=== PATIENT | female | born 1955 | race Caucasian/White ===

== ENCOUNTER → 2018-03-01 10:08 | Outpatient (REF) | payer SELFPAY | LOC: OM 10:08 | PROVIDERS: PCP Family Medicine; Visit Provider Nurse Practitioner Family | DX: Z02.1 Encounter for pre-employment examination (principal) ==

== ENCOUNTER 2018-07-15 00:50 | Outpatient (CLI) | payer OTHER, SELFPAY ==
--- NOTE | 2018-07-15 11:30 | DI.CT_ITS ---
SYMPTOM/DIAGNOSIS: ABD PAIN, R10.9, WT LOSS, F63.4, NAUSEA, R11.0, TOBACCO USE, Z72.0 CHEST, ABDOMEN AND PELVIC CT: Comparison is made with CT of the abdomen and pelvis dated 11/09/17. Images were performed from the clavicles through the ischial tuberosities after IV and oral contrast. There is dilatation of the ascending aorta to 4.1 cm. There is no evidence of dissection. No pleural or pericardial effusions or adenopathy is seen. No infiltrates or pulmonary nodules are identified. Screw and plate fixation is noted in the left clavicle. No lytic or blastic bony lesions are seen. Nerve root sheath cysts are noted in the sacral levels. Degenerative disc changes are noted. The patient is status post cholecystectomy. The liver, spleen, pancreas, kidneys and adrenals are unremarkable. The appendix is normal. The patient is status post hysterectomy. The bladder is unremarkable. Atherosclerotic changes are seen in the abdominal aorta. There is no evidence of an aneurysm. IMPRESSION: Dilatation of the ascending to 4.1 cm. No acute abnormality is seen in the chest, abdomen or pelvis.
[2018-07-15 11:51] LABS: CREATININE 0.86 mg/dL (0.55-1.02)
[2018-07-15] MEDS: Omnipaque 350 MG/ML 100 ML BTL IJ (13:38)
== END 2018-07-15 01:10 ==
PROVIDERS: PCP Family Medicine; Visit Provider Family Medicine
DX: R10.9 Unspecified abdominal pain (principal); R63.4 Abnormal weight loss; R11.0 Nausea; I77.819 Aortic ectasia, unspecified site; Z72.0 Tobacco use
CPT/HCPCS: 36415; 74177; 71260; 82565; J3490

== ENCOUNTER 2018-12-17 14:58 | Observation (INO) | payer MEDICAID, SELFPAY ==
[2018-12-17] VITALS (24 sets, daily range): BP systolic 114–166; BP diastolic 71–141; PULSE 70–131; RESP 13–21; TEMP 36.4–37.1; O2SAT 79–100
--- NOTE | 2018-12-17 15:03 | DI.RAD_ITS ---
SYMPTOM/DIAGNOSIS: UNRESPONSIVE, ? FX AP PELVIS: A single AP view of the pelvis was obtained. A single view is not adequate to exclude fracture but no fracture is identified on this film. Presumed old deformity of left iliac wing noted, this appears to have been present on previous CT of 07/15/18. PA AND LATERAL CHEST: The heart is enlarged. The lungs are grossly clear and well expanded. There may be slight pulmonary interstitial prominence on a chronic basis. No focal consolidation is seen. CONCLUSION: No evidence of acute disease.
--- NOTE | 2018-12-17 15:04 | W.ED.GENAD ---
Discharge Plan Disposition Patient Disposition: [facility] INPATIENT Condition: Stable Discharge Details Chief Complaint: AMS/LOC Clinical Impression: Altered mental status, Unresponsive state Admit Date/Time: 12/17/18 17:26 Admit Provider: Alfredo Phillips Attending Provider: Alfredo Phillips Primary Care Provider: Ailyn Barbosa ED Provider: Jessica Jimenes Medical Decision Making 63-year-old female with a history of reported spinal cancer, hypertension, hyperlipidemia, migraines and GERD who presents for unresponsiveness since 8 AM this morning. Fingerstick per EMS 130s, no response to Narcan. Vitals within normal limits per EMS, slightly hypotensive with systolic blood pressure in the 100s. EMS noted eyelids fluttering. Unable to assess for gag reflex. Patient taken immediately to CT to rule out CVA and no obvious acute bleeding on CT. Patient noted to have episode of shaking while and CT which did not appear consistent with seizure-like activity as it was waxing and waning. 1520 -- + gag reflex noted after back from CT. Vitals within normal limits. She still has intermittent shaking noted in R upper extremity but this resolves when lifting extremity. Does not appear c/w obvious seizure. Will give a dose of ativan to monitor response. EKG notes a rate of 88, sinus, and no acute ST findings. 1545 --roommate now present in the ED and states that patient was at her normal baseline last night. States she smokes marijuana but denies any alcohol or other drug use. He states he found patient at 2 PM this afternoon laying on the ground next to the toilet. There is no evidence of trauma. He states he believed that patient mowed the lawn and did some gardening today due to work noted around the house. He states that patient was recently terminated from her job in September and has been stressed due to this. Roommate also states that patient told him she was diagnosed with spinal cancer last year. There is no mention of this in the primary care doctor's note from 1 week ago. During this discussion in the room, patient appeared to demonstrate purposeful movement, twitching fingers in the L hand and moving both shoulders and R arm. Review of records from PCP office with Dr. Barbosa on 12/07/18 notes that patient was evaluated for her chronic low back pain and had refill of her tramadol. Bottle is present in the ED and notes that it is near full. Dr. Barbosa's note states that patient has been frustrated and having a hard time dealing with the recent loss of her job and inability to obtain disability. Labs and imaging reviewed so far and unremarkable. Normal white blood cell count, troponin negative, urinalysis notes ketones but no obvious infection. Brother is now present in the ED who states that he lives behind patient and did notice some tools outside in the yard today and believes she mowed the lawn. He denies any known history of seizures and states this is unlike her baseline. 1710 --remainder of imaging reviewed and unremarkable for acute findings. CT cervical spine notes a 1.5 cm right thyroid nodule and thyroid ultrasound recommended. 1720 --reassessment of patient noted that she has some purposeful movement but still unresponsive to voice and painful stimuli. Will admit for unresponsiveness and continued altered mental status. As roommate and brother had not seen patient earlier today, there is an unknown downtime when she was found at 2 PM and therefore would be contraindicated for TPA, and as she has had purposeful movement noted b/l at times, does not appear consistent with CVA, but likely can consider MRI upon admission. 1730 --d/w Dr. Phillips - accepts pt for admission. Medical Records Medical records reviewed: Yes I reviewed the patient's medical records. Imaging Data Radiologic Study: Radiologist's impression: CT Head Without Contrast EXAM DATE/TIME: 12/17/2018 3:02 PM CLINICAL HISTORY: 63 years old, female; Signs and symptoms; Other: Unresponsive, R/O acute CVA; Patient HX: Patient has spinal CA TECHNIQUE: Imaging protocol: Axial computed tomography images of the head without contrast. Coronal and sagittal reformatted images were created and reviewed. Radiation optimization: All CT scans at this facility use at least one of these dose optimization techniques: automated exposure control; mA and/or kV adjustment per patient size (includes targeted exams where dose is matched to clinical indication); or iterative reconstruction. Other technique: STROKE PROTOCOL was implemented. COMPARISON: No relevant prior studies available. FINDINGS: Brain: Age appropriate involutional change. No cerebral edema. No large territorial infarct. Normal hernandez-white differentiation. Midline shift: No extra-axial collections. No mass or midline shift. Ventricles: The ventricles are normal in position. No hydrocephalus. Bones/joints: No acute fracture. Sinuses: Mild mucosal thickening in the ethmoid sinuses. No air-fluid levels. Mastoid air cells: The tympanomastoid air cells are normally aerated as visualized. Orbits: The orbits are unremarkable as visualized. Soft tissues: The soft tissues are unremarkable. Vasculature: Calcification of the cavernous carotid arteries. IMPRESSION: 1. No acute intracranial findings. 2. As a negative CT scan does not exclude an acute stroke, if there is persistent concern for an acute infarct, followup MRI of the brain with diffusion weighted images (if there are no contraindications to MRI) or CT angiogram of the head and neck with perfusion imaging could be performed. Alternatively CT scan of the brain within 24 hours is recommended. Radiologic Study #2: Radiologist's impression: XR Chest, 2 Views EXAM DATE/TIME: 12/17/2018 3:03 PM CLINICAL HISTORY: 63 years old, female; Signs and symptoms; Other: Unresponsive, R/O acute process TECHNIQUE: Imaging protocol: XR of the chest, 2 views. COMPARISON: CT Abdomen^CAP WITH (Adult) 07/15/2018 1:24 PM FINDINGS: Lungs: Mild interstitial prominence may represent interstitial edema or inflammation. No focal parenchymal lung lesions. Pleural space: No pleural effusion. No pneumothorax. Heart/Mediastinum: Mild cardiomegaly. This appearance may be accentuated by AP portable technique. Vasculature: Tortuous calcified thoracic aorta. Bones/joints: Status post ORIF talar fracture. Widening of the LEFT acromioclavicular joint. Degenerative change) or clavicular joint. No acute osseous findings. Mild degenerative changes of the thoracic spine. IMPRESSION: 1. Mild cardiomegaly. 2. Mild interstitial prominence may represent interstitial edema or inflammation. Radiologic Study #3: Radiologist's impression: CT Cervical Spine Without Contrast EXAM DATE/TIME: 12/17/2018 3:25 PM CLINICAL HISTORY: 63 years old, female; Signs and symptoms; Other: R/O fracture, unknown injury TECHNIQUE: Imaging protocol: Axial computed tomography images of the cervical spine without contrast. Coronal and sagittal reformatted images were created and reviewed. Radiation optimization: All CT scans at this facility use at least one of these dose optimization techniques: automated exposure control; mA and/or kV adjustment per patient size (includes targeted exams where dose is matched to clinical indication); or iterative reconstruction. COMPARISON: No relevant prior studies available. FINDINGS: Vertebrae: Straightening of cervical lordosis. Mild dextroscoliosis. Mild anterolisthesis at C3-C4 may be on degenerative basis. Multilevel disc space narrowing from C3-C4 through C7-T1 and at T2-T3. Endplate osteophytes, facet arthropathy, and uncovertebral osteophyte formation at multiple levels. Multilevel bilateral foraminal stenosis. Mild central canal stenosis at C3-C4 through C6-C7. No acute fracture or traumatic subluxation. Discs/Spinal canal/Neural foramina: See Vertebrae Finding. Other bones/joints: No destructive osseous lesions. Soft tissues: Soft tissues are unremarkable. Oropharynx: Foci of calcification of the palatine and lingual tonsils consistent with prior infection or inflammation. Thyroid: 1.5 cm hypoattenuated RIGHT thyroid nodule. Lungs: Lung apices are grossly unremarkable. IMPRESSION: 1. No acute findings. 2. 1.5 cm RIGHT thyroid nodule. Thyroid sonography is recommended. Reference: Rusty Serna, et al. (2015). Managing Incidental Thyroid Nodules Detected on Imaging: White Paper of the ACR Incidental Thyroid Findings Committee. Journal of the [place] [employer], 12(2), 143-150. Radiologic Study #4: Radiologist's impression: XR Pelvis EXAM DATE/TIME: 12/17/2018 3:25 PM CLINICAL HISTORY: 63 years old, female; Signs and symptoms; Other: R/O fracture TECHNIQUE: Imaging protocol: XR pelvis. Views: 1 or 2 view. COMPARISON: CT Abdomen^CAP WITH (Adult) 07/15/2018 1:24 PM FINDINGS: Bones/joints: There is deformity of the LEFT lateral iliac bone which is likely developmental in nature and is unchanged since previous scan. No acute fracture or dislocation. Degenerative changes in the lumbar spine and sacroiliac joints. No aggressive osseous lesions. Soft tissues: Surgical clip in RIGHT lower quadrant. IMPRESSION: No acute findings. Lab Data Lab results reviewed: Yes I reviewed the patient's lab results. Laboratory Tests Range/Units 12/17/18 12/17/18 12/17/18 15:15 15:15 15:15 WBC (4.4-10.8) k/cumm 8.45 RBC (4.00-5.20) m/cumm 4.76 Hgb (12.0-15.5) g/dL 14.7 Hct (36.0-46.0) % 43.5 MCV (80-95) fL 91.4 MCH (27.0-33.0) pg 30.9 MCHC (32.0-36.0) g/dL 33.8 RDW (11.7-14.6) % 13.0 Plt Count (130-400) x1000/uL 187 MPV (8.0-11.0) fL 9.6 Immature Gran % 0.2 Neutrophils % 73.0 Lymphocytes % 18.1 Monocytes % 6.9 Eosinophils % 1.4 Basophils % 0.4 Absolute Neutrophils (1.2-6.7) k/cumm 6.17 Absolute Lymphocytes (1.2-3.4) k/cumm 1.53 Absolute Monocytes (0.11-0.7) k/cumm 0.58 Absolute Eosinophils (0.0-0.7) k/cumm 0.12 Absolute Basophils (0.0-0.2) k/cumm 0.03 Sodium (136-145) mmol/L 139 Potassium (3.5-5.1) mmol/L 3.4 L Chloride (98-107) mmol/L 100 Carbon Dioxide (21.0-32.0) mmol/L 25.5 Anion Gap (3-11) mmol/L 13.5 H BUN (7-18) mg/dL 16 Creatinine (0.55-1.02) mg/dL 0.96 Estimated GFR/1.73 m2 (mL/min/1.73m2) 59.09 Glucose (70-100) mg/dL 116 H Calcium (8.5-10.1) mg/dL 9.5 Magnesium (1.8-2.4) mg/dL 2.3 Total Bilirubin (0.2-1.0) mg/dL 0.2 AST (15-37) U/L 14 L ALT (12-78) U/L 20 Alkaline Phosphatase (46-116) U/L 107 Troponin I (0.00-0.06) ng/mL < 0.02 Total Protein (6.4-8.2) g/dL 7.9 Albumin (3.4-5.0) g/dL 3.9 Urine Color (Yellow) Urine Clarity Urine pH (5-8) Ur Specific [place] (1.005-1.025) Urine Protein (Negative) mg/dL Urine Ketones (Negative) mg/dL Urine Blood (Negative) Urine Nitrite (Negative) Urine Bilirubin (Negative) Urine Urobilinogen (Up TO 0.2) EU/dL Ur Leukocyte Esterase (Negative) Urine RBC (0-2) Urine WBC (0-5) HPF Ur Epithelial Cells (Negative) HPF Urine Crystals (Negative) HPF Urine Bacteria (Negative) HPF Urine Casts (Negative) LPF Urine Mucus (Negative) Ur Culture Indicated? Urine Glucose (Negative) mg/dL Salicylates (2.8-20.0) mg/dL 5.6 Urine Opiates Screen (Negative) Urine Methadone Screen (Negative) Acetaminophen (10-30) ug/mL < 2 L Ur Barbiturates Screen (Negative) Ur Tricyclics Screen (Negative) Ur Amphetamines Screen (Negative) U Benzodiazepines Scrn (Negative) Urine Cocaine Screen (Negative) Ur THC Screen (Negative) Ethyl Alcohol (<3) mg/dL Range/Units 12/17/18 12/17/18 12/17/18 15:15 15:27 15:27 WBC (4.4-10.8) k/cumm RBC (4.00-5.20) m/cumm Hgb (12.0-15.5) g/dL Hct (36.0-46.0) % MCV (80-95) fL MCH (27.0-33.0) pg MCHC (32.0-36.0) g/dL RDW (11.7-14.6) % Plt Count (130-400) x1000/uL MPV (8.0-11.0) fL Immature Gran % Neutrophils % Lymphocytes % Monocytes % Eosinophils % Basophils % Absolute Neutrophils (1.2-6.7) k/cumm Absolute Lymphocytes (1.2-3.4) k/cumm Absolute Monocytes (0.11-0.7) k/cumm Absolute Eosinophils (0.0-0.7) k/cumm Absolute Basophils (0.0-0.2) k/cumm Sodium (136-145) mmol/L Potassium (3.5-5.1) mmol/L Chloride (98-107) mmol/L Carbon Dioxide (21.0-32.0) mmol/L Anion Gap (3-11) mmol/L BUN (7-18) mg/dL Creatinine (0.55-1.02) mg/dL Estimated GFR/1.73 m2 (mL/min/1.73m2) Glucose (70-100) mg/dL Calcium (8.5-10.1) mg/dL Magnesium (1.8-2.4) mg/dL Total Bilirubin (0.2-1.0) mg/dL AST (15-37) U/L ALT (12-78) U/L Alkaline Phosphatase (46-116) U/L Troponin I (0.00-0.06) ng/mL Total Protein (6.4-8.2) g/dL Albumin (3.4-5.0) g/dL Urine Color (Yellow) Yellow Urine Clarity Clear Urine pH (5-8) 6.0 Ur Specific [place] (1.005-1.025) 1.020 Urine Protein (Negative) mg/dL Negative Urine Ketones (Negative) mg/dL 40 H Urine Blood (Negative) Moderate H Urine Nitrite (Negative) Negative Urine Bilirubin (Negative) Negative Urine Urobilinogen (Up TO 0.2) EU/dL 0.2 Ur Leukocyte Esterase (Negative) Negative Urine RBC (0-2) 20-50 H Urine WBC (0-5) HPF 3-5 Ur Epithelial Cells (Negative) HPF Few Urine Crystals (Negative) HPF Negative Urine Bacteria (Negative) HPF Negative Urine Casts (Negative) LPF 0-2 hyaline Urine Mucus (Negative) Negative Ur Culture Indicated? No Urine Glucose (Negative) mg/dL Negative Salicylates (2.8-20.0) mg/dL Urine Opiates Screen (Negative) Negative Urine Methadone Screen (Negative) Negative Acetaminophen (10-30) ug/mL Ur Barbiturates Screen (Negative) Negative Ur Tricyclics Screen (Negative) Negative Ur Amphetamines Screen (Negative) Negative U Benzodiazepines Scrn (Negative) Negative Urine Cocaine Screen (Negative) Negative Ur THC Screen (Negative) Positive Ethyl Alcohol (<3) mg/dL < 3.0 ECG Data Attestation: I personally reviewed and interpreted this ECG (s) as follows: Interpretation: #1 - Rate of 88, sinus, no acute ST elevation or depression, QTC 438. QRS 88. #2 - done due to concern from nurse for possible tachycardia - HR 180s on monitor but pt appeared to be shaking - HR on EKG 87, sinus, no acute ST elevation or depression, QTc 452, QRS 88. HPI General Mode of arrival: EMS. Date/Time Provider Initiated Documentation: 12/17/18 15:01. Limitations to Documentation: altered mental status. Information obtained by: EMS. HPI Narrative: Patient is a 63-year-old female with a history of reported spinal cancer, GERD, hypertension, high cholesterol, migraines and tobacco abuse who presents for unresponsiveness since 8 AM this morning. Per EMS, patient was found by her roommate to be unresponsive at 8 AM. EMS states upon their arrival, patient was noted to have eyelids fluttering but otherwise has been unresponsive. Fingerstick 130s. No response to Narcan. Patient is reported to be taking tramadol but no other known opioids. Related Data Home Medications Medication Instructions Recorded Confirmed propranolol 20 mg PO BID 08/20/14 12/17/18 Colace 50 mg PO BID PRN tab-cap 10/03/14 12/25/17 senna 8.6 mg PO BID PRN 10/03/14 12/17/18 tramadol 50 mg PO QID PRN #20 tab NS 11/15/17 12/17/18 cranberry extract 500 mg PO DAILY 11/22/17 12/25/17 promethazine 25 mg PO Q6H PRN #15 tab 11/24/17 12/25/17 oxycodone 5 mg PO Q6H PRN PRN #15 tab 12/01/17 12/25/17 pantoprazole [Protonix] 40 mg PO DAILY AM 12/17/18 12/17/18 Previous Rx's Medication Instructions Recorded promethazine 25 mg PO Q6H PRN #15 tab 11/24/17 oxycodone 5 mg PO Q6H PRN PRN #15 tab 12/01/17 Allergies Allergy/AdvReac Type Severity Reaction Status Date / Time Penicillins Allergy severe Unverified 12/25/17 18:51 rash, anaphylaxis sumatriptan [From Imitrex] Allergy chest pain Unverified 12/25/17 18:51 Review of Systems Review of Systems Unobtainable due to mental status [facility] Medical History Cancer (Acute) Hyperlipidemia Migraine Osteoarthritis Tobacco abuse Surgical History Cholecystectomy (12/01/17) EGD - MAC (11/24/17) Social History Smoking/Tobacco Use Status: Current every day Drug use: Never Do you feel safe in your relationship?: Yes Exam Const General: no acute distress Orientation: other (unresponsive to voice, painful stimuli) HENMT Head: normal to inspection Ears: hearing grossly normal bilaterally, external ears normal and TM's normal bilaterally General nose exam: external nose normal Face and sinus: normal facial exam Teeth and gingiva: dentition normal Other: unable to open mouth to assess gag reflex Eyes General: appearance normal, both eyes and all related structures Eyelids: other (eyelashes fluttering) Pupils: PERRL Neck Neck: normal visual inspection Lymphatic: no lymphadenopathy noted Chest Chest: normal inspection of the chest Resp Effort & Inspection: normal respiratory effort Auscultation: clear to auscultation bilaterally Cardio Rate: regular rate Rhythm: regular rhythm GI Inspection: normal to inspection Palpation: soft, not firm, no guarding, no hepatosplenomegaly, no masses and nontender Auscultation: normal bowel sounds Skin General skin exam: no rashes or lesions noted Neuro General: other (unresponsive to voice, painful stimuli) Extrem General: normal to inspection and normal capillary refill
--- NOTE | 2018-12-17 15:16 | DI.CT_ITS ---
SYMPTOM/DIAGNOSIS: UNRESPONSIVE, ? ACUTE CVA, UNKNOWN INJURY, ? C SPINE FX NONCONTRAST HEAD CT: A noncontrast cranial CT was performed. There is mild generalized cerebral atrophy. There is no evidence of acute intracranial hemorrhage, mass effect or midline shift. Paranasal sinuses and mastoid air cells are well aerated as visualized. Orbital and temporal bone structures appear intact. CONCLUSION: No evidence of acute intracranial process. CERVICAL SPINE CT: CT examination of the cervical spine was performed utilizing multi slice acquisition and multi planar reconstruction. No cervical mass or adenopathy is seen. Tracheal laryngeal structures appear intact. Images obtained through the lung apices are unremarkable There are marked degenerative changes involving the cervical spine. There is no evidence of acute fracture or dislocation. CONCLUSION: No evidence of acute cervical injury.
[2018-12-17 15:29] LABS: Abs Immature Grans 0.02 k/cumm (0.0-0.09); Absolute Basophil Count 0.03 k/cumm (0.0-0.2); Absolute Eosinophil Count 0.12 k/cumm (0.0-0.7); Absolute Lymphocyte Count 1.53 k/cumm (1.2-3.4); Absolute Monocyte Count 0.58 k/cumm (0.11-0.7); Absolute Neutrophil Count 6.17 k/cumm (1.2-6.7); Basophils % 0.4; Eosinophils % 1.4; HCT 43.5 % (36.0-46.0); HGB 14.7 g/dL (12.0-15.5); Immature Grans % 0.2; Lymphocytes % 18.1; Mean Corp. HGB Concentration 33.8 g/dL (32.0-36.0); Mean Corpuscular Hemoglobin 30.9 pg (27.0-33.0); Mean Corpuscular Volume 91.4 fL (80-95); Mean Platelet Volume 9.6 fL (8.0-11.0); Monocytes % 6.9; Platelet Count 187 x1000/uL (130-400); RBC 4.76 m/cumm (4.00-5.20); White Blood Cell Count 8.45 k/cumm (4.4-10.8)
[2018-12-17] MEDS: LORazepam 2 MG/ML VIAL (15:35)
--- NOTE | 2018-12-17 15:35 | DI.VRAD_ITS ---
EXAM: CT Head Without Contrast EXAM DATE/TIME: 12/17/2018 3:02 PM CLINICAL HISTORY: 63 years old, female; Signs and symptoms; Other: Unresponsive, R/O acute CVA; Patient HX: Patient has spinal CA TECHNIQUE: Imaging protocol: Axial computed tomography images of the head without contrast. Coronal and sagittal reformatted images were created and reviewed. Radiation optimization: All CT scans at this facility use at least one of these dose optimization techniques: automated exposure control; mA and/or kV adjustment per patient size (includes targeted exams where dose is matched to clinical indication); or iterative reconstruction. Other technique: STROKE PROTOCOL was implemented. COMPARISON: No relevant prior studies available. FINDINGS: Brain: Age appropriate involutional change. No cerebral edema. No large territorial infarct. Normal hernandez-white differentiation. Midline shift: No extra-axial collections. No mass or midline shift. Ventricles: The ventricles are normal in position. No hydrocephalus. Bones/joints: No acute fracture. Sinuses: Mild mucosal thickening in the ethmoid sinuses. No air-fluid levels. Mastoid air cells: The tympanomastoid air cells are normally aerated as visualized. Orbits: The orbits are unremarkable as visualized. Soft tissues: The soft tissues are unremarkable. Vasculature: Calcification of the cavernous carotid arteries. IMPRESSION: 1. No acute intracranial findings. 2. As a negative CT scan does not exclude an acute stroke, if there is persistent concern for an acute infarct, followup MRI of the brain with diffusion weighted images (if there are no contraindications to MRI) or CT angiogram of the head and neck with perfusion imaging could be performed. Alternatively CT scan of the brain within 24 hours is recommended. ASSESSMENT: ASPECTS ([place] Stroke Program Early CT Score) is 10. Dictated and Authenticated by: Charley Dalton MD. Ordering:LAI Lopez MD
[2018-12-17 15:50] LABS: Bilirubin Negative (Negative); Blood Moderate (Negative); Clarity Clear; Glucose Negative (Negative); Ketones 40 mg/dL (Negative); Leukocyte Esterase Negative (Negative); Nitrite Negative (Negative); Urobilinogen 0.2 EU/dL (Up TO 0.2)
[2018-12-17 15:54] LABS: ETHANOL BLOOD < 3.0 mg/dL (<3)
[2018-12-17 15:56] LABS: *AMPHETAMINES SCREEN URINE Negative (Negative); *BARBITURATES SCREEN URINE Negative (Negative); *BENZODIAZEPINES SCREEN URINE Negative (Negative); Cannabinoids THC POSITIVE (Negative); Cocaine Screen,Urine Negative (Negative); METHADONE URINE SCREEN Negative (Negative); OPIATES URINE SCREEN Negative (Negative)
[2018-12-17 15:57] LABS: Tricyclic Antidepressants Negative (Negative)
[2018-12-17 15:58] LABS: ALT 20 U/L (12-78); AST 14 U/L (15-37); Albumin 3.9 g/dL (3.4-5.0); Alkaline Phosphatase 107 U/L (46-116); Anion Gap 13.5 mmol/L (3-11); BUN 16 mg/dL (7-18); Bilirubin, Total 0.2 mg/dL (0.2-1.0); CO2 25.5 mmol/L (21.0-32.0); CREATININE 0.96 mg/dL (0.55-1.02); Calcium 9.5 mg/dL (8.5-10.1); Chloride 100 mmol/L (98-107); Estimated GFR 59.09 (mL/min/1.73m2); Glucose 116 mg/dL (70-100); Magnesium 2.3 mg/dL (1.8-2.4); Potassium 3.4 mmol/L (3.5-5.1); Sodium 139 mmol/L (136-145); Total Protein 7.9 g/dL (6.4-8.2)
[2018-12-17 16:03] LABS: Troponin I < 0.02 ng/mL (0.00-0.06)
[2018-12-17 16:15] LABS: Bacteria Negative HPF (Negative); C & S Indicated? No; Casts 0-2 Hyaline LPF (Negative); Crystals Negative HPF (Negative); Epithelial Cells Few HPF (Negative); Mucus Negative (Negative); RBC 20-50 (0-2)
[2018-12-17 16:41] LABS: Salicylate 5.6 mg/dL (2.8-20.0)
--- NOTE | 2018-12-17 16:41 | NUR.NOTE ---
pt returned to CT scan with nurse . she had some purposeful movement with her head position . she has not opened her eyes. her brother has arrived . he has spoken to Dr Jimenes, Nursing Note:
[2018-12-17 16:53] LABS: Acetaminophen < 2 ug/mL (10-30)
--- NOTE | 2018-12-17 17:05 | DI.VRAD_ITS ---
EXAM: CT Cervical Spine Without Contrast EXAM DATE/TIME: 12/17/2018 3:25 PM CLINICAL HISTORY: 63 years old, female; Signs and symptoms; Other: R/O fracture, unknown injury TECHNIQUE: Imaging protocol: Axial computed tomography images of the cervical spine without contrast. Coronal and sagittal reformatted images were created and reviewed. Radiation optimization: All CT scans at this facility use at least one of these dose optimization techniques: automated exposure control; mA and/or kV adjustment per patient size (includes targeted exams where dose is matched to clinical indication); or iterative reconstruction. COMPARISON: No relevant prior studies available. FINDINGS: Vertebrae: Straightening of cervical lordosis. Mild dextroscoliosis. Mild anterolisthesis at C3-C4 may be on degenerative basis. Multilevel disc space narrowing from C3-C4 through C7-T1 and at T2-T3. Endplate osteophytes, facet arthropathy, and uncovertebral osteophyte formation at multiple levels. Multilevel bilateral foraminal stenosis. Mild central canal stenosis at C3-C4 through C6-C7. No acute fracture or traumatic subluxation. Discs/Spinal canal/Neural foramina: See Vertebrae Finding. Other bones/joints: No destructive osseous lesions. Soft tissues: Soft tissues are unremarkable. Oropharynx: Foci of calcification of the palatine and lingual tonsils consistent with prior infection or inflammation. Thyroid: 1.5 cm hypoattenuated RIGHT thyroid nodule. Lungs: Lung apices are grossly unremarkable. IMPRESSION: 1. No acute findings. 2. 1.5 cm RIGHT thyroid nodule. Thyroid sonography is recommended. Reference: Rusty Serna., et al. (2015). Managing Incidental Thyroid Nodules Detected on Imaging: White Paper of the ACR Incidental Thyroid Findings Committee. Journal of the [place] [employer], 12(2), 143-150. Dictated and Authenticated by: Charley Dalton MD. Ordering:LAI Lopez MD
--- NOTE | 2018-12-17 17:08 | DI.VRAD_ITS ---
EXAM: XR Pelvis EXAM DATE/TIME: 12/17/2018 3:25 PM CLINICAL HISTORY: 63 years old, female; Signs and symptoms; Other: R/O fracture TECHNIQUE: Imaging protocol: XR pelvis. Views: 1 or 2 view. COMPARISON: CT Abdomen^CAP WITH (Adult) 07/15/2018 1:24 PM FINDINGS: Bones/joints: There is deformity of the LEFT lateral iliac bone which is likely developmental in nature and is unchanged since previous scan. No acute fracture or dislocation. Degenerative changes in the lumbar spine and sacroiliac joints. No aggressive osseous lesions. Soft tissues: Surgical clip in RIGHT lower quadrant. IMPRESSION: No acute findings. Dictated and Authenticated by: Charley Dalton MD. Ordering:LAI Lopez MD
--- NOTE | 2018-12-17 17:10 | DI.VRAD_ITS ---
EXAM: XR Chest, 2 Views EXAM DATE/TIME: 12/17/2018 3:03 PM CLINICAL HISTORY: 63 years old, female; Signs and symptoms; Other: Unresponsive, R/O acute process TECHNIQUE: Imaging protocol: XR of the chest, 2 views. COMPARISON: CT Abdomen^CAP WITH (Adult) 07/15/2018 1:24 PM FINDINGS: Lungs: Mild interstitial prominence may represent interstitial edema or inflammation. No focal parenchymal lung lesions. Pleural space: No pleural effusion. No pneumothorax. Heart/Mediastinum: Mild cardiomegaly. This appearance may be accentuated by AP portable technique. Vasculature: Tortuous calcified thoracic aorta. Bones/joints: Status post ORIF talar fracture. Widening of the LEFT acromioclavicular joint. Degenerative change) or clavicular joint. No acute osseous findings. Mild degenerative changes of the thoracic spine. IMPRESSION: 1. Mild cardiomegaly. 2. Mild interstitial prominence may represent interstitial edema or inflammation. Dictated and Authenticated by: Charley Dalton MD. Ordering:LAI Lopez MD
--- NOTE | 2018-12-17 17:50 | HPE_ITS ---
Date of service: 12/17/18 Time of Service: 17:50 Assessment and Plan (1) Altered mental state: Start date: 12/17/18 Current visit: Yes Status: Acute This is a 63-year-old lady who was admitted for observation after an event of altered mental status with unknown etiology other than possibly a migraine equivalent with left hemiparesis which has been historically recurrent by patient's history upon admission never with associated severe altered mental status as she was found today. She was outside working in the heat and is darkly tanned though and she did not appear dehydrated upon admission. She has been under extreme stress recently worried about a spinal cancer which has not been diagnosed or evaluated and 40 pound weight loss with chronic nausea over last year with probable depression. Further evaluation of the weight loss is warranted. Her loss of consciousness appearance of urinary incontinence is also consistent with a possible seizure and she could have been postictal when found with slowly resolving but prolonged return to baseline mentation. Her tremors did not respond to Ativan in the ED and this was not given when she was on MedSu rg with tremors intermittently. She will be observed overnight with telemetry and monitoring lab as well as IV hydration with potassium supplements that she had a slightly low potassium. Did not appear to overdose on any of her medications but she did have ketones in her urine indicating possible poor intake recently. Presently she persists with left hemiparesis and this has not from the past with her migraines but not this severe. CT scan imaging was negative for CVA but she does have severe degenerative disc disease of her C- spine with some spinal stenosis. She does deserve an MRI but this could be performed outpatient if she resolves her hemiparesis. If she is not improving she may need to be admitted or transferred for further evaluation. By history she has never had persistent left hemiparesis with her migraines. We also consider a conversion disorder with her severe depressive symptoms. Outpatient psychiatric evaluation would be appropriate. Qualifiers: Altered mental status type: transient alteration of awareness Qualified Code(s): R40.4 - Transient alteration of awareness (2) Acute left hemiparesis: Start date: 12/17/18 Current visit: Yes Status: Acute As per discussion altered mental status the patient has a prolonged left hemiparesis compared to her history of migraine headaches with left-sided weakness. This may be a reversible neurological deficit or TIA without CVA but MRI would be helpful with this differential diagnosis. There is no indication for acute interventions. I will at least give her a baby aspirin daily. (3) Migraine: Current visit: No Status: Chronic Patient did not have a headache today but did have a left-sided weakness and altered mental status or syncopal type episode is not typical with her migraines. Once again she could have had a seizure activity but is not active and we will hold off changing her medical therapy for now. If she has recurrent seizure-like activity we could begin treatment during this observation. It appears she does not take anything specifically for her migraine headaches. She was on propranolol in the past probably for prophylaxis. This is not on her active medication list but she is on gabapentin. 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 Her roommate saw her the evening prior to admission and she was normal and the day of admission found her on her bathroom floor on her back but no obvious trauma with urinary incontinence but no seizure-like activity at the time. EMS was called and checked her glucometer which was in the 130s and gave her Narcan with no response. The patient is currently on tramadol. Her bottle of tramadol at home was almost full and did not look like she was taking more of this medication recently. In the ED the patient was barely responsive moving her left side less than her right side but had a gag reflex with some purposeful movements and tremors which were not seizure-like. In the ED she was evaluated for possible CVA with CT scanning of her head and C-spine which were unrevealing. The patient was found at 2 PM and had not been seen since the morning or evening before therefore with an unknown amount of time down would have disqualified her for TPA per CVA protocol. It was decided to observe her overnight considering transfer if she had worsening symptoms since MRI was not be available at this facility. Repeat CT scan could also be performed if her neurological status changed. Shortly after the patient was admitted to the floor, the nurse was concerned about her left side being flaccid but upon calling the ED physician who examined her this finding has been waxing and waning since her admission to the ED. By the time I arrived at the hospital and saw the patient she had less flaccidity of her left side and was moving her arm and leg and was awake and talking which was different from her ED evaluation. She did admit to having migraine headaches with left-sided weakness in the arms and legs in the past and today she did not have a headache but feels this weakness was more severe but similar to her previous episodes. Upon interview she did not have a headache today at all and she was feeling depressed and down about her chronic medical problems thinking that she has tumors on her thoracic spine which have not been diagnosed because of her unwillingness to proceed with evaluation because of cost. She was last seen at [facility] in the orthopedic department for thoracic back pain and had been recommended to have an MRI which has never been done. CT scan did reveal degenerative changes with scoliosis and possibility of nerve root impingement at the level of T6-T7 and T8. Patient had lost 40 pounds with chronic nausea over the last year and told that orthopedic senior firmware engineer in May 2018 that her PMD was doing nothing about it. 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 I did encourage her to follow through with evaluation for what she thinks are spinal cancers. She is anxious, appears hypervigilant with thinking the worse and obviously depressed which may be the main reason for her weight loss. Review of Systems Constitutional Denies excessive sweating, Reports fatigue, Denies frequent falls, Reports headache(s) (Migraines with left hemiparesis not as severe as today), Denies night sweats and Reports weight loss (40 pounds in one year) Eyes Denies change in vision, Denies diplopia, Denies loss of vision and Denies photophobia ENT Reports headache(s) (Migraines with left hemiparesis not as severe as today), Denies hearing loss, Denies disequilibrium and Denies sinus pain Cardiovascular Denies diaphoresis, Reports syncope, Denies rapid heart rate, Denies edema, Denies irregular heart rhythm, Denies claudication, Denies palpitations and Denies dyspnea on exertion Respiratory Denies dyspnea on exertion Gastrointestinal Denies abdominal pain, Denies change in bowel habits, Reports nausea and Denies vomiting Genitourinary Denies abnormal vaginal bleeding and Denies hematuria Musculoskeletal Reports back pain (Around right flank and mid back), Reports myalgias, Reports arthralgias, Reports limited range of motion, Denies muscle weakness and Reports stiffness Neurologic Reports behavioral changes, Reports syncope, Denies frequent falls, Reports headache(s) (Migraines with left hemiparesis not as severe as today), Reports focal weakness, Denies loss of vision, Reports radicular pain (From mid thoracic back), Denies convulsions and Denies disequilibrium Psychiatric Reports behavioral changes, Reports change in appetite, Reports depression and Denies suicidal ideation (But hopelessness) Endocrine Denies cold intolerance, Denies excessive sweating, Reports fatigue, Denies heat intolerance and Denies palpitations Hematologic/Lymphatic Denies easy bleeding, Denies easy bruising and Denies lymphadenopathy [facility] Medical History Cancer (Suspected) Hyperlipidemia Migraine Osteoarthritis Tobacco abuse Surgical History History of hysterectomy with bilateral oophorectomy (Resolved) Cholecystectomy (12/01/17) EGD - MAC (11/24/17) Social History Smoking/Tobacco Use Status: Current every day Drug use: Never Do you feel safe in your relationship?: Yes Meds Home Medications Medication Instructions Recorded Confirmed Type propranolol 20 mg PO BID 08/20/14 12/17/18 History Colace 50 mg PO BID PRN tab-cap 10/03/14 12/17/18 History senna 8.6 mg PO BID PRN 10/03/14 12/17/18 History tramadol 50 mg PO TID PRN PRN #20 tab NS 11/15/17 12/17/18 History cranberry extract 500 mg PO DAILY 11/22/17 12/17/18 History promethazine 25 mg PO Q6H PRN #15 tab 11/24/17 12/25/17 Rx oxycodone 5 mg PO Q6H PRN PRN #15 tab 12/01/17 12/25/17 Rx amlodipine 5 mg PO DAILY 12/17/18 12/17/18 History gabapentin 300 mg PO TID 12/17/18 12/17/18 History pantoprazole [Protonix] 40 mg PO DAILY AM 12/17/18 12/17/18 History Allergies Allergy/AdvReac Type Severity Reaction Status Date / Time Penicillins Allergy severe Unverified 12/25/17 18:51 rash, anaphylaxis sumatriptan [From Imitrex] Allergy chest pain Unverified 12/25/17 18:51 Exam Narrative Exam Narrative: General: Patient is lethargic and slow with monotonous voice, in no acute distress but appears chronically depressed. She is alert and oriented x3. She appears older than stated age with marked sun damage over her exposed skin of the face and neck as well as her upper extremities. She is moderately obese despite the history of losing 40 pounds over the last year. HEENT: Normocephalic with eyes revealing pupils equal and reactive to light symmetrically, extraocular movement intact without nystagmus and sclera anicteric. Oropharynx with dry oral mucosa and tongue protruded in the midline. Ears normal. Neck: Supple without JVD or bruits. Back: Kyphotic with stooped posture and decreased range of motion, tender over the thoracic spine. No CVA tenderness. Lungs: Clear to auscultation and percussion with decreased aeration of the right hemithorax. Bronchovesicular breath sounds diffusely. Heart: Regular rate and rhythm with 3/6 systolic murmur left sternal border and no gallops. Breasts: Not examined. Abdomen: Obese contour, soft and nontender with no palpable hepatosplenomegaly. Bowel sounds positive all quadrants. Genitalia and rectal: Not examined. Extremities: Without pitting edema or cyanosis and no clubbing. All joints have fair range of motion with the left side passively. Neuro: Cranial nerves II through XII appear to be grossly intact, normal strength and movement on the right side with movement only against gravity on the left side, negative Babinski bilaterally, DTRs are decreased on the left compared to right. Sensory is grossly intact. Cerebellar testing was not performed patient in bed. Neuropsych: Memory appear to be intact remote and recent, mood is depressed with flattened affect and slow monotonous voice. She does appear to be hypervigilant with her reporting of past history with assumptions of a back cancer despite no work-up or pathology. Results Imaging Imaging Studies: EXAM: XR Chest, 2 Views EXAM DATE/TIME: 12/17/2018 3:03 PM CLINICAL HISTORY: 63 years old, female; Signs and symptoms; Other: Unresponsive, R/O acute process TECHNIQUE: Imaging protocol: XR of the chest, 2 views. COMPARISON: CT Abdomen^CAP WITH (Adult) 07/15/2018 1:24 PM FINDINGS: Lungs: Mild interstitial prominence may represent interstitial edema or inflammation. No focal parenchymal lung lesions. Pleural space: No pleural effusion. No pneumothorax. Heart/Mediastinum: Mild cardiomegaly. This appearance may be accentuated by AP portable technique. Vasculature: Tortuous calcified thoracic aorta. Bones/joints: Status post ORIF talar fracture. Widening of the LEFT acromioclavicular joint. Degenerative change) or clavicular joint. No acute osseous findings. Mild degenerative changes of the thoracic spine. IMPRESSION: 1. Mild cardiomegaly. 2. Mild interstitial prominence may represent interstitial edema or inflammation. Dictated and Authenticated by: Charley Dalton MD. EXAM: XR Pelvis EXAM DATE/TIME: 12/17/2018 3:25 PM CLINICAL HISTORY: 63 years old, female; Signs and symptoms; Other: R/O fracture TECHNIQUE: Imaging protocol: XR pelvis. Views: 1 or 2 view. COMPARISON: CT Abdomen^CAP WITH (Adult) 07/15/2018 1:24 PM FINDINGS: Bones/joints: There is deformity of the LEFT lateral iliac bone which is likely developmental in nature and is unchanged since previous scan. No acute fracture or dislocation. Degenerative changes in the lumbar spine and sacroiliac joints. No aggressive osseous lesions. Soft tissues: Surgical clip in RIGHT lower quadrant. IMPRESSION: No acute findings. Dictated and Authenticated by: Charley Dalton MD. EXAM: CT Cervical Spine Without Contrast EXAM DATE/TIME: 12/17/2018 3:25 PM CLINICAL HISTORY: 63 years old, female; Signs and symptoms; Other: R/O fracture, unknown injury TECHNIQUE: Imaging protocol: Axial computed tomography images of the cervical spine without contrast. Coronal and sagittal reformatted images were created and reviewed. Radiation optimization: All CT scans at this facility use at least one of these dose optimization techniques: automated exposure control; mA and/or kV adjustment per patient size (includes targeted exams where dose is matched to clinical indication); or iterative reconstruction. COMPARISON: No relevant prior studies available. FINDINGS: Vertebrae: Straightening of cervical lordosis. Mild dextroscoliosis. Mild anterolisthesis at C3-C4 may be on degenerative basis. Multilevel disc space narrowing from C3-C4 through C7-T1 and at T2-T3. Endplate osteophytes, facet arthropathy, and uncovertebral osteophyte formation at multiple levels. Multilevel bilateral foraminal stenosis. Mild central canal stenosis at C3-C4 through C6-C7. No acute fracture or traumatic subluxation. Discs/Spinal canal/Neural foramina: See Vertebrae Finding. Other bones/joints: No destructive osseous lesions. Soft tissues: Soft tissues are unremarkable. Oropharynx: Foci of calcification of the palatine and lingual tonsils consistent with prior infection or inflammation. Thyroid: 1.5 cm hypoattenuated RIGHT thyroid nodule. Lungs: Lung apices are grossly unremarkable. IMPRESSION: 1. No acute findings. 2. 1.5 cm RIGHT thyroid nodule. Thyroid sonography is recommended. Reference: Rusty Serna, et al. (2015). Managing Incidental Thyroid Nodules Detected on Imaging: White Paper of the ACR Incidental Thyroid Findings Committee. Journal of the [place] [employer], 12(2), 143-150. Dictated and Authenticated by: Charley Dalton MD. Labs : 12/17/18 15:15 12/17/18 15:15 Laboratory Results - last 24 hr 12/17/18 12/17/18 12/17/18 15:15 15:15 15:15 WBC 8.45 RBC 4.76 Hgb 14.7 Hct 43.5 MCV 91.4 MCH 30.9 MCHC 33.8 RDW 13.0 Plt Count 187 MPV 9.6 Immature Gran % 0.2 Neutrophils % 73.0 Lymphocytes % 18.1 Monocytes % 6.9 Eosinophils % 1.4 Basophils % 0.4 Absolute Neutrophils 6.17 Absolute Lymphocytes 1.53 Absolute Monocytes 0.58 Absolute Eosinophils 0.12 Absolute Basophils 0.03 Sodium 139 Potassium 3.4 L Chloride 100 Carbon Dioxide 25.5 Anion Gap 13.5 H BUN 16 Creatinine 0.96 Estimated GFR/1.73 m2 59.09 Glucose 116 H Calcium 9.5 Magnesium 2.3 Total Bilirubin 0.2 AST 14 L ALT 20 Alkaline Phosphatase 107 Troponin I < 0.02 Total Protein 7.9 Albumin 3.9 Urine Color Urine Clarity Urine pH Ur Specific [place] Urine Protein Urine Ketones Urine Blood Urine Nitrite Urine Bilirubin Urine Urobilinogen Ur Leukocyte Esterase Urine RBC Urine WBC Ur Epithelial Cells Urine Crystals Urine Bacteria Urine Casts Urine Mucus Ur Culture Indicated? Urine Glucose Salicylates 5.6 Urine Opiates Screen Urine Methadone Screen Acetaminophen < 2 L Ur Barbiturates Screen Ur Tricyclics Screen Ur Amphetamines Screen U Benzodiazepines Scrn Urine Cocaine Screen Ur THC Screen Ethyl Alcohol 12/17/18 12/17/18 12/17/18 15:15 15:27 15:27 WBC RBC Hgb Hct MCV MCH MCHC RDW Plt Count MPV Immature Gran % Neutrophils % Lymphocytes % Monocytes % Eosinophils % Basophils % Absolute Neutrophils Absolute Lymphocytes Absolute Monocytes Absolute Eosinophils Absolute Basophils Sodium Potassium Chloride Carbon Dioxide Anion Gap BUN Creatinine Estimated GFR/1.73 m2 Glucose Calcium Magnesium Total Bilirubin AST ALT Alkaline Phosphatase Troponin I Total Protein Albumin Urine Color Yellow Urine Clarity Clear Urine pH 6.0 Ur Specific [place] 1.020 Urine Protein Negative Urine Ketones 40 H Urine Blood Moderate H Urine Nitrite Negative Urine Bilirubin Negative Urine Urobilinogen 0.2 Ur Leukocyte Esterase Negative Urine RBC 20-50 H Urine WBC 3-5 Ur Epithelial Cells Few Urine Crystals Negative Urine Bacteria Negative Urine Casts 0-2 hyaline Urine Mucus Negative Ur Culture Indicated? No Urine Glucose Negative Salicylates Urine Opiates Screen Negative Urine Methadone Screen Negative Acetaminophen Ur Barbiturates Screen Negative Ur Tricyclics Screen Negative Ur Amphetamines Screen Negative U Benzodiazepines Scrn Negative Urine Cocaine Screen Negative Ur THC Screen Positive Ethyl Alcohol < 3.0 Last Vital Signs Temp 36.8 C 12/17/18 17:08 Pulse 88 12/17/18 17:08 Resp 18 12/17/18 17:08 BP 114/80 12/17/18 17:08 Pulse Ox 100 12/17/18 17:08
[2018-12-17] MEDS: POTASSIUM CHLORIDE/0.9% NACL 1,000 ML 125 MEQ IV (19:18)
[2018-12-17 20:18] LABS: Troponin I < 0.02 ng/mL (0.00-0.06)
[2018-12-17] MEDS: LORazepam 0.5 MG TAB PO (22:21)
[2018-12-17] MEDS: Acetaminophen 500 MG TAB 1000 MG PO (22:22)
[2018-12-18] VITALS (10 sets, daily range): BP systolic 124–138; BP diastolic 75–85; PULSE 62–78; RESP 16–20; TEMP 36.7–37; O2SAT 96–99
[2018-12-18 00:33] LABS: Troponin I < 0.02 ng/mL (0.00-0.06)
[2018-12-18] MEDS: traMADol 50 MG TAB PO ×4 (03:23→21:10)
[2018-12-18 07:00] LABS: HCT 39.2 % (36.0-46.0); HGB 13.2 g/dL (12.0-15.5); Mean Corp. HGB Concentration 33.7 g/dL (32.0-36.0); Mean Corpuscular Hemoglobin 31.2 pg (27.0-33.0); Mean Corpuscular Volume 92.7 fL (80-95); Mean Platelet Volume 10.1 fL (8.0-11.0); Platelet Count 215 x1000/uL (130-400); RBC 4.23 m/cumm (4.00-5.20); White Blood Cell Count 6.42 k/cumm (4.4-10.8)
[2018-12-18 07:04] LABS: ALT 15 U/L (12-78); AST 11 U/L (15-37); Alkaline Phosphatase 85 U/L (46-116); Anion Gap 9.6 mmol/L (3-11); BUN 8 mg/dL (7-18); Bilirubin, Total 0.3 mg/dL (0.2-1.0); CO2 23.4 mmol/L (21.0-32.0); CREATININE 0.71 mg/dL (0.55-1.02); Calcium 8.6 mg/dL (8.5-10.1); Chloride 107 mmol/L (98-107); Creatine Kinase 66 U/L (26-192); Glucose 88 mg/dL (70-100); Potassium 3.8 mmol/L (3.5-5.1); Sodium 140 mmol/L (136-145); Total Protein 6.5 g/dL (6.4-8.2)
[2018-12-18] MEDS: Gabapentin 300 MG CAP PO ×3 (08:05→19:28)
[2018-12-18] MEDS: Pantoprazole 40 MG TABCR PO (08:05)
[2018-12-18] MEDS: Aspirin 81 MG CHEW PO (08:06)
[2018-12-18] MEDS: Acetaminophen 500 MG TAB 1000 MG PO ×2 (08:06→14:22)
[2018-12-18] MEDS: amLODIPine 5 MG TAB PO (08:06)
[2018-12-18] MEDS: Nicotine 21 MG/24 HR PATCH TD (08:37)
[2018-12-18] MEDS: POTASSIUM CHLORIDE/0.9% NACL 1,000 ML 125 MEQ IV ×2 (09:46→18:10)
--- NOTE | 2018-12-18 12:11 | PT.INIE ---
Date of service: 12/18/18 Time of Service: 11:30 PT Notes Inpatient Physical Therapy Evaluation Date: 12/18/18 Referring Doctor: Dr. Springer PT Orders: PT CONSULT: eval/treat Precautions: fall, standard Patient Profile/Admitting Diagnosis: Patient admitted 12/17/2018 from the emergency room, after being found unconscious by her roommate. She presented with altered mental status, left hemiparesis, and complaints of recent 40 pound weight loss. She had extensive work-up, with CVA ruled out, and working diagnosis of migraine equivalent. PMHX: Degenerative disc disease of the cervical spine; cervical stenosis; thoracic scoliosis with nerve root impingement at T6-7, T7-8. Patient reports h/o traumatic injury to left shoulder, with history of clavicle fracture (status post ORIF) and what sounds to be a rotator cuff tear. She also has chronic left knee pain without surgical history. Social History/Home Situation: Patient lives in a private home with a roommate. She states that her home is fully handicapped accessible. She does have stairs to her bedroom, although has a chair lift that she can use when necessary. 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 States that she is actively looking for work at this time. She does not perform any regular exercise regimen, although states that she is very active with her garden. Equipment Owned/DME: Patient does not utilize an assistive device at baseline. Lives in a handicap accessible home Subjective: Virgie states that she is feeling a bit better. She feels as though she is getting some of her strength back. She is anxious to get up and walking, and is hopeful that she can leave the hospital as soon as possible. She reports that she has had episodes similar to this in the past, with symptoms typically lasting about 3 days. She states that this time felt worse in terms of the amount of weakness and her loss of consciousness Objective: General Observation: Patient is resting in chair at initiation of session. She has an IV in the RUE. No additional lines. Mental Status: A and O x3. Patient initially demonstrates mild signs of agitation, with limited eye contact and short responses to direct questions. By end of session she is more easily conversant. Pain: Chronic left shoulder and left knee pain ROM: Right Upper Extremity: Shoulder flexion 175 degrees. Shoulder external rotation actively to 50 degrees. Elbow and wrist motion WFL. Left Upper Extremity: Active and active assisted left shoulder flexion allows 100 degrees, limited by pain. She demonstrates full functional internal rotation of the left shoulder. Active shoulder external rotation allows 50 degrees. Elbow and wrist motion WFL. Right Lower Extremity: WFL Left Lower Extremity: WFL Strength: Right Upper Extremity: Shoulder flexion 4+/5. Biceps 5/5. Triceps 5/5. Shoulder internal rotation 4+/5. Shoulder external rotation 4+/5. Left Upper Extremity: Shoulder flexion 3-/5. Biceps 4/5. Triceps 4/5. Shoulder internal rotation 4+/5. Shoulder external rotation 4+/5. Right Lower Extremity: Hip flexion 5/5. Quads 5/5. Ankle dorsiflexion 5/5. Left Lower Extremity: Hip flexion 5/5. Quads 4+/5. Ankle dorsiflexion 4/5. Bed Mobility/Transfers: Sit to stand: Supervision Stand to sit: Supervision Gait: Patient ambulates 300 feet without assistive device, CGA. She demonstrates mild ataxia, worsening with distance, with mild path deviation and occasional crossing of steps. Balance: Static Sitting: Normal Dynamic Sitting: Normal Static Standing: Good Dynamic Standing: Good Special Tests: Four position balance test shows 4/4 (0% deficit) Mobility Limitations Standardized Measure [facility] 6 clicks Basic Mobility Inpatient Short Form: Raw Score: 21 CMS Score: 29% deficit Informed Consent/Education: Patient instructed in purpose of PT consult and plan of care. Patient was instructed in a therapeutic exercise program, as noted in flow sheet. She was instructed in seated transverse abdominal activation with addition of dynamic movement patterns within her pain tolerance. She is also instructed in independent exercise program for completion between PT sessions, including seated March, L AQ, ankle pumps. Assessment: Patient is a 63 year old female referred to physical therapy services with the diagnosis of eval/treat. Patient presents with clinical signs and symptoms consistent with altered gait and diminished balance resulting from her acute medical issues. She is continuing to undergo medical work-up, and will benefit from skilled PT intervention during her acute care stay in order to maximize safety and independence prior to returning home. Patient does have chronic issues with her left shoulder left knee and back, and would likely benefit from outpatient PT upon discharge; we discussed this extensively today and patient will consider her options. She currently demonstrates the following impairment level findings: 1. Decreased left upper extremity range of motion 2. Gait impairments, with mild ataxia 3. Chronic back pain 4. Decreased left upper extremity strength 5. Decreased left lower Impairments are contributing to the following functional limitations: 1. Increased fall risk 2. Gait impairments 3. Poorly managed chronic pain Patient is assessed as Moderate 50614 complexity based on the following: History: 63-year-old female being seen in acute care setting after a loss of consciousness at home with residual left upper and lower extremity weakness. Currently presenting with mild ataxia and definitive weakness, although in the presence of multiple chronic musculoskeletal issues. Examination: Functional limitations as noted above Presentation: Evolving, with patient currently undergoing extensive medical work-up Decision Making: Moderate complexity Goals: Goals X1 week 1. Supine-Sit : independent 2. Sit-Supine : independent 3. Sit-Stand : independent 4. Stand-Sit : independent 5. Bed-Chair : independent 6. Chair-Bed : independent 7. Gait: independent x 300' 8. Stairs : supervision x 5 steps with bilat rail Plan of Care/Treatment Plan: 1-2x/day, 7 days/week x 1 week. Plan of care has been reviewed with the CAKE PRESS OPERATOR HELPER providing the service under Physical Therapy direction. Initiate Physical Therapy intervention for strengthening, bed mobility, transfers, gait, stairs, balance training, use of assistive device. DISCHARGE RECOMMENDATIONS: Home with out anticipated equipment needs. Patient has been strongly encouraged to consider outpatient physical therapy for management of her chronic musculoskeletal issues. TREATMENT CODE/TIME: 11:30-12:05 ([id number]) Jennifer Ogden PT, DPT [facility]
--- NOTE | 2018-12-18 12:30 | IN_ITS ---
Date of service: 12/18/18 Time of Service: 11:30 PT Notes Inpatient Physical Therapy Evaluation Date: 12/18/18 Referring Doctor: Dr. Springer PT Orders: PT CONSULT: eval/treat Precautions: fall, standard Patient Profile/Admitting Diagnosis: Patient admitted 12/17/2018 from the emergency room, after being found unconscious by her roommate. She presented with altered mental status, left hemiparesis, and complaints of recent 40 pound weight loss. She had extensive work-up, with CVA ruled out, and working diagnosis of migraine equivalent. PMHX: Degenerative disc disease of the cervical spine; cervical stenosis; thoracic scoliosis with nerve root impingement at T6-7, T7-8. Patient reports h/o traumatic injury to left shoulder, with history of clavicle fracture (status post ORIF) and what sounds to be a rotator cuff tear. She also has chronic left knee pain without surgical history. Social History/Home Situation: Patient lives in a private home with a roommate. She states that her home is fully handicapped accessible. She does have stairs to her bedroom, although has a chair lift that she can use when necessary. 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 States that she is actively looking for work at this time. She does not perform any regular exercise regimen, although states that she is very active with her garden. Equipment Owned/DME: Patient does not utilize an assistive device at baseline. Lives in a handicap accessible home Subjective: Virgie states that she is feeling a bit better. She feels as though she is getting some of her strength back. She is anxious to get up and walking, and is hopeful that she can leave the hospital as soon as possible. She reports that she has had episodes similar to this in the past, with symptoms typically lasting about 3 days. She states that this time felt worse in terms of the amount of weakness and her loss of consciousness Objective: General Observation: Patient is resting in chair at initiation of session. She has an IV in the RUE. No additional lines. Mental Status: A and O x3. Patient initially demonstrates mild signs of agitation, with limited eye contact and short responses to direct questions. By end of session she is more easily conversant. Pain: Chronic left shoulder and left knee pain ROM: Right Upper Extremity: Shoulder flexion 175 degrees. Shoulder external rotation actively to 50 degrees. Elbow and wrist motion WFL. Left Upper Extremity: Active and active assisted left shoulder flexion allows 100 degrees, limited by pain. She demonstrates full functional internal rotation of the left shoulder. Active shoulder external rotation allows 50 degrees. Elbow and wrist motion WFL. Right Lower Extremity: WFL Left Lower Extremity: WFL Strength: Right Upper Extremity: Shoulder flexion 4+/5. Biceps 5/5. Triceps 5/5. Shoulder internal rotation 4+/5. Shoulder external rotation 4+/5. Left Upper Extremity: Shoulder flexion 3-/5. Biceps 4/5. Triceps 4/5. Shoulder internal rotation 4+/5. Shoulder external rotation 4+/5. Right Lower Extremity: Hip flexion 5/5. Quads 5/5. Ankle dorsiflexion 5/5. Left Lower Extremity: Hip flexion 5/5. Quads 4+/5. Ankle dorsiflexion 4/5. Bed Mobility/Transfers: Sit to stand: Supervision Stand to sit: Supervision Gait: Patient ambulates 300 feet without assistive device, CGA. She demonstrates mild ataxia, worsening with distance, with mild path deviation and occasional crossing of steps. Balance: Static Sitting: Normal Dynamic Sitting: Normal Static Standing: Good Dynamic Standing: Good Special Tests: Four position balance test shows 4/4 (0% deficit) Mobility Limitations Standardized Measure [facility] 6 clicks Basic Mobility Inpatient Short Form: Raw Score: 21 CMS Score: 29% deficit Informed Consent/Education: Patient instructed in purpose of PT consult and plan of care. Patient was instructed in a therapeutic exercise program, as noted in flow sheet. She was instructed in seated transverse abdominal activation with addition of dynamic movement patterns within her pain tolerance. She is also instructed in independent exercise program for completion between PT sessions, including seated March, L AQ, ankle pumps. Assessment: Patient is a 63 year old female referred to physical therapy services with the diagnosis of eval/treat. Patient presents with clinical signs and symptoms consistent with altered gait and diminished balance resulting from her acute medical issues. She is continuing to undergo medical work-up, and will benefit from skilled PT intervention during her acute care stay in order to maximize safety and independence prior to returning home. Patient does have chronic issues with her left shoulder left knee and back, and would likely benefit from outpatient PT upon discharge; we discussed this extensively today and patient will consider her options. She currently demonstrates the following impairment level findings: 1. Decreased left upper extremity range of motion 2. Gait impairments, with mild ataxia 3. Chronic back pain 4. Decreased left upper extremity strength 5. Decreased left lower Impairments are contributing to the following functional limitations: 1. Increased fall risk 2. Gait impairments 3. Poorly managed chronic pain Patient is assessed as Moderate 62553 complexity based on the following: History: 63-year-old female being seen in acute care setting after a loss of consciousness at home with residual left upper and lower extremity weakness. Currently presenting with mild ataxia and definitive weakness, although in the presence of multiple chronic musculoskeletal issues. Examination: Functional limitations as noted above Presentation: Evolving, with patient currently undergoing extensive medical work-up Decision Making: Moderate complexity Goals: Goals X1 week 1. Supine-Sit : independent 2. Sit-Supine : independent 3. Sit-Stand : independent 4. Stand-Sit : independent 5. Bed-Chair : independent 6. Chair-Bed : independent 7. Gait: independent x 300' 8. Stairs : supervision x 5 steps with bilat rail Plan of Care/Treatment Plan: 1-2x/day, 7 days/week x 1 week. Plan of care has been reviewed with the SERVICE ORDER EXPEDITER providing the service under Physical Therapy direction. Initiate Physical Therapy intervention for strengthening, bed mobility, transfers, gait, stairs, balance training, use of assistive device. DISCHARGE RECOMMENDATIONS: Home with out anticipated equipment needs. Patient has been strongly encouraged to consider outpatient physical therapy for management of her chronic musculoskeletal issues. TREATMENT CODE/TIME: 11:30-12:05 ([id number]) Jennifer Ogden PT, DPT [facility]
--- NOTE | 2018-12-18 14:11 | PGE_ITS ---
Date of Service Date of service: 12/18/18 Time of Service: 14:09 Assessment and Plan (1) Acute left hemiparesis: Current visit: Yes Status: Resolved Ddx: atypical migraine (patient has a history thereof) with post-ictal state, TIA, sz. Doubt conversion d/o. EEG is being obtained. Planned for MRI/MRA brain tomorrow, US of carotids, echo. Neurology consulted. asa + statin until more information is available. Continue to monitor on tele. (2) Encephalopathy acute: Current visit: Yes Status: Resolved ?post-ictal state. EEG ordered. Neuro consult tomorrow. Monitor on tele. (3) GERD (gastroesophageal reflux disease): Current visit: No Status: Chronic PPI. Possible explanation of chronic nausea. (4) Tobacco abuse: Current visit: No Status: Chronic provide nicotine replacement (5) Hyperlipidemia: Current visit: No Status: Chronic check fasting lipid panel. (6) Unintentional weight loss: Current visit: Yes Status: Acute Seems to be driven by nausea, causing decreased PO intake. Malignancy workup as outpatient. As the patient is on chronic pain meds (ultram), will start bowel regimen. (7) Chronic pain: Current visit: Yes Status: Chronic as above. [facility] records reviewed. She was supposed to have an MRI of thoracic and lumbar spine as outpatient. She didn't get them done because she did not think she could lay flat for 3 hours. I feel that the patient should still get these tests as outpatient, but possibly on two different occasions. (8) Discharge planning issues: Current visit: Yes Status: Acute Full code. Likely discharge home tomorrow. (9) DVT prophylaxis: Current visit: Yes Status: Acute TEDs + SCDs - avoid chemical DVT ppx due to risks of hemorrhagic conversion of CVA, if indeed TIA/CVA. Subjective Interval history since last seen: Ms Wall states that she is nearly at her baseline. She had a headache this morning (linear in the center - top of her head to the front). This has now resolved. Her LUE weakness has resolved. She complains of back pain and requests tramadol. She denies dizziness, chest pain, shortness of breath, abdominal pain. Reports nausea for 6 months - she does not think it's reflux. She states that's the reason why she lost 50 lbs in 6 months. She now recalls feeling nauseated and going to the bathroom thinking she might vomit prior to waking up at the hospital. Exam Narrative Exam Narrative: General: very pleasant middle-aged female, sitting in a chair, appears nervous, A&Ox3 Neuro: no neuro deficits appreciated. CN II - XII incact, intact strength BUE/BLE. Limited ROM L shoulder (chronic). HEENT: EOMI, MMM Heart: RRR, no m/r/g Lungs: CTAB GI: abdomen is soft, nontender, nondistended Extremities: no e/c/c BLE's, 5/5 strength throughout Objective Objective Clinical Data: Abnormal lab results 12/17/18 12/17/18 12/17/18 Range/Units 15:15 15:15 15:27 Potassium 3.4 L (3.5-5.1) mmol/L Anion Gap 13.5 H (3-11) mmol/L Glucose 116 H (70-100) mg/dL AST 14 L (15-37) U/L Albumin (3.4-5.0) g/dL Urine Ketones 40 H (Negative) mg/dL Urine Blood Moderate H (Negative) Urine RBC 20-50 H (0-2) Acetaminophen < 2 L (10-30) ug/mL 12/18/18 Range/Units 06:15 Potassium (3.5-5.1) mmol/L Anion Gap (3-11) mmol/L Glucose (70-100) mg/dL AST 11 L (15-37) U/L Albumin 3.0 L (3.4-5.0) g/dL Urine Ketones (Negative) mg/dL Urine Blood (Negative) Urine RBC (0-2) Acetaminophen (10-30) ug/mL Vital Signs Temperature 36.9 C 12/18/18 10:55 Temperature Source Tympanic 12/18/18 10:55 Pulse 62 12/18/18 10:55 Pulse Rhythm Regular 12/18/18 09:11 Pulse 84 12/17/18 15:50 Respiratory Rate 20 12/18/18 10:55 Respiratory Effort Non-Labored 12/18/18 09:11 Respiratory Depth Normal 12/18/18 09:11 Respiratory Pattern Normal 12/18/18 09:11 Blood Pressure 138/84 12/18/18 10:55 Blood Pressure Mean 96 12/17/18 15:46 Blood Pressure Position Supine 12/17/18 15:02 Pulse Oximetry 99 12/18/18 10:55 Oxygen Delivery Method Room Air 12/18/18 10:55 Oxygen Flow Rate 0 12/18/18 10:55 Pain Level 4 12/18/18 09:06 Comment 12/17/18 18:38 Intake & Output 12/17/18 12/18/18 12/18/18 23:59 11:59 23:59 Intake Total 240 / 240 1306.25 / 1316.25 131. Output Total 1000 / 1000 1475 / 1475 Balance -760 / -760 -168.75 / -158.75 10 / -158.75 Weight 62.8 kg 59.1 kg Intake: IV 906.25 / 916.25 . Oral 240 / 240 400 / 400 Output: Urine 1000 / 1000 1475 / 1475 Other: Urine Color Yellow Yellow Yellow Urine Appearance Clear Clear Clear Urine Odor Normal Comment pt voided in toilet; not measured. first void since sanchez removal Voiding Methods Toilet Laboratory Results WBC 6.42 k/cumm (4.4-10.8) 12/18/18 06:15 RBC 4.23 m/cumm (4.00-5.20) 12/18/18 06:15 Hgb 13.2 g/dL (12.0-15.5) 12/18/18 06:15 Hct 39.2 % (36.0-46.0) 12/18/18 06:15 MCV 92.7 fL (80-95) 12/18/18 06:15 MCH 31.2 pg (27.0-33.0) 12/18/18 06:15 MCHC 33.7 g/dL (32.0-36.0) 12/18/18 06:15 RDW 13.0 % (11.7-14.6) 12/18/18 06:15 Plt Count 215 x1000/uL (130-400) 12/18/18 06:15 MPV 10.1 fL (8.0-11.0) 12/18/18 06:15 Immature Gran % 0.2 12/17/18 15:15 Neutrophils % 73.0 12/17/18 15:15 Lymphocytes % 18.1 12/17/18 15:15 Monocytes % 6.9 12/17/18 15:15 Eosinophils % 1.4 12/17/18 15:15 Basophils % 0.4 12/17/18 15:15 Absolute Neutrophils 6.17 k/cumm (1.2-6.7) 12/17/18 15:15 Absolute Lymphocytes 1.53 k/cumm (1.2-3.4) 12/17/18 15:15 Absolute Monocytes 0.58 k/cumm (0.11-0.7) 12/17/18 15:15 Absolute Eosinophils 0.12 k/cumm (0.0-0.7) 12/17/18 15:15 Absolute Basophils 0.03 k/cumm (0.0-0.2) 12/17/18 15:15 Sodium 140 mmol/L (136-145) 12/18/18 06:15 Potassium 3.8 mmol/L (3.5-5.1) 12/18/18 06:15 Chloride 107 mmol/L (98-107) 12/18/18 06:15 Carbon Dioxide 23.4 mmol/L (21.0-32.0) 12/18/18 06:15 Anion Gap 9.6 mmol/L (3-11) 12/18/18 06:15 BUN 8 mg/dL (7-18) D 12/18/18 06:15 Creatinine 0.71 mg/dL (0.55-1.02) 12/18/18 06:15 Estimated GFR/1.73 m2 >= 60.00 (mL/min/1.73m2) 12/18/18 06:15 Glucose 88 mg/dL (70-100) 12/18/18 06:15 Calcium 8.6 mg/dL (8.5-10.1) 12/18/18 06:15 Magnesium 2.3 mg/dL (1.8-2.4) 12/17/18 15:15 Total Bilirubin 0.3 mg/dL (0.2-1.0) 12/18/18 06:15 AST 11 U/L (15-37) L 12/18/18 06:15 ALT 15 U/L (12-78) 12/18/18 06:15 Alkaline Phosphatase 85 U/L (46-116) 12/18/18 06:15 Creatine Kinase 66 U/L (26-192) 12/18/18 06:15 Troponin I < 0.02 ng/mL (0.00-0.06) 12/17/18 23:47 Total Protein 6.5 g/dL (6.4-8.2) 12/18/18 06:15 Albumin 3.0 g/dL (3.4-5.0) L 12/18/18 06:15 TSH 0.90 uIU/mL (0.358-3.74) 12/17/18 19:44 Urine Color Yellow (Yellow) 12/17/18 15:27 Urine Clarity Clear 12/17/18 15:27 Urine pH 6.0 (5-8) 12/17/18 15:27 Ur Specific [place] 1.020 (1.005-1.025) 12/17/18 15:27 Urine Protein Negative mg/dL (Negative) 12/17/18 15:27 Urine Ketones 40 mg/dL (Negative) H 12/17/18 15:27 Urine Blood Moderate (Negative) H 12/17/18 15:27 Urine Nitrite Negative (Negative) 12/17/18 15:27 Urine Bilirubin Negative (Negative) 12/17/18 15:27 Urine Urobilinogen 0.2 EU/dL (Up TO 0.2) 12/17/18 15:27 Ur Leukocyte Esterase Negative (Negative) 12/17/18 15:27 Urine RBC 20-50 (0-2) H 12/17/18 15:27 Urine WBC 3-5 HPF (0-5) 12/17/18 15:27 Ur Epithelial Cells Few HPF (Negative) 12/17/18 15:27 Urine Crystals Negative HPF (Negative) 12/17/18 15:27 Urine Bacteria Negative HPF (Negative) 12/17/18 15:27 Urine Casts 0-2 hyaline LPF (Negative) 12/17/18 15:27 Urine Mucus Negative (Negative) 12/17/18 15:27 Ur Culture Indicated? No 12/17/18 15:27 Urine Glucose Negative mg/dL (Negative) 12/17/18 15:27 Salicylates 5.6 mg/dL (2.8-20.0) 12/17/18 15:15 Urine Opiates Screen Negative (Negative) 12/17/18 15:27 Urine Methadone Screen Negative (Negative) 12/17/18 15:27 Acetaminophen < 2 ug/mL (10-30) L 12/17/18 15:15 Ur Barbiturates Screen Negative (Negative) 12/17/18 15:27 Ur Tricyclics Screen Negative (Negative) 12/17/18 15:27 Ur Amphetamines Screen Negative (Negative) 12/17/18 15:27 U Benzodiazepines Scrn Negative (Negative) 12/17/18 15:27 Urine Cocaine Screen Negative (Negative) 12/17/18 15:27 Ur THC Screen Positive (Negative) 12/17/18 15:27 Ethyl Alcohol < 3.0 mg/dL (<3) 12/17/18 15:15
--- NOTE | 2018-12-18 14:56 | PDOC.CMIN ---
Care Management Initial Assess REASON FOR HOSPITALIZATION:: AMS PAST MEDICAL HISTORY/PAST SURGICAL HISTORY:: Hyperlipidemia, Migraine, Osteoarthritis, Tobacco abuse, cholecystectomy, EGD-MAC, hysterectomy with bilateral oophorectomy PREVIOUS FUNCTIONAL STATUS/SOCIAL/FAMILY SUPPORTS:: Virgie resides in [place], with a male roomate, she is . Her primary contact is her brother who resides nearby in [place], [place]. Virgie recently became unemployed and has increased stressors in her life. She has baseline depression, is generally independent with ADLs in the community. She had mowed the lawn and worked in her garden prior to admission. CURRENT FUNCTIONAL STATUS:: Virgie is lying in bed, working with an aide. She was permitted a one time order from the provider to enable her to shower and was preparing to do so. ADVANCE DIRECTIVES:: None on file. Has patient been provided with information about the portal?: Yes Did the patient sign up for the portal?: No CODE STATUS:: Full Code INSURANCE COVERAGE / FINANCIAL ISSUES:: [employer]. [employer] CURRENT HOME/COMMUNITY SERVICES/EQUIPMENT:: Raised toilet seat, grab bars, ramp, latasha lift device PRIMARY CARE PHYSICIAN:: Ailyn Barbosa POTENTIAL DISCHARGE NEEDS:: MRI, MRA, outpatient follow up plan. Possible order for psyche consult as well. PATIENT/FAMILY EDUCATION NEEDS:: Review of instructions, discuss Ask Me Three. ANTICIPATED BARRIERS TO DISCHARGE:: None identified. TRANSPORTATION:: Via private vehicle with family or friend. PLAN:: Virgie will have a work up per her presentation per MD, anticipate MRI/MRA. Virgie will likely discharge tomorrow with an outpatient follow up plan including her PCP. She will transport via private vehicle with family.
[2018-12-18] MEDS: Normal Saline Flush 10 ML SYR IVP (16:05)
[2018-12-18] MEDS: Docusate Sodium 100 MG CAP PO (19:28)
[2018-12-19] MEDS: POTASSIUM CHLORIDE/0.9% NACL 1,000 ML 125 MEQ IV ×2 (01:45→09:45)
[2018-12-19 03:35] VITALS: BP 123/82; PULSE 65; RESP 16; TEMP 36.4; O2SAT 96
[2018-12-19] MEDS: traMADol 50 MG TAB PO (04:41)
[2018-12-19 07:01] VITALS: PULSE 67
[2018-12-19 07:16] LABS: BUN 6 mg/dL (7-18); CREATININE 0.66 mg/dL (0.55-1.02); Calcium 8.6 mg/dL (8.5-10.1); Chloride 106 mmol/L (98-107); Cholesterol 201 mg/dL (50-200); Glucose 82 mg/dL (70-100); HDL Cholesterol 41 mg/dL (40-60); LDL CHOLESTEROL 128 mg/dL (<100); Magnesium 1.8 mg/dL (1.8-2.4); Sodium 140 mmol/L (136-145); Triglyceride 125 mg/dL (30-150)
[2018-12-19 07:20] VITALS: BP 145/93; PULSE 70; RESP 18; TEMP 37; O2SAT 97
[2018-12-19] MEDS: Docusate Sodium 100 MG CAP PO (07:43)
[2018-12-19] MEDS: Gabapentin 300 MG CAP PO ×2 (07:43→13:31)
[2018-12-19] MEDS: amLODIPine 5 MG TAB PO (07:43)
[2018-12-19] MEDS: Pantoprazole 40 MG TABCR PO (07:43)
[2018-12-19] MEDS: Aspirin 81 MG CHEW PO (07:43)
[2018-12-19] MEDS: Acetaminophen 500 MG TAB 1000 MG PO (07:55)
--- NOTE | 2018-12-19 08:00 | DI.US_ITS ---
SYMPTOMS/DIAGNOSIS: TRANSIENT NEUROLOGICAL DEFICIT BILATERAL DUPLEX CAROTID ULTRASOUND: Duplex evaluation of the carotid circulation was performed according to the usual protocol. There is little if any visible atheromatous plaque in the carotid circulation. Flow velocities in common internal and external carotid arteries are within normal limits bilaterally. There is bilateral antegrade vertebral flow. CONCLUSION: No evidence of a hemodynamically significant carotid stenosis.
[2018-12-19 08:08] LABS: Vitamin D 25 Total 24.9 ng/ml (30-100)
--- NOTE | 2018-12-19 08:35 | PDOC.EEG ---
EEG: [facility] Department of Neurology INPATIENT EEG REPORT Date of Recordin12/18/18 Interpreting Physician: Dr. Brionna Tracy Reason for study: Ms. Wall is a 63 year-old woman with a past medical history of migraines, hypertension, hyperlipidemia, and chronic low back pain on tramadol. She was admitted 12/17/2018 after she was found unresponsive by her roommate. Current Medications: Current Medications Acetaminophen (Tylenol) 1,000 mg PO Q6H PRN PRN Last Admin: 12/19/18 07:55 Dose: 1,000 mg Documented by: Al Hydrox/Mg Hydrox/Simethicone (Mylanta Liquid) 30 ml PO Q2H PRN PRN Amlodipine Besylate (Norvasc) 5 mg PO DAILY [facility] Last Admin: 12/19/18 07:43 Dose: 5 mg Documented by: Aspirin () 81 mg PO DAILY [facility] Last Admin: 12/19/18 07:43 Dose: 81 mg Documented by: Dimethicone/Zinc Oxide (Jayshree Protect Cream) 0 gm TP PRN PRN Docusate Sodium (Colace) 100 mg PO BID [facility] Last Admin: 12/19/18 07:43 Dose: 100 mg Documented by: Gabapentin (Neurontin) 300 mg PO TID [facility] Last Admin: 12/19/18 07:43 Dose: 300 mg Documented by: Potassium Chloride/Sodium Chloride (Kcl 20meq/Ns) 1,000 mls @ 125 mls/hr IV INFUSION [facility] Last Admin: 12/19/18 01:45 Dose: 125 mls/hr Documented by: IV Miscellaneous Supplies () 1 each IV DIRECTED [facility] Lorazepam (Ativan) 0.5 mg PO TID PRN PRN Last Admin: 12/17/18 22:21 Dose: 0.5 mg Documented by: Magnesium Hydroxide (Milk Of Magnesia) 30 ml PO DAILY PRN PRN Nicotine (Nicoderm Cq) 21 mg TD DAILY [facility] Last Admin: 12/18/18 08:37 Dose: 21 mg Documented by: Pantoprazole Sodium (Protonix) 40 mg PO 0730 [facility] Last Admin: 12/19/18 07:43 Dose: 40 mg Documented by: Pt's Own Cranberry (500mg Tablet) 1 each PO DAILY [facility] Last Admin: 12/19/18 07:44 Dose: Not Given Documented by: Polyethylene Glycol (Miralax) 17 gm PO DAILY PRN PRN PRN Reason: Constipation Promethazine HCl (Phenergan) 25 mg PO Q6H PRN PRN Sodium Chloride (Saline Flush 10 Ml Syringe) 0 ml IVP PRN PRN Last Admin: 12/18/18 16:05 Dose: 20 ml Documented by: Tramadol HCl (Ultram) 50 mg PO QID PRN PRN Last Admin: 12/19/18 04:41 Dose: 50 mg Documented by: METHODS: A 21 channel digitized electroencephalogram was performed in the [facility] Med/Surg Floor or ICU. The 10/20 international system of electrode placement was used and bipolar and referential electrode montages were recorded. In addition to EEG the patient was monitored for EKG and lateral/vertical eye movements. Activation procedures of photic stimulation and hyperventilation were performed if applicable. Video was used during activation procedures and during events where applicable. The duration of the recording was 30 minutes. DESCRIPTION OF EEG: The patient was noted to be awake, drowsy, and asleep during the recording. During maximal wakefulness a 10-Hz posterior background rhythm was present which was well-modulated, symmetrical, reactive to eye opening, and of moderate voltage. With eye opening the background activity changed to a low voltage mixture of alpha, beta, and occasional theta range frequencies. Faster frequencies were present in the bilateral anterior head regions. There was a normal anterior-posterior voltage gradient. During drowsiness, there was attenuation of the posterior dominant background rhythm and vertex waves. Stage II sleep was present with symmetrical sleep spindles, K-complexes, and vertex waves. During drowsiness, there were occasional, left > right, asynchronous, moderate-amplitude, temporal sharp-waves (F7/T3 and T4/F8). These were not clearly epileptiform. Activating Procedures: Photic stimulation was performed which produced a symmetrical posterior driving response at various flash frequencies. Hyperventilation was not performed. EKG: EKG revealed normal sinus rhythm. INTERPRETATION: This EEG is normal during the awake and sleep states as well as during photic stimulation. During drowsiness, there were occasional, left > right, temporal sharp-waves (F7/T3 and T4/F8). These were not clearly epileptiform. PRIOR EEG: none CLINICAL CORRELATION: No focal regions of cerebral dysfunction or definite epileptiform activity was present. Epilepsy remains a clinical diagnosis and a normal EEG does not rule out epilepsy. Clinical correlation is advised. Brionna Tracy MD
--- NOTE | 2018-12-19 08:38 | PDOC.EEG_ITS ---
EEG: [facility] Department of Neurology INPATIENT EEG REPORT Date of Recordin12/18/18 Interpreting Physician: Dr. Brionna Tracy Reason for study: Ms. Wall is a 63 year-old woman with a past medical history of migraines, hypertension, hyperlipidemia, and chronic low back pain on tramadol. She was admitted 12/17/2018 after she was found unresponsive by her roommate. Current Medications: Current Medications Acetaminophen (Tylenol) 1,000 mg PO Q6H PRN PRN Last Admin: 12/19/18 07:55 Dose: 1,000 mg Documented by: Al Hydrox/Mg Hydrox/Simethicone (Mylanta Liquid) 30 ml PO Q2H PRN PRN Amlodipine Besylate (Norvasc) 5 mg PO DAILY [facility] Last Admin: 12/19/18 07:43 Dose: 5 mg Documented by: Aspirin () 81 mg PO DAILY [facility] Last Admin: 12/19/18 07:43 Dose: 81 mg Documented by: Dimethicone/Zinc Oxide (Jayshree Protect Cream) 0 gm TP PRN PRN Docusate Sodium (Colace) 100 mg PO BID [facility] Last Admin: 12/19/18 07:43 Dose: 100 mg Documented by: Gabapentin (Neurontin) 300 mg PO TID [facility] Last Admin: 12/19/18 07:43 Dose: 300 mg Documented by: Potassium Chloride/Sodium Chloride (Kcl 20meq/Ns) 1,000 mls @ 125 mls/hr IV INFUSION [facility] Last Admin: 12/19/18 01:45 Dose: 125 mls/hr Documented by: IV Miscellaneous Supplies () 1 each IV DIRECTED [facility] Lorazepam (Ativan) 0.5 mg PO TID PRN PRN Last Admin: 12/17/18 22:21 Dose: 0.5 mg Documented by: Magnesium Hydroxide (Milk Of Magnesia) 30 ml PO DAILY PRN PRN Nicotine (Nicoderm Cq) 21 mg TD DAILY [facility] Last Admin: 12/18/18 08:37 Dose: 21 mg Documented by: Pantoprazole Sodium (Protonix) 40 mg PO 0730 [facility] Last Admin: 12/19/18 07:43 Dose: 40 mg Documented by: Pt's Own Cranberry (500mg Tablet) 1 each PO DAILY [facility] Last Admin: 12/19/18 07:44 Dose: Not Given Documented by: Polyethylene Glycol (Miralax) 17 gm PO DAILY PRN PRN PRN Reason: Constipation Promethazine HCl (Phenergan) 25 mg PO Q6H PRN PRN Sodium Chloride (Saline Flush 10 Ml Syringe) 0 ml IVP PRN PRN Last Admin: 12/18/18 16:05 Dose: 20 ml Documented by: Tramadol HCl (Ultram) 50 mg PO QID PRN PRN Last Admin: 12/19/18 04:41 Dose: 50 mg Documented by: METHODS: A 21 channel digitized electroencephalogram was performed in the [facility] Med/Surg Floor or ICU. The 10/20 international system of electrode placement was used and bipolar and referential electrode montages were recorded. In addition to EEG the patient was monitored for EKG and lateral/vertical eye movements. Activation procedures of photic stimulation and hyperventilation were performed if applicable. Video was used during activation procedures and during events where applicable. The duration of the recording was 30 minutes. DESCRIPTION OF EEG: The patient was noted to be awake, drowsy, and asleep during the recording. During maximal wakefulness a 10-Hz posterior background rhythm was present which was well-modulated, symmetrical, reactive to eye opening, and of moderate voltage. With eye opening the background activity changed to a low voltage mixture of alpha, beta, and occasional theta range frequencies. Faster frequencies were present in the bilateral anterior head regions. There was a normal anterior-posterior voltage gradient. During drowsiness, there was attenuation of the posterior dominant background rhythm and vertex waves. Stage II sleep was present with symmetrical sleep spindles, K-complexes, and vertex waves. During drowsiness, there were occasional, left > right, asynchronous, moderate- amplitude, temporal sharp-waves (F7/T3 and T4/F8). These were not clearly epileptiform. Activating Procedures: Photic stimulation was performed which produced a symmetrical posterior driving response at various flash frequencies. Hyperventilation was not performed. EKG: EKG revealed normal sinus rhythm. INTERPRETATION: This EEG is normal during the awake and sleep states as well as during photic stimulation. During drowsiness, there were occasional, left > right, temporal sharp-waves (F7/T3 and T4/F8). These were not clearly epileptiform. PRIOR EEG: none CLINICAL CORRELATION: No focal regions of cerebral dysfunction or definite epileptiform activity was present. Epilepsy remains a clinical diagnosis and a normal EEG does not rule out epilepsy. Clinical correlation is advised. Brionna Tracy MD
[2018-12-19 09:09] LABS: Vitamin B12 184 pg/mL (193-986)
--- NOTE | 2018-12-19 10:52 | MERGE_ITS ---
*[facility]* *[facility]* [address] [place] [address] Date of study: 12/19/2018 Transthoracic Echocardiography M-mode, complete 2D, complete spectral Doppler, and color Doppler *STUDY CONCLUSIONS* Summary: 1. Left ventricle: The cavity size was normal. Systolic function was hyperdynamic. The estimated ejection fraction was 65-70%. Diastolic parameters were normal. There was no evidence of elevated ventricular filling pressure by Doppler parameters. 2. Mitral valve: There was mild regurgitation. 3. Right ventricle: The cavity size was normal. Wall thickness was normal. Systolic function was normal. 4. Atrial septum: No defect or patent foramen ovale was identified. 5. Pulmonary arteries: Pulmonary systolic pressure was in the range of 20mm Hg to 30mm Hg. 6. Inferior vena cava: The vessel was normal in size. The respirophasic diameter changes were in the normal range (greater than or equal to 50%), consistent with normal central venous pressure. *PATIENT PRESENTATION* Height: 170.2cm ((67in) ) S/D Pressure: 145 / 93 Weight: 59kg ((129.7lb) ) BSA: 1.67m^2 Test start time: 10:52 AM. Test stop time: 11:45 AM. PERFORMING Unknown CONSULTING Ailyn Barbosa PERFORMING [facility] CREATIVE DIRECTOR Alka Castanon Yelena A REFERRING Kogan, Yelena A *PROCEDURE DATA* Procedure information: This study was interpreted by [facility]. Pertinent images and digital data are archived for permanent storage and are available for subsequent review. No prior study was available for comparison. Study status: Routine. Transthoracic echocardiography. M-mode, complete 2D, complete spectral Doppler, and color Doppler. A Transthoracic Echocardiogram was performed. Scanning was performed from the parasternal, apical, subcostal, and suprasternal notch acoustic windows. Images were obtained using an [employer] sc 2000 cardiac ultrasound machine. Image quality was good. Study completion: The patient tolerated the procedure well. History: PMH: Transient Neurological deficit. *CARDIAC ANATOMY* Left ventricle: The cavity size was normal. Systolic function was hyperdynamic. The estimated ejection fraction was 65-70%. The tissue Doppler parameters were normal. Diastolic parameters were normal. There was no evidence of elevated ventricular filling pressure by Doppler parameters. Aortic valve: Doppler: VTI ratio of LVOT to aortic valve: 0.7. Valve area (VTI): 2cm^2. Indexed valve area (VTI): 1.2cm^2/m^2. Peak velocity ratio of LVOT to aortic valve: 0.61. Valve area (Vmax): 1.7cm^2. Indexed valve area (Vmax): 1cm^2/m^2. Mean velocity ratio of LVOT to aortic valve: 0.6. Valve area (Vmean): 1.7cm^2. Indexed valve area (Vmean): 1cm^2/m^2. Mean gradient (S): 4.8mm Hg. Peak gradient (S): 9.3mm Hg. Mitral valve: Doppler: There was no evidence for stenosis. There was mild regurgitation. Valve area by pressure half-time: 3.9cm^2. Indexed valve area by pressure half-time: 2.3cm^2/m^2. Peak gradient (D): 3.6mm Hg. Left atrium: The atrium was normal in size. Atrial septum: No defect or patent foramen ovale was identified. Right ventricle: The cavity size was normal. Wall thickness was normal. Systolic function was normal. Pulmonic valve: Doppler: There was no evidence for stenosis. There was no significant regurgitation. Peak gradient (S): 2.9mm Hg. Tricuspid valve: Doppler: There was mild regurgitation. Pulmonary artery: Poorly visualized. Pulmonary systolic pressure was in the range of 20mm Hg to 30mm Hg. Right atrium: The atrium was normal in size. Pericardium: There was no pericardial effusion. Systemic veins: Inferior vena cava: The vessel was normal in size. The respirophasic diameter changes were in the normal range (greater than or equal to 50%), consistent with normal central venous pressure. Measurements Left ventricle Value Reference LV ID, ED, PLAX 3.9 cm 3.5 - 6.0 LV ID, ES, PLAX 2.5 cm 2.1 - 4.0 LV PW thickness, ED, PLAX 0.9 cm LV end-diastolic volume, 1-p A2C 67 ml LV ejection fraction, 1-p A2C 61 % LV end-diastolic volume, 1-p A4C 65 ml LV ejection fraction, 1-p A4C 59 % LV e', lateral 0.136 m/sec LV E/e', lateral 7 LV e', medial 0.079 m/sec LV E/e', medial 12 LV e', average 0.108 m/sec LV E/e', average 9 Ventricular septum Value Reference IVS thickness, ED, PLAX 0.9 cm LVOT Value Reference LVOT ID, A-P 1.9 cm LVOT area 2.8 cm^2 LVOT peak velocity, S 0.93 m/sec LVOT mean velocity, S 0.62 m/sec LVOT VTI, S 22.4 cm LVOT peak gradient, S 3.5 mm Hg LVOT mean gradient, S 1.8 mm Hg Stroke volume (SV), LVOT DP 63 ml Stroke index (SV/bsa), LVOT DP 38 ml/m^2 Aortic valve Value Reference Aortic valve peak velocity, S 1.5 m/sec Aortic valve mean velocity, S 1.04 m/sec Aortic valve VTI, S 32.0 cm Aortic mean gradient, S 4.8 mm Hg Aortic peak gradient, S 9.3 mm Hg VTI ratio, LVOT/AV 0.7 Aortic valve area, VTI 2 cm^2 Velocity ratio, peak, LVOT/AV 0.61 Aortic valve area, peak velocity 1.7 cm^2 Velocity ratio, mean, LVOT/AV 0.6 Aortic valve area, mean velocity 1.7 cm^2 Aortic valve area/bsa, mean velocity 1 cm^2/m^2 Aorta Value Reference Aortic root ID, ED 2.7 cm Ascending aorta ID, A-P, S 3.7 cm Left atrium Value Reference LA ID, A-P, ES 3.1 cm LA ID/bsa, A-P 1.9 cm/m^2 <=2.2 LA area, ES, A4C 14 cm^2 8.8 - 23.4 LA area, ES, A2C 17 cm^2 LA volume/bsa, S 26 ml/m^2 LA volume, ES, 2-p 41 ml LA volume/bsa, ES, 2-p 24 ml/m^2 LA/aortic root ratio 1.17 Mitral valve Value Reference Mitral E-wave peak velocity 0.95 m/sec Mitral A-wave peak velocity 0.72 m/sec Mitral deceleration time 196 ms 150 - 230 Mitral pressure half-time 57 ms Mitral peak gradient, D 3.6 mm Hg Mitral E/A ratio, peak 1.31 Mitral valve area, PHT, DP 3.9 cm^2 Tricuspid valve Value Reference Tricuspid regurg peak velocity 2.4 m/sec Tricuspid peak RV-RA gradient 23.6 mm Hg Right atrium Value Reference RA area, ES, A4C 12.4 cm^2 8.3 - 19.5 Pulmonic valve Value Reference Pulmonic peak gradient, S 2.9 mm Hg Legend: (L) and (H) lyndsay values outside specified reference range. I have personally reviewed the images and have reviewed and edited the reported findings. Electronically signed by Juan Fernandez MD 12/19/2018 18:09
--- NOTE | 2018-12-19 11:01 | INDS_ITS ---
Date of service: 12/19/18 Time of Service: 08:10 PT Notes Date: 12/19/18 Referring Doctor: Dr. Springer PT Orders: PT CONSULT: eval/treat Precautions: fall, standard Treatment Dates: 12/18/18 - 12/19/18 Patient Profile/Admitting Diagnosis: Patient admitted 12/17/2018 from the emergency room, after being found unconscious by her roommate. She presented with altered mental status, left hemiparesis, and complaints of recent 40 pound weight loss. She had extensive work-up, with CVA ruled out, and working diagnosis of migraine equivalent. PMHX: Degenerative disc disease of the cervical spine; cervical stenosis; thoracic scoliosis with nerve root impingement at T6-7, T7-8. Patient reports h/o traumatic injury to left shoulder, with history of clavicle fracture (status post ORIF) and what sounds to be a rotator cuff tear. She also has chronic left knee pain without surgical history. Social History/Home Situation: Patient lives in a private home with a roommate. She states that her home is fully handicapped accessible. She does have stairs to her bedroom, although has a chair lift that she can use when necessary. 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 States that she is actively looking for work at this time. She does not perform any regular exercise regimen, although states that she is very active with her garden. Equipment Owned/DME: Patient does not utilize an assistive device at baseline. Lives in a handicap accessible home Subjective: Virgie states that she is feeling good. She's very anxious to return home. She'd like to be able to walk around on her own, stating that her knee feels better when she moves. Objective: General Observation: Patient is resting in chair at initiation of session. She has an IV in the RUE. No additional lines. Mental Status: A and O x3. Pain: Chronic left shoulder and left knee pain ROM: Right Upper Extremity: Shoulder flexion 175 degrees. Shoulder external rotation actively to 50 degrees. Elbow and wrist motion WFL. Left Upper Extremity: Active and active assisted left shoulder flexion allows 100 degrees, limited by pain. She demonstrates full functional internal rotation of the left shoulder. Active shoulder external rotation allows 50 degrees. Elbow and wrist motion WFL. Right Lower Extremity: WFL Left Lower Extremity: WFL Strength: Right Upper Extremity: Shoulder flexion 4+/5. Biceps 5/5. Triceps 5/5. Shoulder internal rotation 4+/5. Shoulder external rotation 4+/5. Left Upper Extremity: Shoulder flexion 3-/5. Biceps 4/5. Triceps 4/5. Shoulder internal rotation 4+/5. Shoulder external rotation 4+/5. Right Lower Extremity: Hip flexion 5/5. Quads 5/5. Ankle dorsiflexion 5/5. Left Lower Extremity: Hip flexion 5/5. Quads 4+/5. Ankle dorsiflexion 4/5. Bed Mobility/Transfers: Sit to stand: Independent Stand to sit: Independent Gait: Patient ambulates 600 feet without assistive device, Supervision only. No ataxia noted today, although moderate antalgia with increasing distance, with decreased stance time on the left as compared to the right. Patient was able to demonstrate effective management of IV pole, and good safety awareness with independent ambulation. Balance: Static Sitting: Normal Dynamic Sitting: Normal Static Standing: Normal Dynamic Standing: Good Special Tests: Four position balance test shows 4/4 (0% deficit) Mobility Limitations Standardized Measure [facility] 6 clicks Basic Mobility Inpatient Short Form: Raw Score: 24 CMS Score: 0% deficit Informed Consent/Education: Patient instructed in purpose of PT consult and plan of care. Patient was instructed in a therapeutic exercise program, as noted in flow sheet. She was cleared for independent ambulation in her room and in the halls, and nursing was notified to change. Assessment: Patient is a 63 year old female referred to physical therapy services with the diagnosis of eval/treat. Patient participated in skilled PT intervention for 2 sessions over the past two days, making excellent gains in independence and mobility. She is now functioning at baseline, and is appropriate for discharge from PT services in acute care setting. She has been encouraged to consider outpatient PT for management of her chronic musculoskeletal issues, which she will consider. Goals: Goals X1 week 1. Supine-Sit : independent (MET) 2. Sit-Supine : independent(MET) 3. Sit-Stand : independent(MET) 4. Stand-Sit : independent(MET) 5. Bed-Chair : independent(MET) 6. Chair-Bed : independent(MET) 7. Gait: independent x 300'(MET) 8. Stairs : supervision x 5 steps with bilat rail (not assessed) Plan of Care/Treatment Plan: D/C from PT in acute care setting. DISCHARGE RECOMMENDATIONS: Home with out anticipated equipment needs. Patient has been strongly encouraged to consider outpatient physical therapy for management of her chronic musculoskeletal issues. TREATMENT CODE/TIME: 8:10-8:40([id number]) Jennifer Ogden, PT, DPT [facility]
--- NOTE | 2018-12-19 11:12 | PDOC.CMDIS ---
LACE Index Scoring Tool - Questions: Length of Stay (in days): 2 Acuity (Admit via E.D.?): Yes E.D. Visits: 2 - Answers: Total Score: 7 Risk of Readmission: Low Risk Care Management Discharge Reason for Hospitalization: AMS Discharge Plan: Virgie will likely discharge home with an outpatient follow up plan. She will follow up with her PCP and plan of care as prescribed. She will transport via private vehicle with family. Patient/Family Education Needs: Review of discharge instructions, discuss Ask Me Three.
--- NOTE | 2018-12-19 12:00 | DI.MRI_ITS ---
SYMPTOMS/DIAGNOSIS: TRANSIENT NEUROLOGICAL DEFICITS MR ANGIOGRAM, LOWER BRULE OF TONY REGION: MR angiography of the region of the cahto of Tony was performed according to the usual protocol. The visualized internal carotid arteries appear intact with no evidence of aneurysm, dissection or stenosis. Middle cerebral arteries and major branches appear intact bilaterally. No evidence of aneurysm, dissection or stenosis. The anterior cerebral arteries are supplied from the left internal carotid artery with a prominent anterior communicating artery and absent or diminutive A1 segment on the right. Anterior cerebral arteries and major branches appear intact. Basilar artery appears unremarkable, as do the posterior cerebral arteries. No evidence of dissection, aneurysm or stenosis. CONCLUSION: Negative MR angiography, cahto of Tony region. BRAIN MRI: MRI examination of the brain was performed according to the usual protocol. There are changes of mild generalized cerebral atrophy. There are multiple focal areas of abnormal signal in periventricular white matter and the jay bilaterally, consistent with microvascular ischemic changes. No other focal signal abnormality identified in the brain. Diffusion weighted imaging shows no evidence of infarction. Susceptibility weighted imaging shows no evidence of intracranial hemorrhage. The orbital and temporal bone structures appear intact as visualized, as does the pituitary. CONCLUSION: Microvascular ischemic changes of white matter. No other significant findings.
[2018-12-19 12:10] VITALS: BP 142/89; PULSE 69; RESP 19; TEMP 37; O2SAT 96
--- NOTE | 2018-12-19 12:29 | CMDISCH_ITS ---
LACE Index Scoring Tool - Questions: Length of Stay (in days): 2 Acuity (Admit via E.D.?): Yes E.D. Visits: 2 - Answers: Total Score: 7 Risk of Readmission: Low Risk Care Management Discharge Reason for Hospitalization: AMS Discharge Plan: iVrgie will likely discharge home with an outpatient follow up plan. She will follow up with her PCP and plan of care as prescribed. She will transport via private vehicle with family. Patient/Family Education Needs: Review of discharge instructions, discuss Ask Me Three.
[2018-12-19] MEDS: Nicotine 21 MG/24 HR PATCH TD (12:56)
--- NOTE | 2018-12-19 15:24 | W.NEUROCONSU ---
Date of service: 12/19/18 Time of Service: 15:24 Assessment and Plan (1) Spell of altered consciousness: Current visit: Yes Status: Acute (2) Conversion disorder: Current visit: Yes Status: Suspected Ms. Wall is a 63-year-old, right-handed woman with a past medical history of hypertension, hyperlipidemia, cigarette smoking, and chronic low back pain. She was admitted after she was found unresponsive by her roommate at home. She was down for an unknown period of time, but less than 3 hours. She was witnessed to have intermittent asynchronous twitching not consistent with seizure activity. She regained alertness several hours after she was found down but complained of mild left hemiparesis, which has also now resolved. Her neurological exam was normal. She has had an extensive work-up including a brain MRI, EEG, cardiac monitoring, carotid ultrasound, echocardiogram, and laboratory work-up, all of which have been unremarkable. Her initial clinical symptoms could have been consistent with syncope +/- complicated migraine, however, the prolonged unresponsiveness of this event makes these not likely. Her clinical history was not consistent with seizure either. I agree with extended cardiac monitoring. Otherwise, conversion disorder remains on the differential diagnosis. I have no further recommendations. She should follow-up in the neurology clinic if she has any further events. DISCLAIMER: This note was created using [employer] voice recognition software. History of Present Illness Chief Complaint: spell Narrative: Handedness: right. HPI: Ms. Wall is a 63-year-old woman with a past medical history of hypertension, hyperlipidemia, chronic low back pain, migraine headaches, GERD, and cigarette smoking. On 12/17/2018, she woke up feeling generally well. Between 10 and 11 AM, she went outside to perform yard work. At some point, she developed nausea. This is not unusual for her as she notes chronic nausea which she attributes to her spine disease. However, she was also dizzy. She describes the dizziness as both a lightheadedness and vertigo. She went inside to the bathroom and the next thing she knows is she is waking up in the hospital. She was found unresponsive next to the toilet by her roommate around 2 PM and subsequently brought to the [facility] emergency room. Her fingerstick blood sugar was in the 130s, her systolic blood pressure was in the 100s, and she had no response to Narcan. In the emergency room she was found to be generally unresponsive, with eyelid fluttering, and some tremulous movements. The ER physician noted that these tended to wax and wane and involve different extremities. He did not think that they were consistent with seizure. However, he gave her Ativan with no change in her symptoms. Further work-up included a CT head which I was able to review and was unremarkable. Her EKG was also unremarkable. Laboratory studies were significant for normal CK, negative UA, and negative urine tox screen. As the day went on, the ER physician noted some purposeful movements, however, she remained generally unresponsive. At some point on 12/17/18, she became responsive. Today, she tells me that she can recall being completely paralyzed on the left side of her body with ongoing seizures on the right side of her body. She does not know how long these lasted for because she was unresponsive. However, upon gaining consciousness, she reports ongoing severe left hemiparesis and right seizure activity for another hour with gradual improvement of her left hemiparesis over 24 hours. Her son Austin agrees. She is currently asymptomatic. She denies any type of headache during this time. She has no prior history of loss of consciousness or seizures. She has a previous history of a head injury at age 15 when she fell off a horse and suffered a skull fracture with loss of consciousness. She has no family history of seizures that she is aware of. She has no prior history of meningitis or encephalitis. She reports a baseline chronic mild left hemiparesis. She has reported to other providers worsening left hemiparesis with previous migraine headaches. Recent stressors include the loss of her job in September. Further work-up has included a CT of the C-spine which was significant for a right thyroid nodule. She underwent an MRI/MRA of the head today which I was able to review. There are no acute findings. She has moderate chronic white matter disease changes. She underwent an EEG which showed occasional left greater than right temporal sharps during drowsiness only. These were not clearly epileptiform. Sleep was obtained. She also underwent a TTE and a carotid ultrasound. These were unremarkable. Consults Requesting physician: Nola Springer Review of Systems Review of Systems All systems reviewed & are unremarkable except as noted in HPI and below [facility] Medical History Hypertension (Chronic) Chronic pain (Chronic) Cancer (Suspected) Hyperlipidemia Migraine Osteoarthritis Tobacco abuse Surgical History H/O surgical procedure (Acute 08/22/14) History of hysterectomy with bilateral oophorectomy (Resolved) Cholecystectomy (12/01/17) EGD - MAC (11/24/17) Social History Smoking/Tobacco Use Status: Current every day Alcohol Intake: current Alcohol Intake frequency: holidays/special occasions only Drug use: Occasionally Substance use type: marijuana Household members: other Number of Children: 1 current occupation: DIRECTOR OF [employer] Do you feel safe in your relationship?: Yes Visit Medication and Allergies Active Medications Generic Name Dose Route Start Last Admin Trade Name Freq PRN Reason Stop Dose Admin Acetaminophen 1,000 mg 12/18/18 14:11 12/19/18 07:55 Tylenol PO 1,000 mg Q6H PRN PRN Administration Al Hydrox/Mg Hydrox/Simethicone 30 ml 12/17/18 17:31 Mylanta Liquid PO Q2H PRN PRN Amlodipine Besylate 5 mg 12/18/18 08:30 12/19/18 07:43 Norvasc PO 5 mg DAILY FAZAL Administration Aspirin 81 mg 12/18/18 08:30 12/19/18 07:43 PO 81 mg DAILY FAZAL Administration Calcium Citrate 950 mg 12/20/18 08:30 Citracal PO DAILY [facility] Cholecalciferol 2,000 units 12/20/18 08:30 Vitamin D PO DAILY [facility] Cyanocobalamin 1,000 mcg 12/19/18 15:30 Vitamin B-12 IM/SC TODAY FAZAL Cyanocobalamin 1,000 mcg 12/20/18 08:30 Vitamin B-12 PO DAILY FAZAL Dimethicone/Zinc Oxide 0 gm 12/17/18 17:25 Jayshree Protect Cream TP PRN PRN Docusate Sodium 100 mg 12/18/18 20:00 12/19/18 07:43 Colace PO 100 mg BID FAZAL Administration Gabapentin 300 mg 12/18/18 08:30 12/19/18 13:31 Neurontin PO 300 mg TID FAZAL Administration Potassium Chloride/Sodium Chloride 1,000 mls @ 125 mls/hr 12/17/18 17:45 12/19/18 14:35 Kcl 20meq/Ns IV 125 mls/hr INFUSION FAZAL Infusion IV Miscellaneous Supplies 1 each 12/17/18 15:15 IV DIRECTED FAZAL Lorazepam 0.5 mg 12/17/18 21:37 12/17/18 22:21 Ativan PO 0.5 mg TID PRN PRN Administration Magnesium Hydroxide 30 ml 12/17/18 17:31 Milk Of Magnesia PO DAILY PRN PRN Nicotine 21 mg 12/18/18 08:30 12/19/18 12:56 Nicoderm Cq TD 21 mg DAILY FAZAL Administration Pantoprazole Sodium 40 mg 12/18/18 07:30 12/19/18 07:43 Protonix PO 40 mg 0730 FAZAL Administration Pt's Own Cranberry 1 each 12/19/18 08:30 12/19/18 07:44 500mg Tablet PO Not Given DAILY FAZAL Polyethylene Glycol 17 gm 12/17/18 17:31 Miralax PO DAILY PRN PRN Constipation Promethazine HCl 25 mg 12/18/18 08:20 Phenergan PO Q6H PRN PRN Sodium Chloride 0 ml 12/17/18 15:01 12/18/18 16:05 Saline Flush 10 Ml Syringe IVP 20 ml PRN PRN Administration Tramadol HCl 50 mg 12/18/18 14:11 12/19/18 04:41 Ultram PO 50 mg QID PRN PRN Administration Allergies Penicillins Allergy (Unverified 12/25/17 18:51) severe rash, anaphylaxis sumatriptan [From Imitrex] Allergy (Unverified 12/25/17 18:51) chest pain Exam Narrative Exam Narrative: Physical Exam: Gen: Patient of apparent stated age, NAD Head and face: no facial or cranial abnormalities Neck: Supple, no meningismus, no occipital tenderness CV: + S1, S2, RRR, no murmur Resp: CTA B/L Abd: soft, nontender, nondistended Ext: No edema. No clubbing or cyanosis. No bony deformity. Neuro Exam: Language: fluency, naming, repetition, and comprehension intact; Mental Status: AAOx3, current events intact, fund of knowledge intact; Speech: no dysarthria Cranial nerves: Funduscopy: not performed CN II: visual meza intact CN III, IV, : extraocular movements intact, no nystagmus, pupils symmetric and reactive to light CN V: face sensation intact to LT and PP CN VII: no facial asymmetry noted CN VIII: hearing intact bilaterally CN IX, X: palate rises symmetrically CN XI: trapezius/SCM 5/5 bilaterally CN XII: protrudes tongue symmetrically Sensory: intact to LT, PP in all extremities Motor: bulk and tone intact. Fine motor movements intact bilaterally. No pronator drift. Strength 5/5 throughout including the deltoids, biceps, triceps, wrist extensors, hip flexors, knee flexors, knee extensors, ankle flexors, and ankle extensors. Reflexes: 2+ at the biceps, triceps, brachioradialis, patella, and achilles tendons bilaterally; toes down going bilaterally; Coordination: FTN and HTS intact bilaterally Gait: deferred Results Last Vital Signs Temp 37.0 C 12/19/18 07:20 Pulse 70 12/19/18 07:20 Resp 18 12/19/18 07:20 BP 145/93 H 12/19/18 07:20 Pulse Ox 97 12/19/18 07:20 Labs : 12/18/18 06:15 12/19/18 06:45 Laboratory Results - last 24 hr 12/19/18 12/19/18 06:45 06:45 Sodium 140 Potassium 4.0 Chloride 106 Carbon Dioxide 24.0 Anion Gap 10.0 BUN 6 L Creatinine 0.66 Estimated GFR/1.73 m2 >= 60.00 Glucose 82 Calcium 8.6 Magnesium 1.8 Triglycerides 125 Total Cholesterol 201 H LDL Cholesterol Direct 128 H HDL Cholesterol 41 Vitamin B12 184 L 25-OH Vitamin D Total 24.9 L
[2018-12-19 15:27] VITALS: PULSE 63
--- NOTE | 2018-12-19 15:56 | CHAPLAIN ---
I had a short visit with Virgie. She was waiting to talk with the neurologist and hoping to be discharged today. A friend or family member was with her. She was pleasant but did not seem to want to have more of a conversation.
--- NOTE | 2018-12-19 16:46 | W.PM.DS.N ---
Date of service: 12/19/18 Time of Service: 16:46 DS: Diagnosis Discharge Diagnosis (1) Conversion disorder: Status: Suspected (2) Acute left hemiparesis: Status: Resolved (3) Encephalopathy acute: Status: Resolved (4) GERD (gastroesophageal reflux disease): Status: Chronic (5) Tobacco abuse: Status: Chronic (6) Hyperlipidemia: Status: Chronic (7) Unintentional weight loss: Status: Acute (8) Chronic pain: Status: Chronic (9) Hemiplegic migraine: Status: Resolved Asessment and Plan: history of (10) Vitamin B12 deficiency: Status: Chronic (11) Vitamin D deficiency: Status: Chronic (12) Hypokalemia: Status: Resolved Discharge Plan Disposition Patient Disposition: HOME Condition: Stable Discharge Details Reason For Visit: AMS Admit Date/Time: 12/17/18 17:26 Admit Provider: Alfredo Phillips Attending Provider: Alfredo Phillips Primary Care Provider: Ailyn Barbosa [facility] Course Hospital Course: Ms Wall is a 63 year old female with PMHx of chronic pain, GERD, chronic nausea, OA, tobacco abuse and hemiplegic migraine, observed on [facility] hospitalist service from 12/17/18 through 12/19/18 for episode of prolonged unresponsiveness. The patient was found unresponsive in her bathroom, did not respond to narcan. While the original event was not witness, when the patient was found, per patient and son, she had right-sided seizures and her left-side was paralized. LUE weakness was appreciated in the ED. This resolved by 24 hours from the original incident. The patient had a prolonged period of unresponsiveness in the ED, but now states she could hear what was going on around her and feel the sternal rub. The patient underwent CT head (negative), carotid Ultrasound (negative), MRI brain, showing microvascular chronic ischemic changes, but no acute signficant findings, MRA brain (negative) and echo (pending at the time of discharge). The patient also had an EEG, negative for epileptiform activity. She was evaluated by neurology - Dr Tracy felt that the description of patient's symptoms did not fit any one category. It was unlikely to have been a seizure (negative CPK, atypical presentation); atypical migraine would not have resulted in unresponsiveness and neither would a TIA. Syncope is still possible, but would not be followed by a prolonged period of unresponsiveness in the presence of normal vital signs. Intoxication is unlikely. It is felt that the patient likely has conversion disorder. She is recommended to be discharged home with a cardiac event recorder and not to drive until cleared by PCP. She may follow up with neurology if the PCP feels that follow up is necessary - it is not strongly felt so at the time of discharge. As far as her chronic nausea, a referral to GI as outpatient is recommended, if it has not be pursued already. Home Meds and New Rx's Prescriptions: New cyanocobalamin (vitamin B-12) [Vitamin B-12] 500 mcg Tablet 1,000 mcg PO DAILY Qty: 0 RF: 0 nicotine 21 mg/24 hr Patch 24 Hour 21 mg Transdermal DAILY Qty: 0 RF: 0 calcium citrate [Calcitrate] 200 mg (950 mg) Tablet 950 mg PO DAILY Qty: 0 RF: 0 cholecalciferol (vitamin D3) 1,000 unit Tablet 2,000 units PO DAILY Qty: 0 RF: 0 Continued Colace 50 MG capsule 50 mg PO BID PRNRF: 0 senna 8.6 MG capsule 8.6 mg PO BID PRNRF: 0 tramadol 50 MG tablet 50 mg PO TID PRN PRNQty: 20 RF: 0 propranolol 20 MG tablet 20 mg PO BID RF: 0 pantoprazole [Protonix] 40 mg Tablet,Delayed Release (Dr/Ec) 40 mg PO DAILY AM RF: 0 amlodipine 5 mg Tablet 5 mg PO DAILY RF: 0 gabapentin 300 mg Capsule 300 mg PO TID RF: 0 cranberry extract 500 MG tablet 500 mg PO DAILY RF: 0 promethazine 25 MG tablet 25 mg PO Q6H PRNQty: 15 RF: 2 Discontinued oxycodone 5 MG tablet 5 mg PO Q6H PRN PRN (Reason: Pain) Qty: 15 RF: 0 Discharge Instructions Instructions: Syncope (DC) Additional Instructions: You should not drive until cleared by PCP. You should stop smoking. Return to the hospital with any fever, bleeding, chest pain, shortness of breath, or fainting. Stand Alone Forms: Nursing Discharge Form Referrals: Ailyn Barbosa [Primary Care Provider] - Activity:: You should not drive Equipment/Supplies:: No Equipment Needed Diet:: As Tolerated Discharge Orders Discharge Orders: Discharge Order (Routine); Ordered 12/19/18 Ordered By: Nola Springer Other Ambulatory Orders: Cardiac Event Recorder (Outpt) (ONCE) Location: Determined by Patient Ordered By: Nola Springer Exam Narrative Exam Narrative: General: very pleasant middle-aged female, sitting in a chair, appears nervous, A&Ox3 Neuro: no neuro deficits appreciated. CN II - XII incact, intact strength BUE/BLE. Limited ROM L shoulder (chronic). HEENT: EOMI, MMM Heart: RRR, no m/r/g Lungs: CTAB GI: abdomen is soft, nontender, nondistended Extremities: no e/c/c BLE's, 5/5 strength throughout DS: Data Vitals/I&O Vitals and I&O: Vital Signs Temperature 37.0 C 12/19/18 12:10 Temperature Source Tympanic 12/19/18 12:10 Pulse 63 12/19/18 15:27 Pulse Rhythm Regular 12/19/18 07:35 Pulse 84 12/17/18 15:50 Respiratory Rate 19 12/19/18 12:10 Respiratory Effort Non-Labored 12/19/18 07:35 Respiratory Depth Normal 12/19/18 07:35 Respiratory Pattern Normal 12/19/18 07:35 Blood Pressure 142/89 H 12/19/18 12:10 Blood Pressure Mean 96 12/17/18 15:46 Blood Pressure Position Supine 12/17/18 15:02 Pulse Oximetry 96 12/19/18 12:10 Oxygen Delivery Method Room Air 12/19/18 12:10 Oxygen Flow Rate 0 12/19/18 12:10 Pain Level 1 12/19/18 12:10 Comment 12/17/18 18:38 Intake & Output 12/18/18 12/19/18 12/19/18 23:59 11:59 23:59 Intake Total 1630 / 2936.25 1979.167 / 2354.584 375.417 / 2353.584 Output Total 300 / 300 Balance 1630 / 1461.25 1679.167 / 2053.584 375.417 / 2053.584 Weight 61.2 kg Intake: IV 1010 / 1916.25 1979.167 / 4.584 135.417 / 2113.584 Oral 620 / 1020 240 / 240 Output: Urine 300 / 300 Other: Urine Color Pale Yellow Urine Appearance Clear Clear Urine Odor None None Comment pt voided in toilet; not measured. first void since sanchez removal up at [place] to void in toilet Voiding Methods Toilet Toilet Toilet Completed studies during hospitalization [Text1]: CXR 12/17/18: No evidence of acute disease. CT head 12/17/18: No evidence of acute intracranial process. CT spine 12/17/18: No evidence of acute cervical injury. XR LP pelvis 12/17/18: A single AP view of the pelvis was obtained. A single view is not adequate to exclude fracture but no fracture is identified on this film. Presumed old deformity of left iliac wing noted, this appears to have been present on previous CT of 07/15/18. US carotid 12/19/18: No evidence of a hemodynamically significant carotid stenosis. MR brain 12/19/18: Microvascular ischemic changes of white matter. No other significant findings. MRA brain 12/19/18: Negative MR angiography, [place] region. Pending studies at discharge: Echo Labs on day of discharge: Labs from last 24 hours 12/19/18 12/19/18 06:45 06:45 Sodium 140 Potassium 4.0 Chloride 106 Carbon Dioxide 24.0 Anion Gap 10.0 BUN 6 L Creatinine 0.66 Estimated GFR/1.73 m2 >= 60.00 Glucose 82 Calcium 8.6 Magnesium 1.8 Triglycerides 125 Total Cholesterol 201 H LDL Cholesterol Direct 128 H HDL Cholesterol 41 Vitamin B12 184 L 25-OH Vitamin D Total 24.9 L PFSH Medical History Cancer (Suspected) Hyperlipidemia Migraine Osteoarthritis Tobacco abuse Surgical History History of hysterectomy with bilateral oophorectomy (Resolved) Cholecystectomy (12/01/17) EGD - MAC (11/24/17) Social History Smoking/Tobacco Use Status: Current every day Drug use: Never Do you feel safe in your relationship?: Yes
[2018-12-19 16:47] VITALS: BP 147/96; PULSE 69; RESP 18; TEMP 36.7; O2SAT 98
[2018-12-19] MEDS: Cyanocobalamin 1000 MCG/ML VIAL IM/SC (17:53)
--- NOTE | 2019-01-23 11:49 | CER_ITS ---
DATE OF DICTATION: January 23, 2019 [facility] CARDIAC EVENT MONITOR REPORT REFERRING PHYSICIAN: Bao Porter M.D. DIAGNOSIS: Syncope and collapse. ENROLLMENT: 12/19/2018 until 01/17/2019 FINDINGS: 1. Baseline sinus rhythm, 52-151 bpm, average 80 bpm. 2. Twenty manually-detected events: a. Seven events without reported symptoms: all sinus rhythm, one episode with single PVC. b. Thirteen events with reported symptoms (tired or fatigued, lightheadedness, chest pain or pressure, flutter or skipped beats, lightheadedness, dizziness): all sinus rhythm/sinus tachycardia, one episode with brief atrial run. 3. No significant arrhythmia detected, no atrial fibrillation. 4. No significant pauses or bradycardia.
== END 2018-12-19 18:00 | disposition home or self-care (01) ==
LOC: ER 17:46 → MS 18:29
PROVIDERS: Admitting Provider Family Medicine; Emergency Provider Physician Assistant; PCP Family Medicine; Visit Provider Internal Medicine
DX: G93.49 Other encephalopathy (principal); G81.94 Hemiplegia, unspecified affecting left nondominant side; F17.210 Nicotine dependence, cigarettes, uncomplicated; K21.9 Gastro-esophageal reflux disease without esophagitis; E78.5 Hyperlipidemia, unspecified; R63.4 Abnormal weight loss; G89.29 Other chronic pain; Z56.0 Unemployment, unspecified; I34.0 Nonrheumatic mitral (valve) insufficiency; I10 Essential (primary) hypertension
CPT/HCPCS: 36415; 36416; 51702; 70544; 80048; 80053; 80061; 80307; 82306; 82550; 82962; 83721; 85027; 93005; 93270; 95819; 97110; 97162; 97530; 99217; 99220; 99225; 99255; 99285; 70450; 70551; 71046; 72125; 72170; 74177; 80320; 80329; 81003; 81015; 82607; 83735; 84443; 84484; 85025; 93010; 93306; 93880; G0378; J2060; J3420

== ENCOUNTER 2019-07-26 22:32 | Outpatient (REF) | payer MEDICAID, SELFPAY ==
[2019-07-26 22:33] LABS: Abs Immature Grans 0.01 k/cumm (0.0-0.09); Absolute Basophil Count 0.03 k/cumm (0.0-0.2); Absolute Eosinophil Count 0.26 k/cumm (0.0-0.7); Absolute Lymphocyte Count 2.13 k/cumm (1.2-3.4); Absolute Neutrophil Count 3.92 k/cumm (1.2-6.7); Basophils % 0.4; Eosinophils % 3.7; HCT 42.8 % (36.0-46.0); HGB 14.2 g/dL (12.0-15.5); Immature Grans % 0.1 %; Lymphocytes % 30.6; Mean Corp. HGB Concentration 33.2 g/dL (32.0-36.0); Mean Corpuscular Volume 93.4 fL (80-95); Mean Platelet Volume 10.7 fL (8.0-11.0); Monocytes % 8.6; Neutrophils % 56.6; Platelet Count 219 x1000/uL (130-400); RBC 4.58 m/cumm (4.00-5.20); White Blood Cell Count 6.95 k/cumm (4.4-10.8)
[2019-07-26 23:10] LABS: ALT 16 U/L (14-59); AST 17 U/L (15-37); Albumin 3.8 g/dL (3.4-5.0); Alkaline Phosphatase 82 U/L (46-116); Anion Gap 8.8 mmol/L (3-11); BUN 19 mg/dL (7-18); Bilirubin, Total 0.3 mg/dL (0.2-1.0); CO2 30.2 mmol/L (21.0-32.0); Calcium 9.2 mg/dL (8.5-10.1); Chloride 102 mmol/L (98-107); Glucose 74 mg/dL (74-106); Potassium 4.1 mmol/L (3.5-5.1); Sodium 141 mmol/L (136-145); Total Protein 7.1 g/dL (6.4-8.2); Vitamin B12 297 pg/mL (193-986)
[2019-07-27 05:27] LABS: Vitamin D 25 Total 56.3 ng/ml (30-100)
== END 2019-07-26 22:52 ==
LOC: NCHCN 22:32
PROVIDERS: PCP Family Medicine; Visit Provider Family Medicine
DX: R63.4 Abnormal weight loss (principal)
CPT/HCPCS: 80053; 82306; 82607; 85025

== ENCOUNTER 2021-03-19 14:34 | Outpatient (REF) | payer MEDICAID, SELFPAY ==
[2021-03-19 14:33] LABS: ALT 33 U/L (14-59); AST 17 U/L (15-37); Albumin 3.8 g/dL (3.4-5.0); Alkaline Phosphatase 144 U/L (46-116); Anion Gap 8.7 mmol/L (3-11); BUN 11 mg/dL (7-18); Bilirubin, Total 0.3 mg/dL (0.2-1.0); CO2 30.3 mmol/L (21.0-32.0); CREATININE 0.8 mg/dL (0.55-1.02); Calcium 9.6 mg/dL (8.5-10.1); Calculated LDL 175 mg/dL (<100); Chloride 106 mmol/L (98-107); Cholesterol 261 mg/dL (<200); Glucose 88 mg/dL (74-106); HDL Cholesterol 50 mg/dL (40-60); Potassium 4.8 mmol/L (3.5-5.1); Sodium 145 mmol/L (136-145); Total Protein 7.5 g/dL (6.4-8.2); Triglyceride 184 mg/dL (<150)
== END 2021-03-19 14:35 | disposition home or self-care (01) ==
LOC: NCHCN 14:34
PROVIDERS: PCP Family Medicine; Visit Provider Family Medicine
DX: I10 Essential (primary) hypertension (principal); E78.5 Hyperlipidemia, unspecified
CPT/HCPCS: 80053; 80061

== ENCOUNTER 2022-10-29 13:49 | Emergency (ER) | payer OTHER, SELFPAY ==
[2022-10-29 13:51] VITALS: BP 136/89; PULSE 72; RESP 16; TEMP 36.8; O2SAT 100
--- NOTE | 2022-10-29 14:42 | ED.GENADUL_ITS ---
Discharge Plan Disposition Patient Disposition: Home Discharge Details Clinical Impression: Nausea & vomiting Primary Care Provider: Ailyn Barbosa ED Provider: Rosie Meyer Home Meds and New Rx's Prescriptions: New prochlorperazine maleate [Compazine] 10 mg tablet 10 mg PO Q6H PRNQty: 14 0RF prochlorperazine maleate [Compazine] 10 mg tablet 10 mg PO Q6H PRNQty: 10 0RF Continued sennosides [senna] 8.6 mg tablet 8.6 mg PO BID hydrocortisone 2.5 % solution 1 applic TP DAILY PRN hydrocortisone 2.5 % cream 1 applic TP BID PRN acetaminophen [Tylenol Extra Strength] 500 mg tablet 500 mg PO BID PRN meloxicam 15 mg tablet 15 mg PO DAILY alprazolam 0.5 mg tablet 0.5 mg PO ONCE Rx Instructions: 1 tab before flying and 1 tab one later after if needed. calcium carbonate [Calcium 500] 500 mg calcium (1,250 mg) tablet 500 mg PO BID PreserVision AREDS [id number] abmc-nv-kqil capsule 1 cap PO BID cholecalciferol (vitamin D3) 25 mcg (1,000 unit) capsule 25 mcg PO DAILY meloxicam 15 mg tablet,disintegrating 15 mg PO BID Qty: 14 0RF tramadol 50 MG tablet 50 mg PO TID PRN PRNQty: 20 pantoprazole [Protonix] 40 mg Tablet,Delayed Release (Dr/Ec) 40 mg PO DAILY AM amlodipine 5 mg Tablet 5 mg PO DAILY Rx Instructions: amlodipine/besylate gabapentin 300 mg Capsule 300 mg PO TID cranberry extract 500 mg tablet 500 mg PO BID Discharge Instructions Instructions: Acute Nausea and Vomiting (ED) Additional Instructions: Take Compazine as needed for nausea and vomiting Liquids followed by bland diet as tolerated Increase your fluid hydration, Gatorade, juaquin mariaa Return earlier should you have fever, chills, abdominal pain, uncontrolled vomiting, decreased bowel movements Recommend reevaluation by your doctor tomorrow and recheck of your liver enzymes as they are slightly elevated within the next several weeks Referrals: Ailyn Barbosa [Primary Care Provider] - Discharge Data Discharge Date/Time-TO BE ENTERED AT DEPARTURE: 10/29/22 19:14 Medical Decision Making <Bertha Toribio NP - Last Filed: 11/03/22 16:09> 67-year-old female presents to the ER with a chief complaint of nausea vomiting diarrhea and fever for the last 3 days. She has been unable to take any of her medications. She does have a past medical history of conversion disorder, acute encephalopathy, GERD hyperlipidemia hypertension Work-up ordered including CBC CMP urinalysis Upon initial presentation patient is actively retching. CT abdomen pelvis ordered. Care is to be handed off to oncoming provider Rosie Meyer pending labs and CT. This text was generated using [employer] dictation system, please disregard any oddities of phrase or misspellings. LB: Care accepted in transfer from [facility], nurse practitioner pending CT abdomen and pelvis, CT shows evidence of dilated loops of bowel, concern for possible developing bowel obstruction although on reassessment, patient is marked markedly improved after fluids and antiemetics, she is able to tolerate p.o., she has intact bowel sounds abdomen nontender abdominal exam without distention She has been moving her bowels without difficulty Case is discussed with Dr. Mcnamara, surgery who recommends if there is any concern for bowel obstruction admission, however patient would like discharge home, she has no clinical signs or symptoms consistent with bowel obstruction at time of my assessment, she does prefer to be discharged home at this time will take Compazine as needed She will return immediately should she have any new or worsening complaints, these were reviewed in detail with patient She is discharged home in stable condition with stable vitals, tolerating p.o. with a Compazine prescription 0 <CHRISTIANO Fatima - Last Filed: 10/29/22 21:32> Work-up ordered including CBC CMP urinalysis LB: Care accepted in transfer from [facility], nurse practitioner pending CT abdomen and pelvis, CT shows evidence of dilated loops of bowel, concern for possible developing bowel obstruction although on reassessment, patient is marked markedly improved after fluids and antiemetics, she is able to tolerate p.o., she has intact bowel sounds abdomen nontender abdominal exam without distention She has been moving her bowels without difficulty Case is discussed with Dr. Mcnamara, surgery who recommends if there is any concern for bowel obstruction admission, however patient would like discharge home, she has no clinical signs or symptoms consistent with bowel obstruction at time of my assessment, she does prefer to be discharged home at this time will take Compazine as needed She will return immediately should she have any new or worsening complaints, these were reviewed in detail with patient She is discharged home in stable condition with stable vitals, tolerating p.o. with a Compazine prescription 0 HPI <Bertha Toribio NP - Last Filed: 11/03/22 16:09> General Mode of arrival: ambulatory . Date/Time Provider Initiated Documentation: 10/29/22 14:30 . Limitations to Documentation: no limitations . Information obtained by: patient, RN notes reviewed and old records reviewed . HPI Narrative: 67-year-old female presents to the ER with a chief complaint of nausea vomiting diarrhea and fever for the last 3 days. She has been unable to take any of her medications. She does have a past medical history of conversion disorder, acute encephalopathy, GERD hyperlipidemia hypertension Related Data Home Medications Medication Instructions Recorded Confirmed tramadol 50 mg tablet 50 mg PO TID PRN PRN #20 tabs 11/15/17 09/01/19 amlodipine 5 mg tablet 5 mg PO DAILY 12/17/18 09/01/19 gabapentin 300 mg capsule 300 mg PO TID 12/17/18 09/01/19 pantoprazole 40 mg tablet,delayed 40 mg PO DAILY AM 12/17/18 09/01/19 release (Protonix) cranberry extract 500 mg tablet 500 mg PO BID 01/09/19 09/01/19 hydrocortisone 2.5 % topical 1 applic topical DAILY PRN 01/09/19 09/01/19 solution sennosides 8.6 mg tablet (senna) 8.6 mg PO BID 02/15/19 09/01/19 acetaminophen 500 mg tablet 500 mg PO BID PRN 08/25/19 09/01/19 (Tylenol Extra Strength) alprazolam 0.5 mg tablet 0.5 mg PO ONCE 08/25/19 09/01/19 calcium carbonate 500 mg calcium 500 mg PO BID 08/25/19 09/01/19 (1,250 mg) tablet (Calcium 500) cholecalciferol (vitamin D3) 25 25 mcg PO DAILY 08/25/19 09/01/19 mcg (1,000 unit) capsule hydrocortisone 2.5 % topical cream 1 applic topical BID PRN 08/25/19 09/01/19 meloxicam 15 mg disintegrating 15 mg PO BID #14 tabs 08/25/19 09/01/19 tablet meloxicam 15 mg tablet 15 mg PO DAILY 08/25/19 09/01/19 vitamins A,C,Q-jrfr-kzkkst 4,296 1 cap PO BID 08/25/19 09/01/19 mcg-226 mg-90 mg capsule (PreserVision AREDS) prochlorperazine maleate 10 mg 10 mg PO Q6H PRN #10 tabs 10/29/22 tablet (Compazine) prochlorperazine maleate 10 mg 10 mg PO Q6H PRN #14 tabs 10/29/22 tablet (Compazine) Previous Rx's Medication Instructions Recorded meloxicam 15 mg disintegrating 15 mg PO BID #14 tabs 08/25/19 tablet prochlorperazine maleate 10 mg 10 mg PO Q6H PRN #10 tabs 10/29/22 tablet (Compazine) prochlorperazine maleate 10 mg 10 mg PO Q6H PRN #14 tabs 10/29/22 tablet (Compazine) Allergies Allergy/AdvReac Type Severity Reaction Status Date / Time acetaminophen Allergy Verified 09/01/19 13:27 [From Darvocet-N] hydrochlorothiazide Allergy Verified 09/01/19 13:27 lisinopril Allergy Verified 09/01/19 13:27 Penicillins Allergy severe Unverified 09/01/19 13:27 rash, anaphylaxis propoxyphene Allergy Verified 09/01/19 13:27 [From Darvocet-N] sumatriptan [From Imitrex] Allergy chest pain Unverified 09/01/19 13:27 General Stated Complaint: Nausea/Vomit/Diar TIMMY: 3 Review of Systems <Bertha Toribio NP - Last Filed: 11/03/22 16:09> All systems reviewed & are unremarkable except as noted in HPI and below Constitutional Constitutional: Reports body ache(s) and Reports fever(s) Cardiovascular Cardiovascular: Denies chest pain Gastrointestinal Gastrointestinal: Denies abdominal pain, Reports diarrhea, Reports nausea and Reports vomiting PFSH <Bertha Toribio NP - Last Filed: 11/03/22 16:09> All Active Problems (Updated 10/29/22 @ 18:36 by CHRISTIANO Fatima) Nausea & vomiting (Acute) Medical History Abdominal pain abdominopelvic pain (08/22/14) Acute left hemiparesis Altered mental state Cancer Patient suspects she has spinal cancer from recent imaging May 2018 without follow-through MRI, patient appears depressed with cancerophobia and fearing catastrophic disease Chronic pain Encephalopathy acute Episode of unresponsiveness Fibroid uterus (08/22/14) GERD (gastroesophageal reflux disease) Hyperlipidemia Hypertension Hypokalemia Migraine Patient often has left sided weakness associate with her headache which includes the entire left side Nausea Osteoarthritis Rt flank pain Tobacco abuse Unintentional weight loss Vitamin B12 deficiency Vitamin D deficiency Surgical History Cholecystectomy (12/01/17) EGD - MAC (01/2019) 11/2017- normal H/O surgical procedure (08/22/14) a. LAVH/BSO 08/22/2014 b. Left rotator cuff and collarbone surgery History of hysterectomy with bilateral oophorectomy 2014 Social History Smoking/Tobacco Use Status: Current every day Tobacco Type: cigarettes Smoking risk assessment performed?: Yes Alcohol Intake: current Alcohol Intake frequency: holidays/special occasions only Drug use: Occasionally Substance use type: marijuana Household members: other Number of Children: 1 current occupation: MANAGER [employer] Do you feel safe at home: Yes Do you feel safe in your relationship?: Yes Exam <Bertha Toribio NP - Last Filed: 11/03/22 16:09> Narrative Exam Narrative: Constitutional: Alert and oriented x3. Appears stated age. Normal body habitus. Head: Normocephalic, no trauma. Eyes: Pupils PERRL, Red reflex noted, EOM's intact. Eyelids symmetrical without lesions, discharge, or swelling. ENT: Bilateral TM's WNL, External ear normal to inspection, no mastoid TTP, swelling, or erythema, Nasal turbinates WNL, no nasal discharge. Normal dentition, Posterior pharynx WNL, no exudate. Chest: RRR, Normal S1, S2, distal pulses intact. Resp: Lungs clear to auscultation bilaterally, no wheezes, rales, or rhonchi. Abdomen: Soft, non-distended, Normoactive bowel sounds all 4 quads. Musculoskeletal: Normal gait, 5/5 strength to all four extremities. Skin: No suspicious rashes or lesions. Capillary refill less than 2 sec. Neurologic: Cranial nerves II-XII intact. Alert and oriented x 3. Motor: No deficits noted. Sensory: Intact bilaterally all 4 extremities. Reflexes: DTR's intact bilaterally.. Hematologic/Lymphatic: No ecchymosis, no lymphadenopathy. Course <Bertha Toribio NP - Last Filed: 11/03/22 16:09> Vital Signs Vital signs: Vital Signs Temperature 36.8 C 10/29/22 13:51 Pulse 72 10/29/22 13:51 Respiratory Rate 16 10/29/22 13:51 Blood Pressure 136/89 10/29/22 13:51 Pulse Oximetry 100 10/29/22 13:51 Temperature 36.8 C 10/29/22 13:51 Temperature Source Skin 10/29/22 13:51 Pulse 72 10/29/22 13:51 Respiratory Rate 16 10/29/22 13:51 Blood Pressure 136/89 10/29/22 13:51 Blood Pressure Position Sitting 10/29/22 13:51 Pulse Oximetry 100 10/29/22 13:51 Oxygen Delivery Method Room Air 10/29/22 13:51 Oxygen Flow Rate 0 10/29/22 13:51 Pain Level 10 10/29/22 13:51 Sign Out <Bertha Toribio NP - Last Filed: 11/03/22 16:09> Sign Out Data: Sign Out Comment: Pending CT abd Pelvis, here with N/V x 3 days, unable to keep meds down. Elevated transaminases. Last updated by Bertha Toribio NP at 10/29/22 15:53
[2022-10-29 14:48] LABS: Abs Immature Grans 0.02 10^3/uL (0.0-0.06); Absolute Basophil Count 0.04 10^3/uL (0.0-0.2); Absolute Eosinophil Count 0.01 10^3/uL (0.0-0.7); Absolute Lymphocyte Count 2.07 10^3/uL (1.2-3.4); Absolute Monocyte Count 0.35 10^3/uL (0.1-0.8); Basophils % 0.6; Eosinophils % 0.1; HCT 43.5 % (36.0-46.0); HGB 15.1 g/dL (11.2-15.7); Immature Grans % 0.3; Lymphocytes % 28.8; MCH 30.3 pg (27.0-33.0); MCHC 34.7 % (32.0-36.0); MCV 87 fL (80-95); MPV 9.5 fL (8.0-11.0); Monocytes % 4.9; Neutrophils % 65.3; Platelet Count 202 10^3/uL (130-400); RBC 4.99 10^6/uL (3.93-5.22); RDW 12.7 % (11.7-14.6); RDW-SD 40.2 fL; WBC 7.19 10^3/uL (4.4-10.8)
[2022-10-29 15:09] LABS: ALT 254 U/L (14-59); AST 112 U/L (15-37); Albumin 4.3 g/dL (3.4-5.0); Alkaline Phosphatase 136 U/L (46-116); Anion Gap 13.1 mmol/L (3-11); BUN 19 mg/dL (7-18); Bilirubin, Total 0.6 mg/dL (0.2-1.0); CO2 22.9 mmol/L (21.0-32.0); CREATININE 0.8 mg/dL (0.55-1.02); Calcium 9.9 mg/dL (8.5-10.1); Chloride 104 mmol/L (98-107); Estimated GFR 81.72 (mL/min/1.73m2); Glucose 97 mg/dL (74-106); Magnesium 2.2 mg/dL (1.8-2.4); Potassium 3.4 mmol/L (3.5-5.1); Sodium 140 mmol/L (136-145); Total Protein 8.2 g/dL (6.4-8.2)
--- NOTE | 2022-10-29 15:15 | DI.CT_ITS ---
Exam(s) CT ABDOMEN PELVIS W EXAM: CT ABDOMEN PELVIS W CLINICAL HISTORY: Nausea Vomiting x 3 days. TECHNIQUE: Imaging Protocol: Axial computed tomography images with coronal and sagittal reformatted images were created and reviewed CONTRAST MATERIAL: Intravenous: Omnipaque 350 Contrast volume:100 ml Oral: no FINDINGS: ABDOMEN: Lung Bases: Normal where visualized. Liver: Normal density. No measurable mass. Gallbladder and biliary tract: Status post cholecystectomy. Biliary dilatation, commonly seen post c holecystectomy. Pancreas: Normal density, no abnormal calcifications or inflammatory process. Spleen: Normal. Kidneys: Normal size, contour and axis. No radiodense stones or obstructive uropathy. No suspicious m asses seen. Adrenal glands: No masses seen. Abdominal Aorta: Abdominal portion non-dilated. Atherosclerotic changes. Soft tissues: Unremarkable. PELVIS: Bladder: Nearly empty. No gross wall thickening. No calculi.No gross focal mass. Bowel: Mildly dilated loops of small bowel in the right lower quadrant. No wall thickening or pneuma tosis. Moderate quantity of stool. Appendix normal. Peritoneal cavity: No ascites, collection or mesenteric inflammatory response. Bones: Degenerative changes and scoliosis. Nerve root sheath cysts in the upper sacrum. Reproductive organs: Status post hysterectomy. Lymph nodes: Unremarkable. Impression: Mildly dilated loops of small bowel right lower quadrant could represent early partial small bowel ob struction. Findings called to Rosie Meyer, emergency department provider. RADIATION DOSE DELIVERED: 699.5mGy.cm Total DLP DATA REPOSITORY: All CT scans at this facility are submitted to the National Radiology Data Registry (NRDR) Dose Index Registry (DIR) with the [employer] (ACR). RADIATION OPTIMIZATION: All CT scans at this facility use at least one of these dose optimization te chniques: automated exposure control; mA and/or kV adjustment per patient size (includes targeted exa ms where dose is matched to clinical indication); or iterative reconstruction.
[2022-10-29] MEDS: Normal Saline 1,000 ML 1000 ML IV (15:17)
[2022-10-29] MEDS: Ondansetron 4 MG/2 ML VIAL IVP (15:17)
[2022-10-29 15:22] LABS: Lipase 23 U/L (16-77)
--- NOTE | 2022-10-29 15:52 | NUR.NOTE ---
Nursing Note: Contacts to call: 1. Sofía Larios [phone] 2. Abi Mcmahan [phone]
[2022-10-29] MEDS: Normal Saline - Diluent 50 ML VIAL IJ (16:25)
[2022-10-29] MEDS: Omnipaque 350 MG/ML 100 ML BTL IJ (16:26)
[2022-10-29 16:27] LABS: Bilirubin Small (Negative); Blood Small (Negative); Clarity Sl Cloudy (Clear); Glucose Negative (Negative); Ketones >=160 mg/dL (Negative); Leukocyte Esterase Negative (Negative); Nitrite Negative (Negative); Specific Gravity >= 1.030 (1.005-1.025); Urobilinogen 0.2 mg/dL (Up to 0.2)
[2022-10-29] MEDS: Normal Saline Flush 10 ML SYR IVP (16:28)
[2022-10-29] MEDS: MORPHine 4 MG/ML SYR IVP (16:29)
[2022-10-29 16:35] LABS: Bacteria Negative HPF (Negative); C & S Indicated? No; Casts Negative LPF (Negative); Crystals Negative HPF (Negative); Epithelial Cells Few HPF (Negative); Mucus Negative (Negative); WBC 0-2 HPF (0-5)
[2022-10-29] MEDS: Prochlorperazine 10 MG/2 ML VIAL 5 MG IVP (17:29)
[2022-10-29] MEDS: Lactated Ringers 1,000 ML 1000 ML IV (17:31)
[2022-10-29] MEDS: Prochlorperazine 10 MG TAB PO (18:56)
[2022-10-29 19:06] VITALS: BP 140/72; PULSE 78; RESP 18; O2SAT 97
== END 2022-10-29 19:14 | disposition home or self-care (01) ==
PROVIDERS: Registered Nurse Emergency; Emergency Provider Physician Assistant; PCP Family Medicine
DX: R11.2 Nausea with vomiting, unspecified (principal); R19.7 Diarrhea, unspecified; R50.9 Fever, unspecified; I10 Essential (primary) hypertension
CPT/HCPCS: 80053; 83690; 96361; 96374; 96375; 99285; 74177; 81003; 81015; 83735; 85025; 99284; J0780; J2270; J2405; J3490

== ENCOUNTER 2022-11-13 01:23 | Outpatient (CLI) | payer OTHER, SELFPAY ==
[2022-11-13 14:55] LABS: Abs Immature Grans 0.01 10^3/uL (0.0-0.06); Absolute Basophil Count 0.05 10^3/uL (0.0-0.2); Absolute Lymphocyte Count 2.58 10^3/uL (1.2-3.4); Absolute Monocyte Count 0.45 10^3/uL (0.1-0.8); Absolute Neutrophil Count 3.11 10^3/uL (1.2-6.7); Basophils % 0.8; Eosinophils % 3.1; HCT 41.9 % (36.0-46.0); HGB 14.3 g/dL (11.2-15.7); Immature Grans % 0.2; Lymphocytes % 40.3; MCH 30.9 pg (27.0-33.0); MCHC 34.1 % (32.0-36.0); MCV 91 fL (80-95); MPV 9.5 fL (8.0-11.0); Neutrophils % 48.6; Platelet Count 242 10^3/uL (130-400); RBC 4.63 10^6/uL (3.93-5.22); RDW 13.2 % (11.7-14.6); RDW-SD 43.4 fL
[2022-11-13 15:38] LABS: ALT 18 U/L (14-59); AST 14 U/L (15-37); Albumin 3.8 g/dL (3.4-5.0); Alkaline Phosphatase 112 U/L (46-116); Anion Gap 7.5 mmol/L (3-11); BUN 12 mg/dL (7-18); Bilirubin, Total 0.4 mg/dL (0.2-1.0); CO2 27.5 mmol/L (21.0-32.0); CREATININE 0.9 mg/dL (0.55-1.02); Calcium 9.5 mg/dL (8.5-10.1); Chloride 103 mmol/L (98-107); Estimated GFR 70.95 (mL/min/1.73m2); Glucose 78 mg/dL (74-106); Lipase 163 U/L (16-77); Potassium 3.8 mmol/L (3.5-5.1); Sodium 138 mmol/L (136-145); Total Protein 7.9 g/dL (6.4-8.2)
[2022-11-13 15:51] LABS: Calculated LDL 188 mg/dL (<100); Cholesterol 276 mg/dL (<200); HDL Cholesterol 61 mg/dL (40-60); Triglyceride 137 mg/dL (<150)
== END 2022-11-13 01:24 | disposition home or self-care (01) ==
LOC: LBO 01:23
PROVIDERS: PCP Family Medicine; Visit Provider Family Medicine
DX: R79.89 Other specified abnormal findings of blood chemistry (principal)
CPT/HCPCS: 36415; 80053; 80061; 83690; 85025

== ENCOUNTER → 2023-03-29 16:33 | Outpatient (CLI) | payer OTHER, SELFPAY ==
--- NOTE | 2023-03-29 12:33 | DI.RAD_ITS ---
Exam(s) XR CHEST 2V PA LATERAL EXAM: XR CHEST 2V PA LATERAL CLINICAL HISTORY: COUGH R05.8. TECHNIQUE: 2D digital imaging was performed. COMPARISON: CR XR CHEST 2V PA LATERAL from 12/17/2018 FINDINGS: 2 views: Heart size is normal. The mediastinum is not widened. Right lung is clear. However, there is a concerning 2.0 x 1.9 cm nodular infiltrate in the left uppe r lobe. No associated pleural effusions. Fusion hardware plate in the left clavicle again noted. Widened AC joint on the left side again note d IMPRESSION: There is a concerning 2 cm nodular infiltrate in the left upper lobe. Suspicious for malignancy. CT scan recommended. No pleural effusions. DATA REPOSITORY: RADIATION DOSE DELIVERED:
== END ==
PROVIDERS: PCP Family Medicine; Visit Provider Nurse Practitioner Family
DX: R05.9 Cough, unspecified (principal); R91.8 Other nonspecific abnormal finding of lung field
CPT/HCPCS: 71046

== ENCOUNTER → 2023-04-05 02:21 | Outpatient (CLI) | payer OTHER, SELFPAY ==
--- NOTE | 2023-04-05 | DI.RAD_ITS ---
Exam(s) XR CHEST 2V PA LATERAL EXAM: XR CHEST 2V PA LATERAL CLINICAL HISTORY: PULMONARY INFILTRATE, R91.8,COUGH, R05.8 TECHNIQUE: 2D digital imaging was performed. COMPARISON: CR XR CHEST 2V PA LATERAL from 03/29/2023 FINDINGS: HEART: Normal size. Aorta: Mildly ectatic. PULMONARY VASCULATURE: Normal. LUNGS: Clear. Density in question in the left upper lobe prior exam appears to correspond to degen erative changes at the 1st costochondral junction. PLEURAL SPACE: No pleural effusion or pneumothorax. BONE:Hardware and left clavicle. IMPRESSION: No acute abnormality. DATA REPOSITORY: RADIATION DOSE DELIVERED:
== END ==
PROVIDERS: PCP Family Medicine; Visit Provider Nurse Practitioner Family
DX: R91.8 Other nonspecific abnormal finding of lung field (principal); R05.8 Other specified cough
CPT/HCPCS: 71046

== ENCOUNTER → 2023-04-30 03:00 | Outpatient (CLI) | payer OTHER, SELFPAY ==
--- NOTE | 2023-04-30 | DI.CT_ITS ---
Exam(s) CT CHEST W EXAM: CT CHEST W CLINICAL HISTORY: PULMONARY INFILTRATE R91.8 COUGH R05.8 TOBACCO USE Z72.0 TECHNIQUE: Imaging Protocol: Axial computed tomography images with coronal and sagittal reformatted images were created and reviewed CONTRAST MATERIAL: Intravenous: Omnipaque 350 Contrast volume:80 ml. COMPARISON: CR XR CHEST 2V PA LATERAL from 04/05/2023 FINDINGS: Pulmonary parenchyma: No consolidation. No dominant measurable mass. No pulmonary nodules. No groun d-glass infiltrates. Tracheobronchial tree: No bronchiectasis or mucous plugging. Mediastinum and Mervat: No dominant adenopathy or fluid collection. Pleura: No effusion. No pneumothorax. Heart: The heart is not dilated. Mild coronary artery calcifications are seen. Aorta: Ascending aorta dilated to 4.4 cm. No dissection. Mild atherosclerotic changes. Upper abdomen: Unremarkable. Status post cholecystectomy. Bones: Degenerative changes in the spine. Fixation plate in the left clavicle. Soft tissues: Unremarkable. IMPRESSION: No acute abnormality. Ascending aorta 4.4 cm. RADIATION DOSE DELIVERED: Total DLP DATA REPOSITORY: All CT scans at this facility are submitted to the National Radiology Data Registry (NRDR) Dose Index Registry (DIR) with the [employer] (ACR). RADIATION OPTIMIZATION: All CT scans at this facility use at least one of these dose optimization te chniques: automated exposure control; mA and/or kV adjustment per patient size (includes targeted exa ms where dose is matched to clinical indication); or iterative reconstruction.
[2023-04-30 14:26] LABS: Abs Immature Grans 0.01 10^3/uL (0.0-0.06); Absolute Basophil Count 0.05 10^3/uL (0.0-0.2); Absolute Eosinophil Count 0.27 10^3/uL (0.0-0.7); Absolute Lymphocyte Count 2.43 10^3/uL (1.2-3.4); Absolute Monocyte Count 0.46 10^3/uL (0.1-0.8); Absolute Neutrophil Count 2.81 10^3/uL (1.2-6.7); Basophils % 0.8; Eosinophils % 4.5; HGB 14.5 g/dL (11.2-15.7); Immature Grans % 0.2; Lymphocytes % 40.3; MCH 30.7 pg (27.0-33.0); MCHC 33.7 % (32.0-36.0); MCV 91 fL (80-95); MPV 9.3 fL (8.0-11.0); Monocytes % 7.6; Neutrophils % 46.6; Platelet Count 228 10^3/uL (130-400); RBC 4.72 10^6/uL (3.93-5.22); RDW 13.6 % (11.7-14.6); RDW-SD 46.6 fL; WBC 6.03 10^3/uL (4.4-10.8)
[2023-04-30 14:45] LABS: ALT 20 U/L (14-59); AST 18 U/L (15-37); Albumin 3.6 g/dL (3.4-5.0); Alkaline Phosphatase 121 U/L (46-116); Anion Gap 6.6 mmol/L (3-11); BUN 8 mg/dL (7-18); Bilirubin, Total 0.3 mg/dL (0.2-1.0); CO2 29.4 mmol/L (21.0-32.0); CREATININE 0.8 mg/dL (0.55-1.02); Calcium 9.1 mg/dL (8.5-10.1); Chloride 102 mmol/L (98-107); Estimated GFR 81.21 (mL/min/1.73m2); Glucose 77 mg/dL (74-106); Lipase 97 U/L (16-77); Potassium 3.4 mmol/L (3.5-5.1); Sodium 138 mmol/L (136-145); Total Protein 7.7 g/dL (6.4-8.2)
[2023-04-30] MEDS: Normal Saline - Diluent 50 ML VIAL IJ (14:52)
[2023-04-30] MEDS: Omnipaque 350 MG/ML 100 ML BTL 80 ML IJ (14:53)
[2023-04-30] MEDS: Normal Saline Flush 10 ML SYR IVP (14:54)
[2023-04-30 14:57] LABS: Calculated LDL 159 mg/dL (<100); Cholesterol 265 mg/dL (<200); HDL Cholesterol 60 mg/dL (40-60); Triglyceride 231 mg/dL (<150)
== END ==
PROVIDERS: PCP Family Medicine; Visit Provider Nurse Practitioner Family
DX: R91.8 Other nonspecific abnormal finding of lung field (principal); R05.8 Other specified cough; Z72.0 Tobacco use
CPT/HCPCS: 80053; 80061; 83690; 71260; 85025; J3490

== ENCOUNTER 2024-05-18 20:58 | Emergency (ER) | payer OTHER, SELFPAY ==
[2024-05-18] VITALS (28 sets, daily range): BP systolic 89–130; BP diastolic 52–91; PULSE 72–171; RESP 13–27; O2SAT 96–100
--- NOTE | 2024-05-18 20:45 | RT.EKG_ITS ---
APPROVED REPORT Exam: Resting ECG Reason for Exam: loc Patient Location: E HR:80 bpm ECG Measurements Heart Rate 80 AXIS GA 187 P 61 QRSd 82 QRS -24 QT 391 T 47 QTc 451 Conclusion Sinus rhythm, rate 80 No interval abnormalities No STEMI
--- NOTE | 2024-05-18 21:00 | DI.CT_ITS ---
Exam(s) CT HEAD WO EXAM: CT HEAD WO CLINICAL HISTORY: AMS, ? seizure. TECHNIQUE: Imaging Protocol: Axial computed tomography images with coronal and sagittal reformatted images were created and reviewed COMPARISON: No exams were available for comparison FINDINGS: Ventricles and Extra axial spaces: Normal in size and morphology for the patient's age. Hemorrhage: None. Cerebral parenchyma: No evidence of acute infarct or mass. Mild microvascular changes of the white matter. Midline shift: None. Brainstem/Cerebellum: Normal. Calvarium: Normal. Visualized Paranasal sinuses:Mucous retention in the left maxillary sinus. Mastoids: Clear. Soft Tissues: Unremarkable. ORBITS: Unremarkable. PITUITARY: Not enlarged. IMPRESSION: No acute intracranial process. RADIATION DOSE DELIVERED: 862.66mGy.cm Total DLP DATA REPOSITORY: All CT scans at this facility are submitted to the National Radiology Data Registry (NRDR) Dose Index Registry (DIR) with the [employer] (ACR). RADIATION OPTIMIZATION: All CT scans at this facility use at least one of these dose optimization te chniques: automated exposure control; mA and/or kV adjustment per patient size (includes targeted exa ms where dose is matched to clinical indication); or iterative reconstruction.
[2024-05-18] MEDS: Midazolam 5 MG/5 ML VIAL (21:06)
[2024-05-18 21:37] LABS: Abs Immature Grans 0.02 10^3/uL (0.0-0.06); Absolute Basophil Count 0.04 10^3/uL (0.0-0.2); Absolute Eosinophil Count 0.14 10^3/uL (0.0-0.7); Absolute Lymphocyte Count 1.48 10^3/uL (1.2-3.4); Absolute Monocyte Count 0.52 10^3/uL (0.1-0.8); Absolute Neutrophil Count 4.08 10^3/uL (1.2-6.7); Basophils % 0.6 %; Eosinophils % 2.2 %; HCT 37.7 % (36.0-46.0); HGB 12.8 g/dL (11.2-15.7); Immature Grans % 0.3 %; Lymphocytes % 23.6 %; MCH 30.9 pg (27.0-33.0); MCV 91 fL (80-95); MPV 9.4 fL (8.0-11.0); Monocytes % 8.3 %; Platelet Count 157 10^3/uL (130-400); RBC 4.14 10^6/uL (3.93-5.22); RDW 13.2 % (11.7-14.6); RDW-SD 43.8 fL; WBC 6.28 10^3/uL (4.4-10.8)
[2024-05-18 21:42] LABS: Bilirubin Negative (Negative); Blood Trace-intact (Negative); Clarity Clear (Clear); Glucose Negative (Negative); Ketones Trace mg/dL (Negative); Leukocyte Esterase Negative (Negative); Nitrite Negative (Negative); Specific Gravity 1.015 (1.005-1.025); Urobilinogen 0.2 mg/dL (Up to 0.2)
[2024-05-18] MEDS: levETIRAcetam 1,000 MG in Normal Saline 100 ML 400 MG IVPB (21:44)
[2024-05-18 21:46] LABS: Prothrombin Time 10.3 sec (9.1-11.1)
--- NOTE | 2024-05-18 21:49 | DI.VRAD_ITS ---
PROCEDURE INFORMATION: Exam: CT Head Without Contrast Exam date and time: 05/18/2024 9:10 PM Age: 70 years old Clinical indication: Altered mental status/memory loss; Additional info: AMS, ? seizure TECHNIQUE: Imaging protocol: Computed tomography of the head without contrast. COMPARISON: No relevant prior studies available. FINDINGS: Brain: Mild cerebral atrophy. Moderate periventricular white matter hypodensity. No edema or hemorrhage. Cerebral ventricles: No ventriculomegaly. Paranasal sinuses: Mild mucosal thickening throughout paranasal sinuses without air-fluid levels. Mastoid air cells: No mastoid effusion. Bones: No acute fracture. Soft tissues: No suspicious lesions. IMPRESSION: No acute intracranial findings. Atrophy and chronic small vessel ischemic changes. Dictated and Authenticated by: Melani Avila MD. Ordering:RADHIKA Devries MD
[2024-05-18 21:51] LABS: Bacteria Negative HPF (Negative); Crystals Negative HPF (Negative); Epithelial Cells Rare HPF (Negative); Mucus Negative (Negative)
[2024-05-18 21:52] LABS: C & S Indicated? No
[2024-05-18 21:53] LABS: WBC 0-2 HPF (0-5)
[2024-05-18 22:00] LABS: *AMPHETAMINES SCREEN URINE Negative (Negative); *BARBITURATES SCREEN URINE Negative (Negative); *BENZODIAZEPINES SCREEN URINE Positive (Negative); Cannabinoids THC Positive (Negative); Cocaine Screen,Urine Negative (Negative); METHADONE URINE SCREEN Negative (Negative); OPIATES URINE SCREEN Negative (Negative)
[2024-05-18 22:01] LABS: Tricyclic Antidepressants Negative (Negative)
[2024-05-18 22:08] LABS: Salicylate 3.9 mg/dL (<2.8)
--- NOTE | 2024-05-18 22:08 | W.ED.GENAD ---
Discharge Plan Discharge Details Chief Complaint: AMS/LOC Primary Care Provider: Ailyn Barbosa ED Provider: Brionna Varghese HPI General Mode of arrival: EMS. Date/Time Provider Initiated Documentation: 05/18/24 20:59. Limitations to Documentation: altered mental status. Information obtained by: family, EMS and old records reviewed. HPI Narrative: HPI: This is a 69-year-old female patient with a past medical history of hypertension, hyperlipidemia, migraine, brought in by EMS for altered mental status. Per EMS report, they arrived on scene to the patient's house, and family states that she had been sitting in her recliner and started to shake. The convulsive episode lasted until EMS arrived 28 minutes later. The patient has no reported seizure disorder, did not sustain trauma, family states that she had gone out and had smoked some marijuana, and had tea. She did have, on chart review, an episode similar to this with altered mental status, and had a full evaluation with MRI, EEG, and diagnosis was not clear, conversion disorder was questioned. On EMS arrival they were provided her with a dose of Ativan, with cessation of convulsive activity. She was hemodynamically appropriate that did not have a return to consciousness, follow commands. No trauma is reported by family, but family states that they are not sure of her entire medical story. 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 Exam: Gen: Unresponsive, localizes to painful stimuli but does not follow commands HEENT: Non-icteric sclera, pupils equal and reactive at 4 mm bilaterally Neck: Supple Lungs: No apparent respiratory distress, normal respiratory effort. Lung sounds are clear and equal bilaterally CV: Appears well perfused, heart with regular rate and rhythm, strong and symmetrical distal pulses Abdomen: Non-distended, soft, no apparent tenderness MSK: No external traumatic findings x 4 extremities, pelvis stable to AP compression Skin: Visualized skin without rashes, cyanosis. Neuro: Symmetrical facies, patient did begin to have rhythmic, slow tonic-clonic motion of her upper extremities during this provider's examination. She did not have any tongue biting or eye deviation. No clonus or rigidity. MDM: This is a 69-year-old female patient presenting for evaluation of altered mental status. My differential includes but is not limited to seizure, stroke, intracranial hemorrhage, toxic encephalopathy, subclinical status. Considered metabolic and electrolyte derangements, intracranial mass or mass effect, infectious encephalopathy, no evidence of meningismus or fever to suggest meningitis. I considered intoxication or toxic exposure, though the patient has no physical exam findings concerning for specific toxidromes. Finally, based on review of her prior episode, I did consider conversion disorder, PNES, and other differentials of exclusion. We will provide the patient with 5 mg of midazolam for her ongoing convulsive activity, which did stop the activity rapidly. Given the 2 episodes without a return to baseline, the potential for subclinical status epilepticus is present, and we have provided the patient with a weight-based loading dose of Keppra, 3500 mg. We will obtain a head CT, and laboratory studies to include CBC, CMP, troponin, serum tox, TSH, urine and urine tox. ED Course: I reviewed the patient's laboratory studies, which show no leukocytosis, anemia or thrombocytopenia. Coags normal, chemistry panel with mild hypokalemia which was repleted intravenously. No evidence of kidney dysfunction or liver disease, troponin negative, TSH within normal limits. Urinalysis with trace blood consistent with traumatic catheterization, no evidence of infectious findings. Serum tox screen negative, U tox positive for benzos (given prehospital he) as well as THC. Teleneuro evaluated the patient and recommended transfer to a facility that is capable of performing EEG. While awaiting placement, the patient did have an improvement in her mental status, was able to follow commands and answer simple questions. She reports that she has had an episode like this in the past, but is not sure what causes it and cannot think of any inciting events tonight. She remained within appropriate airway, hemodynamically appropriate. I signed out care of this patient to the oncoming provider prior to final disposition and call back by [facility]. General Stated Complaint: AMS/LOC TIMMY: 2 Course Vital Signs Vital signs: Vital Signs Pulse 76 05/18/24 20:56 Respiratory Rate 27 H 05/18/24 20:56 Pulse Oximetry 96 05/18/24 20:56 Pulse 73 05/18/24 21:46 Pulse 78 05/18/24 21:50 Respiratory Rate 17 05/18/24 21:50 Respiratory Effort Normal 05/18/24 21:00 Blood Pressure 98/73 L 05/18/24 21:46 Blood Pressure Mean 80 05/18/24 21:46 Pulse Oximetry 100 05/18/24 21:50 Respiratory End-tidal CO2 30 05/18/24 21:46 Lab/Test Results Lab/Test Results: Laboratory Tests Range/Units 05/18/24 05/18/24 21:25 21:31 WBC (4.4-10.8) 10^3/uL 6.28 RBC (3.93-5.22) 10^6/uL 4.14 Hgb (11.2-15.7) g/dL 12.8 Hct (36.0-46.0) % 37.7 MCV (80-95) fL 91 MCH (27.0-33.0) pg 30.9 MCHC (32.0-36.0) % 34.0 RDW (11.7-14.6) % 13.2 Plt Count (130-400) 10^3/uL 157 MPV (8.0-11.0) fL 9.4 Immature Gran % % 0.3 Neutrophils % % 65.0 Lymphocytes % % 23.6 Monocytes % % 8.3 Eosinophils % % 2.2 Basophils % % 0.6 Nucleated RBC % (0.0-0.3) % 0.0 Absolute Neutrophils (1.2-6.7) 10^3/uL 4.08 Absolute Lymphocytes (1.2-3.4) 10^3/uL 1.48 Absolute Monocytes (0.1-0.8) 10^3/uL 0.52 Absolute Eosinophils (0.0-0.7) 10^3/uL 0.14 Absolute Basophils (0.0-0.2) 10^3/uL 0.04 PT (9.1-11.1) sec 10.3 INR (0.9-1.1) 1.0 Urine Color (Yellow) Yellow Urine Clarity (Clear) Clear Urine pH (5-8) 6.0 Ur Specific [place] (1.005-1.025) 1.015 Urine Protein (Neg-Trace) mg/dL Negative Urine Ketones (Negative) mg/dL Trace H Urine Blood (Negative) Trace-intact H Urine Nitrite (Negative) Negative Urine Bilirubin (Negative) Negative Urine Urobilinogen (Up to 0.2) mg/dL 0.2 Ur Leukocyte Esterase (Negative) Negative Urine RBC (0-2) HPF 5-10 H Urine WBC (0-5) HPF 0-2 Ur Epithelial Cells (Negative) HPF Rare Urine Crystals (Negative) HPF Negative Urine Bacteria (Negative) HPF Negative Urine Mucus (Negative) Negative Ur Culture Indicated? No Urine Glucose (Negative) mg/dL Negative Urine Opiates Screen (Negative) Negative Urine Methadone Screen (Negative) Negative Ur Barbiturates Screen (Negative) Negative Ur Tricyclics Screen (Negative) Negative Ur Amphetamines Screen (Negative) Negative U Benzodiazepines Scrn (Negative) Positive A Urine Cocaine Screen (Negative) Negative Ur THC Screen (Negative) Positive A Medical Decision Making Quality:[facility] Health Related Social Needs: No Data to Display [facility] Social History Smoking risk assessment performed?: No Sign Out Sign Out Data: Sign Out Comment: 69-year-old female patient presenting by EMS for altered mental status and convulsion activity, received 2 doses of benzos and a Keppra load given concern for subclinical status and a failure to return to baseline in between events. Maintaining her airway, hemodynamically stable, laboratory workup significant only for mild hypokalemia which is being repleted. CT head unremarkable. [facility] evaluated the patient, recommends transfer for continuous EEG and neuro evaluation. Did have a history on her real name chart for a similar episode a year ago, thought to be potentially conversion disorder with a reassuring workup at that time. Patient mental status improving but not back to baseline, now able to follow simple commands and answer simple questions. Last updated by Brionna Varghese MD at 05/19/24 00:18
[2024-05-18 22:09] LABS: ALT 16 U/L (14-59); AST 15 U/L (15-37); Albumin 3.2 g/dL (3.4-5.0); Alkaline Phosphatase 95 U/L (46-116); Anion Gap 7.5 mmol/L (3-11); BUN 14 mg/dL (7-18); Bilirubin, Total 0.27 mg/dL (0.2-1.0); CO2 29.5 mmol/L (21.0-32.0); CREATININE 0.9 mg/dL (0.55-1.02); Calcium 8.8 mg/dL (8.5-10.1); Chloride 107 mmol/L (98-107); Estimated GFR 70.07 (mL/min/1.73m2); Glucose 109 mg/dL (74-106); Magnesium 1.9 mg/dL (1.8-2.4); Potassium 3.2 mmol/L (3.5-5.1); Sodium 144 mmol/L (136-145); TSH (W/Ref FT4) 3.66 uIU/mL (0.36-3.74); Total Protein 6.6 g/dL (6.4-8.2)
[2024-05-18 22:17] LABS: ETHANOL BLOOD < 3.0 mg/dL (<10); Troponin I < 4 ng/L (<or=51)
[2024-05-18 22:18] LABS: Acetaminophen < 2 ug/mL (10-30)
[2024-05-18] MEDS: POTASSIUM CHLORIDE 10 MEQ/100 ML BAG 100 MEQ IV_INF (23:21)
[2024-05-19] VITALS (65 sets, daily range): BP systolic 75–128; BP diastolic 54–94; PULSE 53–90; RESP 11–27; O2SAT 83–100
--- OUTSIDE RECORDS SUMMARY | 2024-05-19 00:24 | XMS_ITS | Encounter Summary ---
Author Organization [facility] Address [address] [place] [address] Care Team Providers Care Tar Chaser Name Role Phone Gabbie Badillo MD Primary Care Provider Unavailabl e Encounter Details Date Type Department Care Team (Late st Contact Info) Description 11/24/2017 Results Only [facility] [phone] Gonzales Fallon Raji, DO [address] [place] [address] Social History Tobacco Use Types Packs/Day Years Used Date Smoking Tobacco: Every Day Cigarettes 0.3 48 Comments:6 cigs a day trying to quit Alcohol Use Standard Drinks/Week Comments Yes 0 (1 standard drink = 0.6 oz pur e alcohol) rarely Sex and Gender Information Value Date Recorded Sex Assigned at Not on file Gender Identity Not on file Sexual Orientation Not on file documented as of this encounter Plan of Treatment Not on file documented as of this encounter Procedures Procedure Name Priority Date/Time Associated Diagnosis Comments SURGICAL PATHOLOGY Routine 11/24/2017 22 :25 EDT documented in this encounter Results * SURGICAL PATHOLOGY (11/24/2017 22:25 EDT) Pathology Report: SURGICAL PATHOLOGY REPORT Reports generated via electronic interface contain original data; however they are lacking the format of the original report. Caution should be taken when reading/interpret ing unformatted reports. Name: ? ALIN WALL ? Accession #: ? [id number] ? : ? 1955 (Age: 62) ??F ? Collect Date: ? 11/24/2017 ? Location: ? [facility] ? Receive Date: ? 11/24/2017 ? Provider: FALLON GONZALES DO Copy to: SVETA SOLER MD ? Final Pathologic Diagnosis: STOMACH, ANTRUM, BIOPSY: - Unremarkable antral-type mucosa. - Negative for Helicobacter pylori organisms. Document reviewed and electronically signed by: CLAUDIA JOHNSON MD Report ??Date: 11/26/2017 17:23 By the signature above, the attending physician certifies that he/she has personally conducted a gross and/or microscopic examination of the described specimens and rendered or confirmed the above diagnosis. Specimen(s) Received: Gastric antrum bxs Clinical History: Epigastric pain; clinical diagnosis code: ??R10.13 Gross Description: ? Received in formalin labelled with proper patient identification (initials G, M) and gastric antrum bxs are six espinal-hernandez irregular tissues ranging from 0.2 x 0.2 x 0.2 cm to 0.4 x 0.3 x 0.2 cm. Entirely submitted in 1 and 2. CHRISTIANO Melendrez (ASCP) 11/25/2017 8:25 AM End of Report [facility] 11/24/2017 22:2 5 EDT 11/24/2017 22:25 EDT Fallon Gonzales DO PATHOLOGY ORDERABLES [facility] [address] [place] [address] documented in this encounter Visit Diagnoses Not on filedocumented in this encounter Care Teams Tar Chaser Relationship Specialty Start Date End Date Gabbie Badillo MD PCP - General 02/13/13 04/03/18 documented as of this encounter
--- OUTSIDE RECORDS SUMMARY | 2024-05-19 00:24 | XMS_ITS | Encounter Summary ---
Author Organization [facility] Address [address] [place] [address] Care Team Providers Care Mortgage Sales Manager Name Role Phone Unavailable Primary Care Provider Unavailabl e Encounter Details Date Type Department Care Team (Late st Contact Info) Description 09/04/2005 Results Only [facility] [address] [place] [address] Maxim Whelan MD [address] [place] [address] [place] [address] Social History Tobacco Use Types Packs/Day Years Used Date Smoking Tobacco: Never Assessed Sex and Gender Information Value Date Recorded Sex Assigned at Not on file Gender Identity Not on file Sexual Orientation Not on file documented as of this encounter Plan of Treatment Not on file documented as of this encounter Procedures Procedure Name Priority Date/Time Associated Diagnosis Comments SURGICAL PATHOLOGY Routine 09/04/2005 0:00 EST documented in this encounter Results * SURGICAL PATHOLOGY (09/04/2005 0:00 EST) Pathology Report: SURGICAL PATHOLOGY REPORT Reports generated via electronic interface contain original data; however they are lacking the format of the original report. Caution should be taken when reading/interpreting unformatted reports. Name: ? ALIN WALL ? Accession #: ? [id number] ? : ? 1955 (Age: 50) ??F ? Collect Date: ? 09/04/2005 ? Location: ? [facility] ? Receive Date: ? 09/05/2005 ? Provider: MAXIM WHELAN MD Copy to: LUZ CORMIER MD ? Final Pathologic Diagnosis: ? Bone, distal clavicle, acromioclavicular joint, excision: - Degenerative changes consistent with osteoarthritis. Document reviewed and electronically signed by: SILVESTRE THAKKAR MD Report ??Date: 09/14/2005 09:43 By the signature above, the attending physician certifies that he/she has personally conducted a gross and/or microscopic examination of the described specimens and rendered or confirmed the above diagnosis. Specimen(s) Received: ? Distal clavicle DJD Clinical History: ? Torn LT rotator cuff; chronic impingement; DJA L A-C joint Gross Description: ? Received in formalin labelled Wall and distal clavicle is a segment of bone measuring 1.4 cm in length, 2.0 cm in diameter and has a minimal amount of surrounding espinal-pink soft tissue. ??There is a surgical resection margin along one end and the opposing aspect has a espinal-white focally granular articular surface. ??The cut surfaces of the trabecular bone are espinal-yellow and unremarkable. ??The articular surface ranges from 0.05 cm to 0.1 cm in thickness. No definitive nodule is identified. Two client account representative sections are submitted as (A1) and (A2) following decalcification. ??(Jacqueline Patton)/[facility] End of Report [facility] 09/04/2005 09/05/2005 8:4 0 EST Maxim Whelan MD PATHOLOGY ORDERABLE S [facility] [address] [place] [address] documented in this encounter Visit Diagnoses Not on filedocumented in this encounter
--- OUTSIDE RECORDS SUMMARY | 2024-05-19 00:24 | XMS_ITS | Encounter Summary ---
Author Organization [facility] Address [address] [place] [address] Care Team Providers Care Bituminous Paving Machine Operator Name Role Phone Gabbie Badillo MD Primary Care Provider Unavailabl e Encounter Details Date Type Department Care Team (Latest Contact Info) Description 12/01/2017 17:37 EDT - 12/01/2017 23:59 EDT Hospital Encounter [address] [address] Unknown, Provider, Discharge Disposition: Home or Self Care Social History Tobacco Use Types Packs/Day Years [...] on file documented as of this encounter Medications at Time of Discharge Medication Sig Dispensed Refills Start Date End Date ascorbic acid (VITAMIN C) 500 mg tablet Take 1,000 mg by mouth daily. bisacodyl (DULCOLAX) 5 mg EC tablet Take 5 mg by mouth daily as needed. CALCIUM CARBONATE/VITAMIN D3 (CALTRATE 600 + D ORAL) Take by mouth. DOCUSATE SODIUM (COLACE ORAL) Take 5 mg by mouth. HYDROcodone-acetaminophen (VICODIN) 5-500 mg tablet Take 1 Tab by mouth as needed. meloxicam (MOBIC) 15 mg tablet Take 1 Tab by mouth daily. 30 Tab 3 02/20/2013 naproxen (NAPROSYN) 500 mg tablet Take 500 mg by mouth 2 times daily. nortriptyline (PAMELOR) 25 mg capsule Take 25 mg by mouth 3 times daily. [place]-3 Fatty Acids-Vitamin E (FISH OIL) 1,000 mg capsule Take by mouth. omeprazole (PRILOSEC) 20 mg capsule Take 20 mg by mouth daily. PROPRANOLOL HCL (INDERAL ORAL) Take 20 mg by mouth. documented as of this encounter Discharge Disposition Disposition Code Departure Means Destination Home or Self Prison documented in this encounter Plan of Treatment Not on file documented as of this encounter Visit Diagnoses Not on filedocumented in this encounter Care Teams Bituminous Paving Machine Operator Relationship Specialty Start Date End Date Gabbie Badillo MD PCP - General 02/13/13 04/03/18 documented as of this encounter
--- OUTSIDE RECORDS SUMMARY | 2024-05-19 00:24 | XMS_ITS | Encounter Summary ---
Author Organization [facility] Address [address] [place] [address] Care Team Providers Care Electrical Test Technician Name Role Phone Gabbie Badillo MD Primary Care Provider Unavailabl e Encounter Details Date Type Department Care Team (Latest Contact Info) Description 11/24/2017 17:50 EDT - 11/24/2017 23:59 EDT Hospital Encounter [address] [id number] Unknown, Provider, Discharge Disposition: Home or Self [...] 25 mg by mouth 3 times daily. [place]-3 Fatty Acids-Vitamin E (FISH OIL) 1,000 mg capsule Take by mouth. omeprazole (PRILOSEC) 20 mg capsule Take 20 mg by mouth daily. PROPRANOLOL HCL (INDERAL ORAL) Take 20 mg by mouth. documented as of this encounter Discharge Disposition Disposition Code Departure Means Destination Home or Self Longterm documented in this encounter Plan of Treatment Not on file documented as of this encounter Visit Diagnoses Not on filedocumented in this encounter Care Teams Electrical Test Technician Relationship Specialty Start Date End Date Gabbie Badillo MD PCP - General 02/13/13 04/03/18 documented as of this encounter
--- OUTSIDE RECORDS SUMMARY | 2024-05-19 00:24 | XMS_ITS | Encounter Summary ---
Author Organization [facility] Address [address] [place] [address] Care Team Providers Care Adult Neuropsychologist Name Role Phone Unavailable Primary Care Provider Unavailabl e Encounter Details Date Type Department Care Team (Late st Contact Info) Description 01/02/2004 Results Only [facility] Family Medicine - [address] [phone] Gabbie Badillo MD Social History Tobacco Use Types Packs/Day Years Used Date Smoking Tobacco: Never Assessed Sex and Gender Information Value Date Recorded Sex Assigned at Not on file Gender Identity Not on file Sexual Orientation Not on file documented as of this encounter Plan of Treatment Not on file documented as of this encounter Procedures Procedure Name Priority Date/Time Associated Diagnosis Comments CYTOPATHOLOGY Routine 01/02/2004 0:00 EDT documented in this encounter Results * CYTOPATHOLOGY (01/02/2004 0:00 EDT) Pathology Report: CYTOPATHOLOGY REPORT Reports generated via electronic interface contain original data; however they are lacking the format of the original report. Caution should be taken when reading/interpreti ng unformatted reports. Name: ? ALIN WALL ? Accession #: ? [id number] : ? 1955 (Age: 48) ??F ?Collect Date: ? 01/02/2004 Location: ? [facility] ? Receive Date: ? 01/04/2004 Provider: ?GABBIE BADILLO MD Copy to: ? Specimen/Source: ?ThinPrep Pap Test, Endocervix Last Menstrual Period: ? 12/19/03 Other: ? Additional clinical information: abnl vag bleeding HPVA - HPV testing requested if ASC-US on the current ThinPrep Pap test. ? SPECIMEN ADEQUACY ? Satisfactory for Evaluation - transformation zone component present GENERAL CATEGORIZATION ? Negative for Intraepithelial Lesion or Malignancy ? Document reviewed and electronically signed by: ? Paula Rutledge, RAMILA(ASCP)(IAC) ? Report Date: ??01/09/2004 10:19 End of Report [facility] 01/02/2004 01/04/2004 Gabbie Badillo MD PATHOLOGY ORDERABLES [facility] [address] [place] [address] documented in this encounter Visit Diagnoses Not on filedocumented in this encounter
--- OUTSIDE RECORDS SUMMARY | 2024-05-19 00:24 | XMS_ITS | Encounter Summary ---
Author Organization [facility] Address [address] [place] [address] Care Team Providers Care Enterprise Application Architect Name Role Phone Ailyn Barbosa MD Primary Care Provider [phone] Reason for Referral * Radiology Services (Routine) - New Request Specialty Diagnoses / Procedures Referred By Contandriy t Referred To Contact Diagnoses Low back pain, unspecified back pain laterality, unspecified chronicity, with sciatica presence unspecified Procedures L SPINE 4 OR MORE VIEWS Alisha Ding PA-C [address] [place] [address] [place] [address] Referral ID Status Reason Start Date Expiration Date V isits Requested Visits Authorized [id number] New Request 05/13/2018 1 1 Encounter Details Date Type Department Care Team (Late st Contact Info) Description 05/13/2018 Orders Only [facility] - [place] [address] [place] [address] Alisha Ding PA-C [address] [place] [address] [place] [address] Low back pain, unspecified back pain laterality, unspecified chronicity, with sciatica presence unspecified (Primary Dx) Social History Tobacco Use Types Packs/Day Years [...] Procedure Name Priority Date/Time Associated Diagnosis Comments L SPINE 4 OR MORE VIEWS Routine 05/27/2018 14:33 EST Low back pain, unspecified back pain laterality, unspecified chronicity, with sciatica presence unspecified documented in this encounter Results * L SPINE 4 OR MORE VIEWS (05/27/2018 14:33 EST) Anatomical Region Laterality Modality Other 05/27/2018 14:3 3 EST 05/30/2018 8:52 EST Narrative 05/30/2018 8:52 EST THORACIC SPINE 2 VIEWS, L SPINE 4 OR MORE VIEWS ??05/27/2018 3:24 PM Clinical History/Comments: M54.6-Pain in thoracic [id number]; Mid back pain. Technique: AP and lateral views of the thoracic and lumbar spine. Flexion and extension views of the lumbar spine. Comparison: None. Findings: There is dextrocurvature of the lower thoracic/upper lumbar spine with apex at approximately T12. There is levocurvature of the lumbar spine with apex at L3-4. The cervicothoracic junction is obscured by the shoulders, even on the swimmer's view. The bones appear diffusely demineralized. No definite evidence of thoracic compression fracture. Multilevel anterior disc height loss in the midthoracic spine with slightly exaggerated kyphosis. No thoracic spondylolisthesis. Mild retrolisthesis of T12 on L1, L1 on L2, and and L3 on L4. Grade 1 anterolisthesis of L5 on S1. No significant change in alignment between flexion and extension. Lumbar vertebral body heights are normal. Disc height loss in the lumbar spine at multiple levels, most notably at T12-L1, L1-L2, and L5-S1. Degenerative changes of bilateral sacroiliac joints are present. Facet arthropathy L3-S1. Surgical clips project over the abdomen. Atherosclerotic calcifications of the abdominal aorta. Procedure Note Juan Lang MD - 05/30/2018 THORACIC SPINE 2 VIEWS, L SPINE 4 OR MORE VIEWS 05/27/2018 3:24 PM Clinical History/Comments: M54.6-Pain in thoracic [id number]; Mid back pain. Technique: AP and lateral views of the thoracic and lumbar spine. Flexion and extension views of the lumbar spine. Comparison: None. Findings: There is dextrocurvature of the lower thoracic/upper lumbar spine with apex at approximately T12. There is levocurvature of the lumbar spine with apex at L3-4. The cervicothoracic junction is obscured by the shoulders, even on the swimmer's view. The bones appear diffusely demineralized. No definite evidence of thoracic compression fracture. Multilevel anterior disc height loss in the midthoracic spine with slightly exaggerated kyphosis. No thoracic spondylolisthesis. Mild retrolisthesis of T12 on L1, L1 on L2, and and L3 on L4. Grade 1 anterolisthesis of L5 on S1. No significant change in alignment between flexion and extension. Lumbar vertebral body heights are normal. Disc height loss in the lumbar spine at multiple levels, most notably at T12-L1, L1-L2, and L5-S1. Degenerative changes of bilateral sacroiliac joints are present. Facet arthropathy L3-S1. Surgical clips project over the abdomen. Atherosclerotic calcifications of the abdominal aorta. Alisha Ding PA-C [facility] ORDERABLES documented in this encounter Visit Diagnoses Diagnosis Low back pain, unspecified back pain laterality, unspecified chronicity, with sciatica presence unspecified- Primary documented in this encounter Care Teams Enterprise Application Architect Relationship Specialty Start Date End Date Aiyln Barbosa MD [address] [place] [id number] PCP - General 04/04/18 documented as of this encounter
--- OUTSIDE RECORDS SUMMARY | 2024-05-19 00:24 | XMS_ITS | Encounter Summary ---
Author Organization [facility] Address [address] [place] [address] Care Team Providers Care Brewer Helper Name Role Phone Gabbie Badillo MD Primary Care Provider Unavailabl e Reason for Visit * Reason Onset Date Comments Results 02/20/2013 Encounter Details Date Type Department Care Team (Late st Contact Info) Description 02/20/2013 Telephone [facility] Rheumatology & Immunology - [address] [phone] Alecia Sherwood MD [address] [place] [address], [address] [place] [address] Results Social History Tobacco Use Types Packs/Day Years [...] on file documented as of this encounter Miscellaneous Notes * Telephone Encounter - Alecia Sherwood MD - 02/20/2013 1702 EDT Left message that x-rays show OA, no CPPD or any changes to suggest hemochromatosis. documented in this encounter Plan of Treatment Not on file documented as of this encounter Visit Diagnoses Not on filedocumented in this encounter Care Teams Brewer Helper Relationship Specialty Start Date End Date Gabbie Badillo MD PCP - General 02/13/13 04/03/18 documented as of this encounter
--- OUTSIDE RECORDS SUMMARY | 2024-05-19 00:24 | XMS_ITS | Encounter Summary ---
Author Organization [facility] Address [address] [place] [address] Care Team Providers Care Leave Manager Name Role Phone Gabbie Badillo MD Primary Care Provider Unavailabl e Encounter Details Date Type Department Care Team (Late st Contact Info) Description 08/03/2014 Results Only [facility] Laboratory Services - [facility] ([facility] [address] [place] [address] Soledad Kohler MD [address] [place] [address] [place] [address] Social History Tobacco Use Types Packs/Day Years [...] Procedure Name Priority Date/Time Associated Diagnosis Comments PAP TEST- RESULT ONLY Routine 08/03/2014 0:00 EST documented in this encounter Results * PAP TEST- RESULT ONLY (08/03/2014 0:00 EST) Pathology Report: CYTOPATHOLOGY REPORT Reports generated via electronic interface contain original data; however they are lacking the format of the original report. Caution should be taken when reading/interpreti ng unformatted reports. Name: ? ALIN WLAL ? Accession #: ? [id number] ? : ? 1955 (Age: 59) ??F ?Collect Date: ? 08/03/2014 ? Location: ? [facility] ? Receive Date: ? 08/06/2014 ? Provider: SOLEDAD KOHLER MD Copy to: GABBIE BADILLO MD ? Final Report SPECIMEN ADEQUACY ? Satisfactory for Evaluation - transformation zone component present GENERAL CATEGORIZATION ? Negative for Intraepithelial Lesion or Malignancy ?? Specimen/Source: ??Pap Test, Cervix/Endocervix, ThinPrep Imaging System with manual evaluation Document reviewed and electronically signed by: ? Ayanna Fu, CT(ASCP) ? Report ??Date: 08/08/2014 15:48 HPV with Pap Test ? Date Ordered: ? 08/08/2014 ? Status: ?? Signed Out ?Date Complete: ? 08/10/2014 ? By: ??System Interface ? Date Reported: ? 08/10/2014 ? Interpretation RESULT: Negative for HPV. No E6 or E7 mRNA is detected from HPV types 16,18,31,33,35, 39,45,51,52,56,58, 59,66, and 68 by industrial design intern mediated amplification. Comments Document reviewed and electronically signed by: ? System Interface ? Report date: 08/10/2014 By the signature above, the attending physician certifies that he/she has personally conducted a gross and/or microscopic examination of the described specimens and rendered or confirmed the above diagnosis. End of Report [facility] 08/03/2014 08/06/2014 Soledad Kohler MD PATHOLOGY ORDERABLES [facility] [address] [place] [address] documented in this encounter Visit Diagnoses Not on filedocumented in this encounter Care Teams Leave Manager Relationship Specialty Start Date End Date Gabbie Badillo MD PCP - General 02/13/13 04/03/18 documented as of this encounter
--- OUTSIDE RECORDS SUMMARY | 2024-05-19 00:24 | XMS_ITS | Encounter Summary ---
Author Organization [facility] Address [address] [place] [address] Care Team Providers Care Poker Machine Attendant Name Role Phone Gabbie Badillo MD Primary Care Provider Unavailabl e Encounter Details Date Type Department Care Team (Late st Contact Info) Description 08/22/2014 Results Only [facility] Laboratory Services - [facility] ([facility]) [address] [place], [place] [phone] Soledad Kohler MD [address] [place] [address] [place] [address] Social History Tobacco Use Types Packs/Day Years [...] Date/Time Associated Diagnosis Comments SURGICAL PATHOLOGY Routine 08/22/2014 8:14 EST documented in this encounter Results * SURGICAL PATHOLOGY (08/22/2014 8:14 EST) Pathology Report: SURGICAL PATHOLOGY REPORT Reports generated via electronic interface contain original data; however they are lacking the format of the original report. Caution should be taken when reading/interpreting unformatted reports. Name: ? ALIN WALL ? Accession #: ? [id number] ? : ? 1955 (Age: 59) ??F ? Collect Date: ? 08/22/2014 ? Location: ? [facility] ? Receive Date: ? 08/23/2014 ? Provider: SOLEDAD KOHLER MD Copy to: GABBIE BADILLO MD ? Final Pathologic Diagnosis: UTERUS, CERVIX, FALLOPIAN TUBES AND OVARIES, HYSTERECTOMY AND SALPINGO-OOPHORECTOMIE S: - ??Cervix: ? - ??No specific histopathologic features. - ??Endometrium: ? - ??Weakly proliferative with no specific histopathologic features. - ??Myometrium: ?- ??Leiomyomata, intramural and subserosal (largest measures 6.1 cm) with sclerosing changes and benign vascular proliferation. ??See comment. ? - ??Adenomyosis. - ??Serosa: ? - ??No specific histopathologic features. - ??Fallopian tubes: ? - ??No specific histopathologic features. - ??Ovaries: ? - ??Corpus luteal cyst. Comment: Immunohistochemical study, with appropriate positive and negative controls, was performed to rule out adenomatoid tumor, and the immunoreactivity pattern does not support adenomatoid tumor. IMMUNOHISTOCHEISTRY: ANTIBODY(CLONE)(BLOCK) :RESULT calretinin (rabbit monoclonal (SP13), [employer]) (block 6): Negative CK5/6 (D5/16B4, Dako) (block 6): Negative D2-40 (D2-40, Dako) (block 6): Negative This case was reviewed at intradepartmental consultation conference. NOTE: ??One or more of the reagents used in immunohistochemical testing in this case may not have been cleared or approved by the U.S. Food and Drug Administration (FDA). ??The FDA has determined that such clearance or approval is not necessary. ??These tests are used for clinical purposes. ??They should not be regarded as investigational or for research. ??These reagents' performance characteristics have been determined by [facility]. ??The positive and negative controls worked appropriately. This laboratory is certified under the Clinical Laboratory Improvement Amendments of 1988 (CLIA-88) as qualified to perform high complexity clinical laboratory testing. Document reviewed and electronically signed by: Cher Simmons MD Report ??Date: 08/30/2014 16:03 By the signature above, the attending physician certifies that he/she has personally conducted a gross and/or microscopic examination of the described specimens and rendered or confirmed the above diagnosis. Specimen(s) Received: Uterus, fallopian tubes, and ovaries Clinical History: Fibroid uterus, pelvic pain Gross Description: ? Received in formalin labelled with proper patient identification (initials G, M) and uterus, tubes + ovaries is an intact uterus and cervix (256 gm, 10.0 cm cervix to fundus x 7.0 cm cornu to cornu x 9.0 cm anterior to posterior) with attached left and right ovaries (Left: 3.3 x 1.6 x 1.2 cm and Right: 2.8 x 1.5 x 1.2 cm) and left and right fimbriated fallopian tubes (Left: 5.5 cm in length x 0.7 cm in diameter and Right: 6.0 cm in length x 0.7 cm in diameter). ? The uterine serosa is espinal to light red, bosselated but otherwise smooth. The endometrium is generally smooth, espinal-red and has a thickness of 0.2 cm. The myometrium is espinal-pink, firm, focally mildly trabecular (the myometrium proper measures up to 2.3 cm on the anterior half of the uterus). ??Within the myometrium there are several subserosal and intramural well circumscribed nodules which have a espinal-white whorled cut surface without hemorrhage or necrosis. ??The largest myoma is bulging from the posterior uterus (measures 6.1 cm in greatest dimension while the remaining myomata range from 1.2 cm to 0.2 cm in greatest dimension). ??The ectocervix is generally smooth, white and moderately hyperemic around the external os, and the endocervix is espinal-white and slightly furrowed. The left and right ovaries have a espinal-yellow mildly furrowed but otherwise generally smooth outer surface and sectioning discloses the right ovary has a clear fluid-filled cyst (0.6 cm in diameter) with a smooth espinal-red inner lining. ??The parenchyma otherwise is firm, light espinal-white. ??The fallopian tubes have a espinal dark red generally smooth serosa and sectioning discloses espinal-white firm cut surface with a pinpoint lumen throughout. ? Ski Molder sections are submitted as follows: BLOCK VELÁZQUEZ A1- ??anterior endomyometrium, full thickness A2- ??anterior endomyometrium, full thickness A3- ??posterior endomyometrium A4- ??posterior endomyometrium A5-A6- ??largest myoma located in posterior half of the uterus, eight sections A7-A8- ??six sections of remaining myomata A9- ??right ovary A10- ??right fallopian tube, three sections A11- ??left ovary A12- ??left fallopian tube, three sections Leroy Nobles 08/23/2014 12:16 PM End of Report [facility] 08/22/2014 8:14 EST 08/23/2014 8:14 EST Soledad Kohler MD PATHOLOGY ORDERABLES [facility] [address] [place] [address] documented in this encounter Visit Diagnoses Not on filedocumented in this encounter Care Teams Poker Machine Attendant Relationship Specialty Start Date End Date Gabbie Badillo MD PCP - General 02/13/13 04/03/18 documented as of this encounter
--- OUTSIDE RECORDS SUMMARY | 2024-05-19 00:24 | XMS_ITS | Encounter Summary ---
Author Organization [facility] Address [address] [place] [address] Care Team Providers Care Hot Dip Tinning Supervisor Name Role Phone Unavailable Primary Care Provider Unavailabl e Encounter Details Date Type Department Care Team (Late st Contact Info) Description 01/23/2004 Results Only [facility] Family Medicine - [address] [phone] Gabbie Badillo MD Social History Tobacco Use [...] Date/Time Associated Diagnosis Comments SURGICAL PATHOLOGY Routine 01/23/2004 0:00 EDT documented in this encounter Results * SURGICAL PATHOLOGY (01/23/2004 0:00 EDT) Pathology Report: SURGICAL PATHOLOGY REPORT Reports generated via electronic interface contain original data; however they are lacking the format of the original report. Caution should be taken when reading/interpreti ng unformatted reports. Name: ? ALIN WALL ? Accession #: ? [id number] ? : ? 1955 (Age: 48) ??F ? Collect Date: ? 01/23/2004 ? Location: ? [facility] ? Receive Date: ? 01/25/2004 ? Provider: GABBIE BADILLO MD Copy to: ? Final Pathologic Diagnosis: ? Endometrium, biopsy: 1. ?Benign proliferative endometrium. ? - No evidence of chronic endometritis, polyp, hyperplasia, or malignancy. 2. ?Benign endocervical tissue with squamous metaplasia. Document reviewed and electronically signed by: Cher Simmons MD Report ??Date: 01/28/2004 17:05 By the signature above, the attending physician certifies that he/she has personally conducted a gross and/or microscopic examination of the described specimens and rendered or confirmed the above diagnosis. Specimen(s) Received: ? Endometrial biopsy Clinical History: ? Abnormal uterine bleeding; LMP: 01/17/04 Gross Description: ? Received in formalin labelled Wall and endometrial biopsy is a 1.6 x 1.5 x 0.3 cm aggregate of blood tinged mucus admixed with soft tissue which is submitted in toto as (A1) and (A2). ??(Ramez Gar)/tmg ?? End of Report WANDA GUPTA 01/23/2004 01/25/2004 10: 34 EDT Gabbie Badillo MD PATHOLOGY ORDERABLES [facility] [address] [place] [address] documented in this encounter Visit Diagnoses Not on filedocumented in this encounter
--- OUTSIDE RECORDS SUMMARY | 2024-05-19 00:24 | XMS_ITS | Encounter Summary ---
Author Organization [facility] Address [address] [place] [address] Care Team Providers Care Knuckle Bender Name Role Phone Gabbie Badillo MD Primary Care Provider Unavailabl e Encounter Details Date Type Department Care Team (Late st Contact Info) Description 02/20/2013 Results Only [facility] Rheumatology & Immunology - [address] [phone] Alecia Sherwood MD [address] [place] [address], [address] [place] [address] Social History Tobacco Use Types Packs/Day Years [...] Procedure Name Priority Date/Time Associated Diagnosis Comments HAND 2 VIEWS 02/20/2013 11:34 EDT documented in this encounter Results * HAND 2 VIEWS (02/20/2013 11:34 EDT) Anatomical Region Laterality Modality Other 02/20/2013 11:3 4 EDT 02/20/2013 16:16 EDT Narrative 02/20/2013 16:16 EDT Findings: Left hand: 2 views of the left hand were obtained. Degenerative joint space narrowing is seen at the 2nd, 3rd and 5th DIP joints. A possible marginal erosion versus cortical irregularity is seen at the head of the 3rd middle phalanx. Otherwise joint spaces are preserved. No chondrocalcinosis is seen. Right hand: 2 views of the right hand demonstrate degenerative space narrowing at the 2nd and 3rd DIP joints. No erosions are seen. There is no chondrocalcinosis. Procedure Note 02/20/2013 Findings: Left hand: 2 views of the left hand were obtained. Degenerative joint space narrowing is seen at the 2nd, 3rd and 5th DIP joints. A possible marginal erosion versus cortical irregularity is seen at the head of the 3rd middle phalanx. Otherwise joint spaces are preserved. No chondrocalcinosis is seen. Right hand: 2 views of the right hand demonstrate degenerative space narrowing at the 2nd and 3rd DIP joints. No erosions are seen. There is no chondrocalcinosis. Alecia Sherwood MD IMG DIAGNOSTIC IMAGI NG ORDERABLES documented in this encounter Visit Diagnoses Not on filedocumented in this encounter Care Teams Knuckle Bender Relationship Specialty Start Date End Date Gabbie Badillo MD PCP - General 02/13/13 04/03/18 documented as of this encounter
--- OUTSIDE RECORDS SUMMARY | 2024-05-19 00:24 | XMS_ITS | Encounter Summary ---
Author Organization [facility] Address [address] [place] [address] Care Team Providers Care Lead Teacher Name Role Phone Gabbie Badillo MD Primary Care Provider Unavailabl e Encounter Details Date Type Department Care Team (Latest Contact Info) Description 08/07/2014 14:47 EST - 08/07/2014 23:59 EST Hospital Encounter [address] [id number] Unknown, Provider, Discharge Disposition: Home or Self [...] 25 mg by mouth 3 times daily. [place]-3 Fatty Acids-Vitamin E (FISH OIL) 1,000 mg capsule Take by mouth. omeprazole (PRILOSEC) 20 mg capsule Take 20 mg by mouth daily. PROPRANOLOL HCL (INDERAL ORAL) Take 20 mg by mouth. documented as of this encounter Discharge Disposition Disposition Code Departure Means Destination Home or Self Jail documented in this encounter Plan of Treatment Not on file documented as of this encounter Visit Diagnoses Not on filedocumented in this encounter Care Teams Lead Teacher Relationship Specialty Start Date End Date Gabbie Badillo MD PCP - General 02/13/13 04/03/18 documented as of this encounter
--- OUTSIDE RECORDS SUMMARY | 2024-05-19 00:24 | XMS_ITS | Encounter Summary ---
Author Organization [facility] Address [address] [place] [address] Care Team Providers Care Song Writer Name Role Phone Gabbie Badillo MD Primary Care Provider Unavailabl e Encounter Details Date Type Department Care Team (Latest Contact Info) Description 08/22/2014 14:52 EST - 08/22/2014 23:59 EST Hospital Encounter [address] [address] Unknown, Provider, Discharge Disposition: Home or Self [...] 25 mg by mouth 3 times daily. [place]-3 Fatty Acids-Vitamin E (FISH OIL) 1,000 mg capsule Take by mouth. omeprazole (PRILOSEC) 20 mg capsule Take 20 mg by mouth daily. PROPRANOLOL HCL (INDERAL ORAL) Take 20 mg by mouth. documented as of this encounter Discharge Disposition Disposition Code Departure Means Destination Home or Self Half-Way documented in this encounter Plan of Treatment Not on file documented as of this encounter Visit Diagnoses Not on filedocumented in this encounter Care Teams Song Writer Relationship Specialty Start Date End Date Gabbie Badillo MD PCP - General 02/13/13 04/03/18 documented as of this encounter
--- OUTSIDE RECORDS SUMMARY | 2024-05-19 00:24 | XMS_ITS | Clinical Summary ---
Author Organization [facility] Address [address] [place] [address] Care Team Providers Care Endless Steamer Tender Name Role Phone Ailyn Barbosa MD Primary Care Provider [phone] Allergies Active Allergy Reactions Criticality Noted Date Comments Penicillins Rash 02/20/2013 Medications Medication Sig Dispensed Refills Start Date End Date Status CALCIUM CARBONATE/VITAMIN D3 (CALTRATE 600 + D ORAL) Take by mouth. Active ascorbic acid (VITAMIN C) 500 mg tablet Take 1,000 mg by mouth daily. Active [place]-3 Fatty Acids-Vitamin E (FISH OIL) 1,000 mg capsule Take by mouth. Active naproxen (NAPROSYN) 500 mg tablet Take 500 mg by mouth 2 times daily. Active nortriptyline (PAMELOR) 25 mg capsule Take 25 mg by mouth 3 times daily. Active PROPRANOLOL HCL (INDERAL ORAL) Take 20 mg by mouth. Active omeprazole (PRILOSEC) 20 mg capsule Take 20 mg by mouth daily. Active HYDROcodone-acetamin ophen (VICODIN) 5-500 mg tablet Take 1 Tab by mouth as needed. Active DOCUSATE SODIUM (COLACE ORAL) Take 5 mg by mouth. Ac tive bisacodyl (DULCOLAX) 5 mg EC tablet Take 5 mg by mouth daily as needed. Active meloxicam (MOBIC) 15 mg tablet Take 1 Tab by mouth daily. 30 Tab 3 02/20/2013 Active amlodipine besylate (AMLODIPINE ORAL) Take 40 mg by mouth 2 times daily. Active UNABLE TO FIND Med Name: cranberry concentrate Active traMADol (ULTRAM) 50 mg tablet Take 50 mg by mouth every 6 hours as needed for Pain. Active Active Problems Problem Noted Date Diagnosed Date Pain in joint, multiple sites 02/20/2013 Migraine Surgical History Surgery Date Site/Laterality Comments SHOULDER SURGERY 2009 traumatic surgery injury requiring clavicle alize placement and right hip bone removal to shoulder Medical History Medical History Date Comments Migraine 30 years stable w/o recen t headaches on propanolol and nortriptyline GERD (gastroesophageal reflux disease) Hypertension Family History Medical History Relation Comments Hemochromatosis Father Relation Status Comments Father Social History Tobacco Use Types Packs/Day Years Used Date Smoking Tobacco: Every Day Cigarettes 0.3 48 Smokeless Tobacco: Former Chew Comments:6 cigs a day trying to quit Alcohol Use Standard Drinks/Week Comments Yes 0 (1 standard drink = 0.6 oz pur e alcohol) rarely Interpersonal Safety Answer Date Record ed Physically Hurt Never 02/18/2020 Verbally Threaten Not on file 02/18/2020 Sex and Gender Information Value Date Recorded Sex Assigned at Not on file Gender Identity Not on file Sexual Orientation Not on file Obstetrics History Last Filed Vital Signs Vital Sign Reading Time Taken Comments Blood Pressure 140/85 02/20/2013 0915 EDT Pulse 78 02/20/2013 0915 EDT Temperature - - Respiratory Rate 18 02/20/2013 0915 EDT Oxygen Saturation - - Inhaled Oxygen Concentration - - Weight 75.3 kg (166 lb) 02/20/2013 0915 EDT Height 157.5 cm (5' 2) 02/20/2013 0915 EDT Body Mass Index 30.36 02/20/2013 0915 EDT Plan of Treatment Health Maintenance Due Date Last Done Comments Hepatitis C Screen 1955 RSV Immunization ( o r 60+ Years) (1 - 1-dose 60+ series) 2017 Fall Risk Screening 2022 COVID-19 Vaccine (2022- season) 2023 Care Teams Endless Steamer Tender Relationship Specialty Start Date End Date Ailyn Barbosa MD [address] [place] [phone] PCP - General 04/04/18
--- OUTSIDE RECORDS SUMMARY | 2024-05-19 00:24 | XMS_ITS | Encounter Summary ---
Author Organization [facility] Address [address] [place] [address] Care Team Providers Care Recharger Name Role Phone Gabbie Badillo MD Primary Care Provider Unavailabl e Encounter Details Date Type Department Care Team (Late st Contact Info) Description 08/07/2014 Results Only [facility] Laboratory Services - [facility] ([facility] [address] [place], [place] [phone] Soledad Kohler MD [address] [place] [address] [place] [address] Social History Tobacco Use Types Packs/Day Years [...] Date/Time Associated Diagnosis Comments SURGICAL PATHOLOGY Routine 08/07/2014 8:41 EST documented in this encounter Results * SURGICAL PATHOLOGY (08/07/2014 8:41 EST) Pathology Report: SURGICAL PATHOLOGY REPORT Reports generated via electronic interface contain original data; however they are lacking the format of the original report. Caution should be taken when reading/interpret ing unformatted reports. Name: ? ALIN WALL ? Accession #: ? [id number] ? : ? 1955 (Age: 59) ??F ? Collect Date: ? 08/07/2014 ? Location: ? [facility] ? Receive Date: ? 08/08/2014 ? Provider: SOLEDAD KOHLER MD Copy to: GABBIE BADILLO MD ? Final Pathologic Diagnosis: ENDOMETRIUM, BIOPSY: - ??Simple hyperplasia without atypia. Document reviewed and electronically signed by: ARUN VELASQUEZ MD Report ??Date: 08/10/2014 15:17 By the signature above, the attending physician certifies that he/she has personally conducted a gross and/or microscopic examination of the described specimens and rendered or confirmed the above diagnosis. Specimen(s) Received: Endometrial biopsy Clinical History: U/S finding of fluid in uterine cavity Gross Description: ? Received in formalin labelled with proper patient identification (initials G, M) and endometrial bx is an aggregate of espinal-red tissue fragments admixed with mucus (1.5 x 1.5 x 0.3 cm). Submitted in toto in 1. Gaviota Mercedes 08/08/2014 10:46 AM End of Report [facility] 08/07/2014 8:41 EST 08/08/2014 8:41 EST Soledad Kohler MD PATHOLOGY ORDERABLES [facility] [address] [place] [address] documented in this encounter Visit Diagnoses Not on filedocumented in this encounter Care Teams Recharger Relationship Specialty Start Date End Date Gabbie Badillo MD PCP - General 02/13/13 04/03/18 documented as of this encounter
--- OUTSIDE RECORDS SUMMARY | 2024-05-19 00:24 | XMS_ITS | Encounter Summary ---
Author Organization [facility] Address [address] [place] [address] Care Team Providers Care Research Recruiter Name Role Phone Ailyn Barbosa MD Primary Care Provider [phone] Reason for Referral * Radiology Services (Routine) - Authorized Specialty Diagnoses / Procedures Referred By Contac t Referred To Contact Diagnoses Chronic bilateral low back pain without sciatica Thoracic spine pain Procedures MR LUMBAR SPINE WO CONTRAST Alisha Ding PA-C [address] [place] [phone] Referral ID Status Reason Start Date Expiration Date V isits Requested Visits Authorized [id number] Authorized 05/27/2018 1 1 * Radiology Services (Routine) - Authorized Specialty Diagnoses / Procedures Referred By Contac t Referred To Contact Diagnoses Thoracic spine pain Procedures MR THORACIC SPINE WO CONTRAST Alisha Ding PA-C [address] [place] [phone] Referral ID Status Reason Start Date Expiration Date V isits Requested Visits Authorized [id number] Authorized 05/27/2018 1 1 * Radiology Services (Routine) - New Request Specialty Diagnoses / Procedures Referred By Contac t Referred To Contact Diagnoses Thoracic spine pain Procedures THORACIC SPINE 2-3 VIEWS Alisha Ding PA-C [address] [place] [phone] Referral ID Status Reason Start Date Expiration Date V isits Requested Visits Authorized [id number] New Request 05/27/2018 1 1 Reason for Visit * Reason Comments Back Pain mid to low back R>L burning stabbing * Consult (Routine) - Closed Specialty Diagnoses / Procedures Referred By Contac t Referred To Contact Orthopedic Surgery Diagnoses Mid back pain Ailyn Barbosa MD [address] [place] [phone] [facility] [address] [place] [address] Referral ID Status Reason Start Date Expiration Date Visits Re quested Visits Authorized [id number] Closed 1 1 Encounter Details Date Type Department Care Team (Late st Contact Info) Description 05/27/2018 14:00 EST Office Visit [facility] Spine [facility] [place] [address] Alisha Ding PA-C [address] [place] [address] [place] [phone] Thoracic spine pain (Primary Dx); Chronic bilateral low back pain without sciatica Discharge Disposition: Auto Discharge Social History Tobacco Use Types Packs/Day Years [...] on file documented as of this encounter Discharge Diagnoses Diagnosis M54.6 Pain in thoracic spine-M54.6[ICD-10-CM] M54.5 Low back pain-M54.5[ICD-10-CM] documented in this encounter Discharge Disposition Disposition Code Departure Means Destination Auto Discharge documented in this encounter Progress Notes * Alisha Rodriguez - 05/27/2018 1400 EST Patient states she has claustrophobia and needs medication PCP to prescribe medication Also has Plate with screws in her left shoulder * Alisha Ding PA - 05/27/2018 1400 EST Virgie Wall is being seen as a consultation from Dr. Barbosa. Chief Complaint Patient presents with ??? Back Pain mid to low back R>L burning stabbing The primary encounter diagnosis was Thoracic spine pain. A diagnosis of Chronic bilateral low back pain without sciatica was also pertinent to this visit. SUBJECTIVE: BATSHEVA Wall is a 63-year-old female with PMH of GERD and HTN s/p cholecystectomy 2018 here today with mid throacic back pain which extends around the right side of her trunk along her bra line to the front of her chest and abdomen x 1 year with no inciting event. Patient states she had similar back and abdominal pain last year and thought it was related to her gallbladder, however she had a cholecystectomy in November 2017, which relieved right sided abdominal pain, however the thoracic back pain and right-sided trunk pain as described above persisted. She also has complaints of low back pain and states she has chronic balance problems. Denies leg weakness. Denies bowel bladder dysfunction. Pain is constant and described as throbbing, achy, burning, stabbing. Progression: Worsening. Alleviating positions: Lying on her right side with a heat pad. Aggravating positions: Forward flexion, backextension,. Pain today 7/10, worst is 8/10. Patient also complains of nausea and a 40 pound weight loss over the last year. Denies fever. She states that most of the weight reduction is secondary to muscle loss . She says that her PCP is aware of this however is not doing anything about it. Denies fever Conservative treatment: Physical therapy: None. Chiropractics: None. Ice worsens condition. Heat provides relief. Medications: APAP occasionally with no relief. Tramadol for 4-5 months provides some relief. Injections: None. Social history: Current smoker, half PPD times 50 years. 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 Lives at home by herself. This is not workman's comp. Patient states she smokes marijuana for nausea which provides relief. Patient Active Problem List Diagnosis ??? Pain in joint, multiple sites ??? Migraine Past Medical History: Diagnosis Date ??? GERD (gastroesophageal reflux disease) ??? Hypertension ??? Migraine 30 years stable w/o recent headaches on propanolol and nortriptyline Past Surgical History: Procedure Laterality Date ??? SHOULDER SURGERY 2010 traumatic surgery injury requiring clavicle alize placement and right hip bone removal to shoulder Social History Substance Use Topics ??? Smoking status: Current Every Day Smoker Packs/day: 0.25 Years: 48.00 ??? Smokeless tobacco: Former User Types: Chew Comment: 6 cigs a day trying to quit ??? Alcohol use Yes Comment: rarely Family History Problem Relation Age of Onset ??? Hemochromatosis Father Current Outpatient Prescriptions Medication Sig Dispense Refill ??? amlodipine besylate (AMLODIPINE ORAL) Take 40 mg by mouth 2 times daily. ??? ascorbic acid (VITAMIN C) 500 mg tablet Take 1,000 mg by mouth daily. ??? bisacodyl (DULCOLAX) 5 mg EC tablet Take 5 mg by mouth daily as needed. ??? CALCIUM CARBONATE/VITAMIN D3 (CALTRATE 600 + D ORAL) Take by mouth. ??? DOCUSATE SODIUM (COLACE ORAL) Take 5 mg by mouth. ??? HYDROcodone-acetaminophen (VICODIN) 5-500 mg tablet Take 1 Tab by mouth as needed. ??? meloxicam (MOBIC) 15 mg tablet Take 1 Tab by mouth daily. 30 Tab 3 ??? naproxen (NAPROSYN) 500 mg tablet Take 500 mg by mouth 2 times daily. ??? nortriptyline (PAMELOR) 25 mg capsule Take 25 mg by mouth 3 times daily. ??? [place]-3 Fatty Acids-Vitamin E (FISH OIL) 1,000 mg capsule Take by mouth. ??? omeprazole (PRILOSEC) 20 mg capsule Take 20 mg by mouth daily. ??? PROPRANOLOL HCL (INDERAL ORAL) Take 20 mg by mouth. ??? traMADol (ULTRAM) 50 mg tablet Take 50 mg by mouth every 6 hours as needed for Pain. ??? UNABLE TO FIND Med Name: cranberry concentrate No current facility-administered medications for this visit. Allergies Allergen Reactions ??? Penicillins Rash Review of Systems Constitutional: Positive for activity change, fatigue and unexpected weight change. Eyes: Negative for visual disturbance. Respiratory: Negative for shortness of breath. Cardiovascular: Negative for chest pain. Gastrointestinal: Positive for constipation. Genitourinary: Negative for difficulty urinating. Musculoskeletal: Positive for back pain. Skin: Negative for rash. Neurological: Negative for weakness and numbness. Psychiatric/Behavioral: Negative for dysphoric mood. The patient is not nervous/anxious. Physical Exam Constitutional: She is oriented to person, place, and time. She appears well-developed. Eyes: EOM are normal. Cardiovascular: Normal rate. Pulmonary/Chest: Effort normal. Musculoskeletal: She exhibits tenderness. Neurological: She is alert and oriented to person, place, and time. Skin: Skin is dry. Psychiatric: She has a normal mood and affect. Ortho Exam Neurologic Exam Mental Status Oriented to person, place, and time. Cranial Nerves CN III, IV, Extraocular motions are normal. OBJECTIVE: Gait: The normal. Patient can heel and toe walk without difficulty. Romberg: Negative static and dynamic. Tandem: Negative. Inspection: No rash noted on back. TTP at spinous processes T5-T7 and bilateral thoracic paraspinal muscles r>L. Truncal flexion with fingertips to knees. Truncal extension: 20 degrees. Pain elicited with extension. Strength: 5/5 with IP, quads, hamstrings, TA, EHL, peroneals, gastrocnemius bilaterally. Sensation to light touch intact throughout lower tremors bilaterally. Reflexes: Patellar: 1+ on the right, 2+ on the left. Achilles: Absent bilaterally. Ankle clonus: Negative. Rakel's: Negative. DP: 2+ bilaterally. SLR: Negative bilaterally. Deepti's: 1/5. Hip ra nge of motion: Slightly decreased with internal rotation, no pain elicited. Sherly's: Negative bilaterally. Imaging: Thoracic plain radiographs: AP/LAT, 05/27/2018: Mild scoliosis, convex to the right. Kyphosis noted in the thoracic spine. Loss of disc height throughout thoracic spine with anterior osteophyte formation. Lumbar plain radiographs/LAT/flex/ex, 05/27/2018: Scoliosis, convex to the left. Loss of disc height throughout lumbar spine, worse at L5-S1. Facet arthropathy of the lower lumbar spine. No significant listhesis appreciated. ASSESSMENT: 63-year-old female with PMH of GERD and HTN s/p cholecystectomy in November 2017 here today with mid throacic back pain and right sided trunk pain involving multiple dermatomes including T6,T7, and T8 which may be radicular in nature secondary to nerve root impingement. No skin rash noted. Patient also has LBP which may secondary to spinal stenosis or facetogenic in nature. I have ordered thoracic andlumbar MRIs for further investigation. We discussed multiple treatment options including physical therapy, medical management, injection therapy, and surgical consultation. PLAN: 1. Schedule thoracic and lumbar MRI at [facility] in [facility] and follow-up with me one week later to review results. 2. Based on results of MRI, consider physical therapy, injection therapy or surgical consultation. -If Thoracic MRI demonstrates nerve root impingement consider right-sided transforaminal epidural steroid injection at that level. If no nerve root impingement, consider thoracic facet injections. -If lumbar MRI demonstrates spinal stenosis, consider TIMMY at L5-S1. If no spinal stenosis or nerve root impingement, consider bilateral lumbar facet injections at L4-L5 and L5-S1 or MBB with RFA. 3. Consider physical therapy and progressive home exercise program. 4. Continue meloxicam, Tylenol and heat as needed. Try to wean off tramadol. 5. Activities as tolerated. 6. Follow-up with PCP regarding nausea and weight loss. Dr. Pal was available for consultation, however a consult was not required. All or part of this document has been prepared with speech recognition software and/or keyboard financial data analyst techniques. Minor irregularities may be present. Other Orders Placed This Visit Procedures ??? THORACIC SPINE 2-3 VIEWS ??? MR THORACIC SPINE WO CONTRAST ??? MR LUMBAR SPINE WO CONTRAST documented in this encounter Plan of Treatment Scheduled Orders Name Type Priority Associated Diagnoses Orde r Schedule MR THORACIC SPINE WO CONTRAST Imaging Routine Thoracic spine pain Ordered: 05/27/2018 MR LUMBAR SPINE WO CONTRAST Imaging Routine Chronic bilateral low back pain without sciatica Thoracic spine pain Ordered: 05/27/2018 documented as of this encounter Procedures Procedure Name Priority Date/Time Associated Diagnosis Comments THORACIC SPINE 2-3 VIEWS Routine 05/27/2018 15:24 EST Thoracic spine pain documented in this encounter Results * THORACIC SPINE 2-3 VIEWS (05/27/2018 15:24 EST) Anatomical Region Laterality Modality Other 05/27/2018 15:2 4 EST 05/30/2018 8:52 EST Narrative 05/30/2018 8:52 EST THORACIC SPINE 2 VIEWS, L SPINE 4 OR MORE VIEWS ??05/27/2018 3:24 PM Clinical History/Comments: M54.6-Pain in thoracic [id number]; Mid back pain. Technique: AP and lateral [...] 3:24 PM Clinical History/Comments: M54.6-Pain in thoracic [id number]; Mid back pain. Technique: AP and lateral [...] documented in this encounter Visit Diagnoses Diagnosis Thoracic spine pain- Primary Pain in thoracic spine Chronic bilateral low back pain without sciatica documented in this encounter Historical Medications * This list may reflect changes made after this encounter. Medication Sig Dispensed Refills Start Date End Date traMADol (ULTRAM) 50 mg tablet Take 50 mg by mouth every 6 hours as needed for Pain. UNABLE TO FIND Med Name: cranberry concentrate amlodipine besylate (AMLODIPINE ORAL) Take 40 mg by mouth 2 times daily. added in this encounter Care Teams Research Recruiter Relationship Specialty Start Date End Date Ailyn Barbosa MD [address] [place] [phone] PCP - General 04/04/18 documented as of this encounter
--- OUTSIDE RECORDS SUMMARY | 2024-05-19 00:24 | XMS_ITS | Encounter Summary ---
Author Organization [facility] Address [address] [place] [address] Care Team Providers Care Medical Lab Technician Name Role Phone Gabbie Badillo MD Primary Care Provider Unavailabl e Reason for Referral * Radiology Services (Routine/Next Available) - Closed Specialty Diagnoses / Procedures Referred By Contac t Referred To Contact Diagnoses Pain in joint, multiple sites Procedures HAND 2 [place] [address] [address] [place] [address] Referral ID Status Reason Start Date Expiration Date Visits Re quested Visits Authorized [id number] Closed 02/20/2013 1 1 * Radiology Services (Routine/Next Available) - Closed Specialty Diagnoses / Procedures Referred By Contac t Referred To Contact Diagnoses Pain in joint, multiple sites Procedures KNEE 1 [place] [id number] [address] Referral ID Status Reason Start Date Expiration Date Visits Re quested Visits Authorized [id number] Closed 02/20/2013 1 1 * Radiology Services (Routine/Next Available) - Closed Specialty Diagnoses / Procedures Referred By Contac t Referred To Contact Diagnoses Pain in joint, multiple sites Procedures [place] [id number] [address] [place] [address] Referral ID Status Reason Start Date Expiration Date Visits Re quested Visits Authorized [id number] Closed 02/20/2013 1 1 Reason for Visit * Reason Comments Joint Pain all over left side i s worse Encounter Details Date Type Department Care Team (Late st Contact Info) Description 02/20/2013 9:30 EDT Office Visit [facility] Rheumatology & Immunology - [address] [phone] Alecia Morgan MD [address] [place] [address], [address] [place] [address] Pain in joint, multiple sites (Primary Dx); Generalized osteoarthrosis, involving multiple sites; Hallux rigidus; Trigger finger (acquired) Discharge Disposition: Auto Discharge Social History Tobacco [...] on file documented as of this encounter Last Filed Vital Signs Vital Sign Reading Time Taken Comments Blood Pressure 140/85 02/20/2013 0915 EDT Pulse 78 02/20/2013 0915 EDT Temperature - - Respiratory Rate 18 02/20/2013 0915 EDT Oxygen Saturation - - Inhaled Oxygen Concentration - - Weight 75.3 kg (166 lb) 02/20/2013 0915 EDT Height 157.5 cm (5' 2) 02/20/2013 0915 EDT Body Mass Index 30.36 02/20/2013 0915 EDT documented in this encounter Ordered Prescriptions Prescription Sig Dispensed Refills Start Date End Da te meloxicam (MOBIC) 15 mg tablet Take 1 Tab by mouth daily. 30 Tab 3 02/20/2013 documented in this encounter Discharge Disposition Disposition Code Departure Means Destination Auto Discharge documented in this encounter Progress Notes * Alecia Morgan MD - 02/20/2013 1012 EDT Rheumatology and Clinical Immunology Initial Patient Visit / Consultation 02/20/2013 Lakesha Munguia MD [address] [place] [id number] Chief Complaint Patient presents with ??? Joint Pain all over left side is worse Age: 58 y.o. Sex: female HPI: Ms. Wall is a 58 y.o. 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 Pt. Reports that she first remember having joint pain in her left big toe, she remembers swelling of her first metatarsal for which there was concern of gout. Blood work was negative at that time, however she never received a arthrocentesis. Due to joint pains in her hand 30 years prior she was diagnosed with RA and treated intermittently with various NSAIDs. Her joint pains which have been increasing in severity over the past year consist of the following (bottom to top): Left large toe (worse location): Duration 30 years, tenderness to palpation including constant pain, swelling, stiffness, worse with increased weight bearing, not worse in the morning Left metatarsals: Duration 30 years, tenderness to palpation including constant pain, worse with increased weight bearing, not worse in the morning Right large toe: Duration 30 years, tenderness to palpation including constant pain, swelling, stiffness, worse with increased weight bearing, not worse in the morning (not as severe as the left large toe) Right metatarsals: No pain Left Knee: sharp pain all the time, worse after work, patient can hear crepitus, subjective decreased range of motion, tender to touch Right Knee: Mild pain intermittently, otherwise no symptoms Bilateral Hips: lateral hip pain with palpation and movement, somewhat worse on left Bilateral subjective PIP and right CMC tenderness to palpation, stiffness, worse after excessive work Left Shoulder: positive for stiffness, tenderness to very light palpation Of note patient notes that she had previously been worked up for hemochromatosis and the work up was negative ROS Positive: Drops items occasionally, difficulty writing after extensive work with hands, dry mouth (for 30 years since initiating nortriptyline), constipation (same), lower back soreness over leftparaspinal region ROS Negative: CRAVEN, vision changes, focal neurological deficits, fevers/chills, CP, SOB, dry eyes, abdominal pain, n/v/d, urination changes or symptoms, raynaud's, rashes, dysphagia, odyophagia, oral ulcers Current Outpatient Prescriptions Medication Sig Dispense Refill ??? CALCIUM CARBONATE/VITAMIN D3 (CALTRATE 600 + D ORAL) Take by mouth. ??? ascorbic acid (VITAMIN C) 500 mg tablet Take 1,000 mg by mouth daily. ??? [place]-3 Fatty Acids-Vitamin E (FISH OIL) 1,000 mg capsule Take by mouth. ??? naproxen (NAPROSYN) 500 mg tablet Take 500 mg by mouth 2 times daily. ??? nortriptyline (PAMELOR) 25 mg capsule Take 25 mg by mouth 3 times daily. ??? PROPRANOLOL HCL (INDERAL ORAL) Take 20 mg by mouth. ??? omeprazole (PRILOSEC) 20 mg capsule Take 20 mg by mouth daily. ??? HYDROcodone-acetaminophen (VICODIN) 5-500 mg tablet Take 1 Tab by mouth as needed. ??? DOCUSATE SODIUM (COLACE ORAL) Take 5 mg by mouth. ??? bisacodyl (DULCOLAX) 5 mg EC tablet Take 5 mg by mouth daily as needed. ??? meloxicam (MOBIC) 15 mg tablet Take 1 Tab by mouth daily. 30 Tab 3 Allergies include: Penicillins Past Medical History Diagnosis Date ??? Migraine 30 years stable w/o recent headaches on propanolol and nortriptyline ??? GERD (gastroesophageal reflux disease) ??? Hypertension Past Surgical History Procedure Date ??? Shoulder surgery 2010 traumatic surgery injury requiring clavicle alize placement and right hip bone removal to shoulder Family History Problem Relation Age of Onset ??? Hemochromatosis Father History Social History ??? Marital Status: Spouse Name: N/A Number of Children: N/A ??? Years of Education: N/A Occupational History ??? Not on file. Social History Main Topics ??? Smoking status: Current Everyday Smoker -- 0.2 packs/day for 48 years ??? Smokeless tobacco: Not on file Comment: 6 cigs a day trying to quit ??? Alcohol Use: Yes rarely ??? Drug Use: No ??? Sexually Active: Not on file Other Topics Concern ??? Not on file Social History Narrative ??? No narrative on file PHYSICAL EXAMINATION: Vital Signs: HR 78 BP 140/85 RR 18 BMI 31 EXAM: General: Alert and in no acute distress HEENT: No intra-oral lesions, no scalp tenderness, vision grossly intact Resp: Clear to auscultation bilaterally, no wheezes/rales/rhonchi CV: Regular Rate and Rhythm, +S1/S2, no murmurs, No JVD GI: Soft, non-tender, non-distended, normoactive bowel sounds present Neuro: Alert and oriented X 3, CN II-XII grossly intact, No focal motor or sensory deficits noted. FTN intact, ADRIEL intact MSK Exam Neck w/ mildly decreased flexation and rotation to the left, no spinal tenderness Left Shoulder: severely limited mobility and strength, sensitive to even mild palpation throughout left shoulder Right Shoulder: FROM, non-tender, full strength Elbows/Wrists: FROM, full strength, no synovitis bilaterally Right CMC positive tenderness and crepitus, bilateral MCPs w/ full appearance and mild tenderness, however no christina synovitis or erythema; there is tenderness over right hand MCPs Bilateral heberden nodes on distal aspects of the digits left 2 and 3 DIPs and right 2-5 DIPs have Heberden nodes Right 4th digit with trigger finger Hips: Bilateral FROM w/ lateral tenderness in the area of the trochanter Right knee: full appearance, no discernable fluid wave, no erythema/warmness, no tenderness to palpation, FROM, no crepitus; there is bilateral knee medial joint line tenderness Left knee: even more full appearance, no discernable fluid wave, no erythema/warmness, no tenderness to palpation, FROM, positive crepitus, tenderness on the medial aspect of the joint Bilateral ankles: Mildly full appearing, FROM, no tenderness Right first toe, mildly enlarged, FROM, no tenderness, no erythema Left: Hallux rigidus, full, tender, no christina fluid collection palpable Left metatarsals: No enlargement, erythema swelling, FROM, however tender to palpation both feet appear puffy over MTPs, and is symmetrical, but tender only on right foot MTPs not left; could represent adipose tissue No spinal tenderness, able to bend to floor, normal gait LABS: (From OSH on 02/03/2013) CRP 0.31 (Normal Range less than 0.3) RF, ESR negative CBC and BMP WNL Assessment: Ms. Wall is a 58 y.o. F who presents w/ multiple joint pains most likely 2/2 generalized osteoarthritis given clinical presentation. However also on differential includes pseudogout (CPPD) given patients presentaiton. Do not suspect systemic inflammatory condition given clinical presentation. Patient with presentation c/w arthritis 2/2 hemochromatosis(and father has hemochromatosis), however patient states she has already received testing indicating that this was negative. In addition patient with right 4th trigger finger. Also has hallux rigidus. Plan: Osteoarthritis: -will discontinue naproxen and switch to Mobic 15mg daily and see if this works better for her - also educated her on quad strengthening exercises and weight loss for knees, and cushioned shoes with rigid sole for hallux rigiditus; she declined PT, and is not interested in steroid injections to joints (had painful one to left shoulder in past) -xr of left foot, left knee and bilateral hands to evaluate for CPPD and chronic changes and will notify her of result Follow up jose maria Woodson MD 02/20/2013 14:22 Attestation statement: I saw and examined the patient. I agree with the resident's/fellow's findings and plans as documented except as indicated above in bold italic. ALECIA MORGAN MD documented in this encounter Plan of Treatment Not on file documented as of this encounter Procedures Procedure Name Priority Date/Time Associated Diagnosis Comments KNEE 1 OR 2 VIEWS Routine 02/20/2013 11: 34 EDT Pain in joint, multiple sites HAND 2 VIEWS Routine 02/20/2013 11:34 EDT Pain in joint, multiple sites FOOT AP+LAT Routine 02/20/2013 11:34 EDT Pain in joint, multiple sites documented in this encounter Results * HAND [...] are seen. There is no chondrocalcinosis. Alecia oMrgan MD [facility] DIAGNOSTIC IMAGI NG ORDERABLES * KNEE 1 OR 2 VIEWS (02/20/2013 11:34 EDT) Anatomical Region Laterality Modality Other 02/20/2013 11:3 4 EDT 02/20/2013 16:40 EDT Narrative 02/20/2013 16:40 EDT Findings: AP and lateral weightbearing radiographs of the left knee were obtained. There is mild spurring at the patellofemoral joint. No erosions are identified. There is no significant joint effusion seen. No fracture is identified. Mild spurring is seen at the lateral margins of the knee joint as well. Impression: Mild degenerative changes without erosive arthropathy or synovitis appreciated. Procedure Note 02/20/2013 Findings: AP and lateral weightbearing radiographs of the left knee were obtained. There is mild spurring at the patellofemoral joint. No erosions are identified. There is no significant joint effusion seen. No fracture is identified. Mild spurring is seen at the lateral margins of the knee joint as well. Impression: Mild degenerative changes without erosive arthropathy or synovitis appreciated. Alecia Morgan MD [facility] DIAGNOSTIC IMAGI NG ORDERABLES * FOOT AP+LAT (02/20/2013 11:34 EDT) Anatomical Region Laterality Modality Other 02/20/2013 11:3 4 EDT 02/20/2013 16:41 EDT Narrative 02/20/2013 16:41 EDT Findings: AP and lateral radiographs of the left foot demonstrate significant osteoarthritis of the 1st metatarsophalangeal joint as evidenced by significant joint space loss, subchondral sclerosis and proliferative bony change. Osteophytes are present. The remaining joint spaces are preserved. A type I accessory navicular is incidentally seen. Impression: Osteoarthritis of the 1st metatarsophalangeal joint. Procedure Note 02/20/2013 Findings: AP and lateral radiographs of the left foot demonstrate significant osteoarthritis of the 1st metatarsophalangeal joint as evidenced by significant joint space loss, subchondral sclerosis and proliferative bony change. Osteophytes are present. The remaining joint spaces are preserved. A type I accessory navicular is incidentally seen. Impression: Osteoarthritis of the 1st metatarsophalangeal joint. Alecia Morgan MD [facility] DIAGNOSTIC IMAGI NG ORDERABLES documented in this encounter Visit Diagnoses Diagnosis Pain in joint, multiple sites- Primary Generalized osteoarthrosis, involving multiple sites Hallux rigidus Trigger finger (acquired) documented in this encounter Historical Medications * This list may reflect changes made after this encounter. Medication Sig Dispensed Refills Start Date End Date bisacodyl (DULCOLAX) 5 mg EC tablet Take 5 mg by mouth daily as needed. DOCUSATE SODIUM (COLACE ORAL) Take 5 mg by mouth. HYDROcodone-acetaminophen (VICODIN) 5-500 mg tablet Take 1 Tab by mouth as needed. omeprazole (PRILOSEC) 20 mg capsule Take 20 mg by mouth daily. PROPRANOLOL HCL (INDERAL ORAL) Take 20 mg by mouth. nortriptyline (PAMELOR) 25 mg capsule Take 25 mg by mouth 3 times daily. naproxen (NAPROSYN) 500 mg tablet Take 500 mg by mouth 2 times daily. [place]-3 Fatty Acids-Vitamin E (FISH OIL) 1,000 mg capsule Take by mouth. ascorbic acid (VITAMIN C) 500 mg tablet Take 1,000 mg by mouth daily. CALCIUM CARBONATE/VITAMIN D3 (CALTRATE 600 + D ORAL) Take by mouth. added in this encounter Care Teams Medical Lab Technician Relationship Specialty Start Date End Date Gabbie Badillo MD PCP - General 02/13/13 04/03/18 documented as of this encounter
--- OUTSIDE RECORDS SUMMARY | 2024-05-19 00:24 | XMS_ITS | Encounter Summary ---
Author Organization [facility] Address [address] [place] [address] Care Team Providers Care Proof Operator Name Role Phone Ailyn Barbosa MD Primary Care Provider [phone] Reason for Visit * Reason Onset Date Comments Returning Call 06/23/2018 Pt declining MRI at this time. Encounter Details Date Type Department Care Team (Late st Contact Info) Description 06/23/2018 Telephone [facility] Spine Program - [address] [place] [address] Alisha Ding PA-C [address] [place] [address] [place] [address] Returning Call (Pt declining MRI at this time. ) Social History Tobacco Use Types Packs/Day Years [...] encounter Miscellaneous Notes * Telephone Encounter - Pam Bonilla. - 06/23/2018 1012 EST Patient returned my call, stated she will not be going through with the MRI's we ordered as she unable to lay still for the required time of the exam Asked if she'd be willing to go 2 separate times to obtain - patient then stated that if anything was confirmed she would be unable to do surgery at this time, explained that was not necessarily the route that we would take. Patient stated she was unwilling to have injection as they have not workedin the past. Patient was asked how she would like to proceed, she stated she would like to discontinue treatments at this time and call us if she need anything further. documented in this encounter Plan of Treatment Not on file documented as of this encounter Visit Diagnoses Not on filedocumented in this encounter Care Teams Proof Operator Relationship Specialty Start Date End Date Ailyn Barbosa MD [address] [place] [address] PCP - General 04/04/18 documented as of this encounter
--- OUTSIDE RECORDS SUMMARY | 2024-05-19 00:24 | XMS_ITS | Encounter Summary ---
Author Organization [facility] Address [address] [place] [address] Care Team Providers Care Fitness Specialist Name Role Phone Gabbie Badillo MD Primary Care Provider Unavailabl e Encounter Details Date Type Department Care Team (Late st Contact Info) Description 12/01/2017 Results Only [facility] [phone] Gonzales Fallon Raji, DO [address] [place] [address] Social History Tobacco Use Types [...] Date/Time Associated Diagnosis Comments SURGICAL PATHOLOGY Routine 12/01/2017 19 :13 EDT documented in this encounter Results * SURGICAL PATHOLOGY (12/01/2017 19:13 EDT) Pathology Report: SURGICAL PATHOLOGY REPORT Reports generated via electronic interface contain original data; however they are lacking the format of the original report. Caution should be taken when reading/interpret ing unformatted reports. Name: ? ALIN WALL ? Accession #: ? [id number] ? : ? 1955 (Age: 62) ??F ? Collect Date: ? 12/01/2017 ? Location: ? [facility] ? Receive Date: ? 12/01/2017 ? Provider: FALLON GONZALES DO Copy to: SVETA SOLER MD ? Final Pathologic Diagnosis: GALLBLADDER, CHOLECYSTECTOMY: - Chronic cholecystitis and cholelithiasis. Document reviewed and electronically signed by: ZURDO NATION MD Report ??Date: 12/06/2017 08:35 By the signature above, the attending physician certifies that he/she has personally conducted a gross and/or microscopic examination of the described specimens and rendered or confirmed the above diagnosis. Specimen(s) Received: Gallbladder Clinical History: Epigastric pain Gross Description: ? Received in formalin labelled with proper patient identification (initials G, M) and gallbladder is an intact gallbladder (10.5 x 3.6 x 1.1 cm) with an attached segment of cystic duct (0.8 cm in length x 0.6 cm in diameter). ? The serosa is espinal-hernandez and glistening. The mucosa is espinal-green with a mild amount of scattered yellow excrescences and the wall is 0.2 cm in thickness. The cystic duct lumen is patent. The cystic duct margin is inked blue. Multiple hernandez-yellow friable choleliths are present measuring 5.0 x 3.5 x 0.7 cm in aggregate. ? Two graphic art sales representative sections and the inked, en face cystic duct margin are submitted in 1. Dr. Cavazos 12/02/2017 2:23 PM End of Report [facility] 12/01/2017 19:1 3 EDT 12/01/2017 19:13 EDT Fallon Gonzales DO PATHOLOGY ORDERABLES [facility] [address] [place] [address] documented in this encounter Visit Diagnoses Not on filedocumented in this encounter Care Teams Fitness Specialist Relationship Specialty Start Date End Date Gabbie Badillo MD PCP - General 02/13/13 04/03/18 documented as of this encounter
--- OUTSIDE RECORDS SUMMARY | 2024-05-19 00:24 | XMS_ITS | Encounter Summary ---
Author Organization [facility] Address [address] [place] [address] Care Team Providers Care Brake Tester Name Role Phone Ailyn Barbosa MD Primary Care Provider [phone] Reason for Visit * Reason Onset Date Comments Appointment Related 06/23/2018 MRI Encounter Details Date Type Department Care Team (Late st Contact Info) Description 06/23/2018 Telephone [facility] Spine Program - [address] [place] [address] Alisha Ding, MANJEET [address] [place] [address] [place] [address] Appointment Related (MRI) Social History Tobacco Use Types Packs/Day Years [...] Miscellaneous Notes * Telephone Encounter - Pam Bonilla - 06/23/2018 [address] to patient to attempt to schedule MRI @ [facility] has also made several attempts. Last message ask her to call back to confirm if she still wished to proceed documented in this encounter Plan of Treatment Not on file documented as of this encounter Visit Diagnoses Not on filedocumented in this encounter Care Teams Brake Tester Relationship Specialty Start Date End Date Ailyn Barbosa MD [address] [place] [phone] PCP - General 04/04/18 documented as of this encounter
--- OUTSIDE RECORDS SUMMARY | 2024-05-19 00:24 | XMS_ITS | Referral Summary ---
Author Organization [facility] Address [address] [place] [address] Care Team Providers Care Staffing And Scheduling Coordinator Name Role Phone Ailyn Barbosa MD Primary Care Provider Allergies Active Allergy Reactions Criticality Noted Date Comments Penicillins Rash 02/20/2013 Medications Medication Sig Dispensed Refills Start Date End Date Status CALCIUM CARBONATE/VITAMIN D3 (CALTRATE 600 + D ORAL) Take by mouth. Active ascorbic acid (VITAMIN C) 500 mg tablet Take 1,000 mg by mouth daily. Active [place]-3 Fatty Acids-Vitamin E (FISH OIL) 1,000 mg [...] Pain in joint, multiple sites 02/20/2013 Migraine Social History Tobacco Use Types Packs/Day Years [...] on file Sexual Orientation Not on file Last Filed Vital Signs Vital Sign Reading Time Taken Comments Blood Pressure 140/85 02/20/201315 EDT Pulse 78 02/20/2013914 EDT Temperature - - Respiratory Rate 18 02/20/2013914 EDT Oxygen Saturation - - Inhaled Oxygen Concentration - - Weight 75.3 kg (166 lb) 02/20/2013 09 EDT Height 157.5 cm (5' 2) 02/20/2013914 EDT Body Mass Index 30.36 02/20/2013914 EDT Plan of Treatment Not on file Care Teams Staffing And Scheduling Coordinator Relationship Specialty Start Date End Date Ailyn Barbosa MD [address] [place] [address] PCP - General 04/04/18
[2024-05-19] MEDS: POTASSIUM CHLORIDE 10 MEQ/100 ML BAG 100 MEQ IV_INF (00:30)
--- NOTE | 2024-05-19 02:48 | W.EDPROG ---
Date of service: 05/19/24 Time of Service: 02:48 Medical Decision Making 02:45 - Patient was signed out to me pending callback from [facility] for possible transfer. She had presented with seizure-like activity and is never returned to baseline mental status. May potentially be related to seizure activity versus sedating meds she received for seizure activity. She was seen by tele-neurology who recommend transfer to EEG capable facility. Prior provider reports speaking to the [facility] transfer center and patient was signed out to me pending callback. At around 1 AM I had still not received a call back. We placed a call to [facility]. Per the transfer center, they had never been informed of a request for transfer. They have just called back now to inform me they do not have capacity. Patient is stable but has not returned to baseline still. There has been no seizure-like activity. Concern for continued subclinical seizure activity. Call placed to [facility]. 04:15 - Discussed with neurologist at [facility]. 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 Would like patient transferred to the ED at [facility]. Accepting physician is Dr. Cohn. Patient's mental status remains altered though she will awaken and answer simple questions. Heart rate has remained normal. Blood pressure is a little soft when sleeping. 600 mg of acyclovir ordered. Patient to be transferred to [facility] with doctor assistant, monitoring, seizure precautions. Lab Data Lab results reviewed: Yes I reviewed the patient's lab results. Sign Out Sign Out Data: Sign Out Comment: 69-year-old female patient presenting by EMS for altered mental status and convulsion activity, received 2 doses of benzos and a Keppra load given concern for subclinical status and a failure to return to baseline in between events. Maintaining her airway, hemodynamically stable, laboratory workup significant only for mild hypokalemia which is being repleted. CT head unremarkable. [facility] teleneuro evaluated the patient, recommends transfer for continuous EEG and neuro evaluation. Did have a history on her real name chart for a similar episode a year ago, thought to be potentially conversion disorder with a reassuring workup at that time. Patient mental status improving but not back to baseline, now able to follow simple commands and answer simple questions. Last updated by Brionna Varghese MD at 05/19/24 00:18 Discharge Plan Disposition Patient Disposition: Transfer-Acute Inpatient Care Specific Acute Inpt Facility: [facility] Condition: Stable Discharge Details Chief Complaint: AMS/LOC Clinical Impression: Witnessed seizure-like activity Primary Care Provider: Ailyn Barbosa ED Provider: Tay Mendoza
[2024-05-19] MEDS: Normal Saline 1,000 ML 1000 ML IV (04:42)
== END 2024-05-19 06:25 | disposition short-term general hospital (02) ==
PROVIDERS: Emergency Medicine; Emergency Provider Emergency Medicine; PCP Family Medicine
DX: R41.82 Altered mental status, unspecified (principal); R56.9 Unspecified convulsions; E87.6 Hypokalemia; I10 Essential (primary) hypertension; E78.5 Hyperlipidemia, unspecified
CPT/HCPCS: 00123; 80053; 80307; 93005; 96365; 96366; 96367; 99285; 70450; 80320; 80329; 81003; 81015; 83735; 84443; 84484; 85025; 85610; 93010; J0133; J1953; J2250; J3480